=== PATIENT | female | born 1955 | race African-American/Black ===

== ENCOUNTER → 2016-08-15 | Outpatient (CLI) | payer OTHER ==
[2013-12-30 15:13] VITALS: BP 166/102
[~2016-08-15] MED LIST: CONTRAST GIVEN MC PRN; IOHEXOL 240 MG/ML 50ML VIAL. PO ONE; IOHEXOL 300 MG/ML 75 ML VIAL IV ONE; diovan; lotrel; metformin; tenex
[2016-08-15 07:26] LABS: CREATININE 0.9 mg/dL (0.6-1.0); GFR 76.8
--- NOTE | 2016-08-15 10:34 | RAD ---
EXAM: CT abdomen/pelvis with contrast. HISTORY: Left lower quadrant pain. TECHNIQUE: Computed tomography of the abdomen and pelvis was performed after the intravenous administration of 75 mL Omnipaque 300. COMPARISON: None. FINDINGS: Lung windows through the visualized portions of the bases reveal mild atelectasis. Bone windows reveal no suspicious lesions. Subcentimeter hypoattenuating foci in the liver most likely represent cysts. A phrygian cap is noted at the gallbladder. The common duct measures 11 mm. There is no distal obstructing lesion. The pancreas and pancreatic duct are unremarkable. The left adrenal gland is thickened without a discrete mass. The spleen is unremarkable. A calculus in the left renal collecting system measures 11 x 6 mm. There is a tiny calculus at the right renal lower pole. No ureteral calculi are seen. A cyst laterally in the left kidney measures 4.2 cm. There is moderate diffuse colonic diverticulosis. 2 diverticula along the ascending colon appear mildly inflamed. There is no drainable collection. Mild hyperemia about the left colon may reflect prior diverticulitis. Multiple calcifications in the uterus are consistent with degenerated fibroids. An uncalcified fibroid on the left measures 3.9 cm. A small bowel hernia contains only fat. There are no pathologically enlarged lymph nodes. There is no obstruction. IMPRESSION: 1. Diffuse moderate to severe colonic diverticulosis. 2 diverticula along the ascending colon appear mildly inflamed currently, consistent with mild acute diverticulitis. Correlate with symptoms. There is no drainable collection. Sequela of prior diverticulitis are suspected along the sigmoid colon. 2. Mild extrahepatic biliary dilatation without a clear distal obstructing lesion. Correlate for cholestasis to assess significance. MRCP/ERCP could further evaluate if there is persistent concern. 3. A left renal collecting system calculus measures 11 mm. There is a tiny right lower pole renal calculus. *One or more of the following individualized dose reduction techniques were utilized for this examination: 1. Automated exposure control. 2. Adjustment of the mA and/or kV according to patient size. 3. Use of iterative reconstruction technique.
== END | disposition home or self-care (01) ==
LOC: CT 06:54
PROVIDERS: ATTEND Family Medicine
DX: R10.32 Left lower quadrant pain (principal); K57.30 Diverticulosis of large intestine without perforation or abscess without bleeding; N20.0 Calculus of kidney
CPT/HCPCS: 36415; 74177; 82565; Q9966; Q9967

== ENCOUNTER → 2016-09-08 | Day surgery (SDC) | payer OTHER ==
[~2016-09-08] MED LIST changes: +AMLO10TA4 PO; +CIPR500T94 PO; -CONTRAST GIVEN MC PRN; +HYDR50TA6 PO; -IOHEXOL 240 MG/ML 50ML VIAL. PO ONE; -IOHEXOL 300 MG/ML 75 ML VIAL IV ONE; +IV RINGERS,LACTATED 1000ML 1,000 ML IV SCH; +LIDOCAINE 2% PF Vial for OR 5 ML VIAL. ONE; +METF750T2 PO; +METR500T4 PO; +OLME40TA PO; +PROPOFOL 40 ML IV ONE
[2016-09-08 13:20] VITALS: BP 123/76
--- NOTE | 2016-09-09 11:34 | PATHOLOGY ---
PATHOLOGY REPORT * * * * * * * * FINAL DIAGNOSIS: Colon, sigmoid, biopsy: - Adenomatous polyp. (MICHIM:; d/t: 09/09/16) REPORT ELECTRONICALLY SIGNED BY: Vj Valdez M.D. DATE/TIME: 09/09/2016 11:32 * * * * * * * * GROSS PATHOLOGY: Received in formalin labeled "Esperanza Osuna and polyp sigmoid colon," is a 0.9 x 0.6 x 0.4 cm polypoid piece of red-farr soft tissue. The margin is inked and the tissue is sectioned perpendicular to the margin and submitted in its entirety in cassette A1. (TTL; 09/08/2016) INITIAL CPT CODE(S): A; 99252 Professional services performed by [facility] [address] Technical services performed by [facility] at [address] [place] [address]. SPECIMEN(S) RECEIVED: A.Polyp sigmoid colon CLINICAL HISTORY: Screening, abdominal pain PATIENT: ESPERANZA OSUNA /AGE: 6 1955 (Age: 60) PATIENT #: [id number] ALT CASE #: SPECIMEN COLLECTION DATE: 09/08/2016 SPECIMEN RECEIVED DATE: 09/08/2016 [facility] - [address] [place] [address] - PHONE: [phone] * * * END OF REPORT * * *
== END | disposition home or self-care (01) ==
LOC: ENDOS 11:29
PROVIDERS: ATTEND Internal Medicine Gastroenterology
DX: K64.1 Second degree hemorrhoids (principal); D12.5 Benign neoplasm of sigmoid colon; K57.30 Diverticulosis of large intestine without perforation or abscess without bleeding; I10 Essential (primary) hypertension; Z87.442 Personal history of urinary calculi
CPT/HCPCS: 45385; 82947; J2704

== ENCOUNTER → 2016-12-21 | Outpatient (CLI) | payer OTHER ==
[2016-09-08 13:20] VITALS: BP 123/76
[~2016-12-21] MED LIST changes: -IV RINGERS,LACTATED 1000ML 1,000 ML IV SCH; -LIDOCAINE 2% PF Vial for OR 5 ML VIAL. ONE; -METR500T4 PO; +METR500T8 PO; -OLME40TA PO; +OLME40TA12 PO; -PROPOFOL 40 ML IV ONE
--- NOTE | 2016-12-21 11:30 | RAD ---
CT abdomen/pelvis without contrast 12/21/2016 at 0904 hours Indication: Calculus of kidney, left flank pain Comparison: CT abdomen/pelvis 08/15/2016 Technique: Multiple axial CT images of the abdomen and pelvis were performed without intravenous contrast. Coronal and sagittal reformats are provided. Findings: Lung bases are clear. Heart size is within normal limits. Simple appearing 6 mm cyst identified in the inferior right hepatic lobe. The spleen is normal. Bilateral adrenal glands are normal. The gallbladder is present without adjacent inflammatory changes. Pancreas is normal in appearance. No intrahepatic or extrahepatic biliary ductal dilatation. The abdominal aorta is normal in course and caliber. There are no enlarged lymph nodes in the abdomen or pelvis. There is no free intraperitoneal air. No free fluid within the abdomen or pelvis. There is a 10 mm nonobstructing calculus in the left renal pelvis, unchanged since 08/15/2016. Two 3-4 mm calculi are identified in the interpolar region of the right kidney. There is no hydronephrosis. Stable simple appearing left renal cysts. No contour deforming renal mass. Small and large bowel are normal in caliber. A normal appendix is visualized. Colonic diverticulosis. No pericolonic inflammatory changes are present. The urinary bladder is normal in appearance. Calcite uterine fibroids are noted. No adnexal masses are identified. No suspicious osseous lesions are identified. Impression: 1. Stable 10 mm nonobstructing calculus in the left renal pelvis, unchanged since 08/15/2016. No hydronephrosis. 2. Two nonobstructing renal calculi are identified in the interpolar region of the right kidney measuring 3-4 mm. No hydronephrosis. 3. Colonic diverticulosis without CT evidence for acute diverticulitis. 4. Uterine leiomyoma are present. No adnexal masses. PQRS Compliance Statement: One or more of the following individualized dose reduction techniques were utilized for this examination: 1. Automated exposure control 2. Adjustment of the mA and/or kV according to patient size 3. Use of iterative reconstruction technique
== END | disposition home or self-care (01) ==
LOC: CT 08:59
PROVIDERS: ATTEND Urology
DX: N20.0 Calculus of kidney (principal); K57.30 Diverticulosis of large intestine without perforation or abscess without bleeding; D25.9 Leiomyoma of uterus, unspecified
CPT/HCPCS: 74176

== ENCOUNTER → 2017-05-15 | Outpatient (CLI) | payer OTHER ==
[2016-09-08 13:20] VITALS: BP 123/76
--- NOTE | 2017-05-15 10:20 | CARD ---
APPROVED REPORT EXAM: Two-dimensional and M-mode echocardiogram with Doppler and color Doppler. Other Information Quality : Good INDICATION Abnormal ECG Hypertension/HCVD 2D DIMENSIONS RVDd3.0 (2.9-3.5cm)Left Atrium(2D)3.3 (1.6-4.0cm) IVSd1.4 (0.7-1.1cm)Aortic Root(2D)2.6 (2.0-3.7cm) LVDd4.6 (3.9-5.9cm)LVOT Diameter1.9 (1.8-2.4cm) PWd1.0 (0.7-1.1cm)IVSs1.3 (0.8-1.2cm) LVDs3.2 (2.5-4.0cm)FS (%) 30.5 % PWs1.2 (0.8-1.2cm)SV56.6 ml LVEF(%)58.0 (>50%) Aortic Valve AoV Peak Bunny.154.0cm/sAoV VTI33.9cm AO Peak GR.9.5mmHgLVOT Peak Bunny.121.2cm/s AO Mean GR.5mmHgAVA (VMAX)1.70cm2 Mitral Valve MV E Zqubtxcn60.8cm/sMV E Peak Gr.28mmHg MV DECEL [id number] A Fxigddcy20.9cm/s MV WUO28noF/A Ratio0.8 MVA (PHT)2.25cm2 TDI E/Lateral E'8.7E/Medial E'9.2 Pulmonary Valve PV Peak Podllqcy712.2cm/sPV Peak Grad.5mmHg Tricuspid Valve TR P. Dvgkmtdc900za/sRAP MXVUPYFE2hiXw TR Peak Gr.30idGoAXGV84hkAi LEFT VENTRICLE The left ventricle is normal size. Sigmoid septum. There is mild septal hypertrophy. The left ventric ular systolic function is normal. The ejection fraction is estimated at 55-60%. There is normal LV se gmental wall motion. Transmitral Doppler flow pattern is Grade I-abnormal relaxation pattern. RIGHT VENTRICLE The right ventricle is normal size. The right ventricular systolic function is normal. ATRIA The left atrium size is normal. The right atrium size is normal. The interatrial septum is intact wit h no evidence for an atrial septal defect or patent foramen ovale as noted on 2-D or Doppler imaging. AORTIC VALVE The aortic valve is normal in structure and function. Doppler and Color Flow revealed no significant aortic regurgitation. There is no significant aortic valvular stenosis. MITRAL VALVE The mitral valve is thickened but opens well. There is no evidence of mitral valve prolapse. There is no mitral valve stenosis. Doppler and Color-flow revealed trace mitral regurgitation. TRICUSPID VALVE The tricuspid valve leaflets are thickened , but open well. Doppler and Color Flow revealed mild to m oderate tricuspid regurgitation. There is no tricuspid valve stenosis. PULMONIC VALVE Doppler and Color Flow revealed mild pulmonic valvular regurgitation. GREAT VESSELS The aortic root is normal in size. The ascending aorta is normal in size. The IVC is normal in size a nd collapses >50% with inspiration. PERICARDIAL EFFUSION There is no pleural effusion. There is no evidence of significant pericardial effusion. Critical Notification Critical Value: No <Conclusion> The left ventricular systolic function is normal. The ejection fraction is estimated at 55-60%. There is normal LV segmental wall motion. Transmitral Doppler flow pattern is Grade I-abnormal relaxation pattern. Trace mitral regurgitation. Mild to moderate tricuspid regurgitation. There is no evidence of significant pericardial effusion.
== END | disposition home or self-care (01) ==
LOC: ECHO 07:46
PROVIDERS: ATTEND Internal Medicine Cardiovascular Disease
DX: I11.9 Hypertensive heart disease without heart failure (principal); R94.31 Abnormal electrocardiogram [ECG] [EKG]
CPT/HCPCS: 93306

== ENCOUNTER → 2017-06-19 | Outpatient (CLI) | payer OTHER ==
[2017-06-19] MEDS: REGADENOSON 0.4 MG/5 ML DISP.SYRIN. IV (10:22)
== END | disposition home or self-care (01) ==
LOC: NM 08:33
DX: R07.9 Chest pain, unspecified (principal); R20.0 Anesthesia of skin; M79.602 Pain in left arm; R51 Headache; I10 Essential (primary) hypertension
CPT/HCPCS: 78452; 93017; 96374; 96375; 96376; A9500; J2785

== ENCOUNTER 2017-10-30 13:04 | Emergency (ER) | payer OTHER | END 2017-10-30 14:13 | disposition home or self-care (01) | LOC: ER 13:04 | DX: S80.821A Blister (nonthermal), right lower leg, initial encounter (principal); L08.9 Local infection of the skin and subcutaneous tissue, unspecified; E11.9 Type 2 diabetes mellitus without complications; I10 Essential (primary) hypertension; Z87.442 Personal history of urinary calculi; W57.XXXA Bitten or stung by nonvenomous insect and other nonvenomous arthropods, initial encounter; Y92.89 Other specified places as the place of occurrence of the external cause; Y93.89 Activity, other specified; Y99.8 Other external cause status | CPT/HCPCS: 99283 ==

== ENCOUNTER → 2018-05-17 | Outpatient (CLI) | payer OTHER ==
[2017-10-30 13:31] VITALS: BP 168/84
[~2018-05-17] MED LIST changes: +CEPH-264 PO; +CONTRAST GIVEN. MC PRN; +IOHEXOL 240 MG/ML 50ML VIAL. IV ONE; +METR-84 PO; -METR500T8 PO
[2018-05-17] MEDS: IOHEXOL 300 MG/ML 100ML VIAL. IV ONE (09:38)
--- NOTE | 2018-05-17 16:25 | RAD ---
CT Abdomen and Pelvis with contrast 05/17/2018 Clinical Indication: Left lower quadrant abdominal pain Comparison: CT abdomen and pelvis 12/21/2016 Technique: Multiple CT images of the abdomen and pelvis were obtained with contrast following intravenous administration of 75 mL Isovue 370 *One or more of the following individualized dose reduction techniques were utilized for this examination: 1. Automated exposure control. 2. Adjustment of the mA and/or kV according to patient size. 3. Use of iterative reconstruction technique. Findings: Heart size is normal. Lung bases are clear. Multiple right breast calcifications. Liver is normal in size and morphology. Stable hepatic subcentimeter hypodensities hepatic segment 4A series 2/image 17, segment 5 image 24 and segment 6 image 27. Gallbladder unremarkable. No biliary ductal dilatation. Spleen and right adrenal gland unremarkable. There is stable low-attenuation nodularity of the left adrenal gland, likely adrenal hyperplasia or benign adenomatous change. Right kidney unremarkable. Stable left renal simple cysts. Decrease in nonobstructive calculus in the left renal pelvis measuring 0.4 cm. Development of nonobstructive calculus in the inferior pole left kidney measuring 0.4 cm. Mild pancreatic atrophy. No main branch pancreatic ductal dilatation. Small and large bowel loops are normal in caliber without obstruction. Pancolonic diverticulosis, greatest remarkable degree, at the sigmoid colon without acute diverticulitis. The appendix is normal in appearance. No abdominal free fluid. No pneumoperitoneum. No retroperitoneal or mesenteric lymphadenopathy. Heterogeneous, nodular enlargement of the uterus fundus, some of the nodules have internal calcification most consistent with fibroids. Minimally distended and unopacified urinary bladder unremarkable. No iliac or inguinal lymphadenopathy. There are no destructive osseous lesions. IMPRESSION: 1. Right breast calcifications, indeterminate. Correlation with mammography is recommended. 2. No CT evidence of acute abdominal or pelvic process. 3. Pancolonic diverticulosis without diverticulitis. 4. Nonobstructive left nephrolithiasis. 5. Fibroid uterus. Electronically signed by: Madan Gannon MD (05/17/2018 4:21 PM) [id number]
== END | disposition home or self-care (01) ==
LOC: CT 08:06
PROVIDERS: ATTEND Family Medicine
DX: K57.30 Diverticulosis of large intestine without perforation or abscess without bleeding (principal); K86.89 Other specified diseases of pancreas; N20.0 Calculus of kidney; D25.9 Leiomyoma of uterus, unspecified; N85.2 Hypertrophy of uterus; N28.1 Cyst of kidney, acquired
CPT/HCPCS: 74177; Q9967

== ENCOUNTER → 2018-10-25 | Outpatient (CLI) | payer OTHER ==
[2017-10-30 13:31] VITALS: BP 168/84
[~2018-10-25] MED LIST changes: -CONTRAST GIVEN. MC PRN; -IOHEXOL 240 MG/ML 50ML VIAL. IV ONE; +METR-34 PO; -METR-84 PO
--- NOTE | 2018-10-25 16:48 | KCIC ---
Pelvic ultrasound to include transabdominal and transvaginal imaging 10/25/2018 CLINICAL HISTORY: Left-sided pelvic pain. History of uterine fibroids. TECHNIQUE: Using the distended urinary bladder as a sonographic window, a real-time ultrasound examination of the pelvis was performed. Additionally in an attempt to better evaluate the uterus and adnexa, a transvaginal ultrasound study was performed. Multiple images were obtained. Comparison is made to the patient's CT scan of the abdomen and pelvis dated 08/15/2016. The uterus is mildly enlarged. It measures 11.8 x 7.9 x 5.6 cm in longitudinal, transverse, and AP dimensions. The endometrial echo complex measures 1.1 mm in thickness which is within normal limits. Multiple hypoechoic partially calcified masses are seen scattered throughout the uterus consistent with fibroids. These measure 1 cm to 4 cm in size. The largest fibroid is located within the left posterior aspect of the lower uterine segment. Both ovaries are within normal limits in size and echogenicity. The right ovary measures 2.8 x 2.3 x 1.7 cm in size. The left ovary measures 2.9 x 2.1 x 1.6 cm in size. No adnexal mass is seen. No free fluid is noted. IMPRESSION: Enlarged fibroid uterus. Otherwise negative study. Electronically signed by: Rob Tadeo MD (10/25/2018 4:45 PM) [facility]
== END | disposition home or self-care (01) ==
LOC: KCIC US 15:26
PROVIDERS: ATTEND Obstetrics & Gynecology
DX: N85.2 Hypertrophy of uterus (principal); N85.9 Noninflammatory disorder of uterus, unspecified
CPT/HCPCS: 76830; 76856

== ENCOUNTER 2019-07-31 05:09 | Emergency (ER) | payer OTHER, MEDICARE ==
[~2019-07-31] VITALS: Ht 167.6 cm; Wt 97.7 kg
[~2019-07-31 05:09] MED LIST changes: -METF750T2 PO; +METF750T39 PO
[2019-07-31 05:54] LABS: BILIRUBIN,URINE NEGATIVE (NEG); CLARITY,URINE CLEAR; COLOR,URINE YELLOW; NITRITE,URINE NEGATIVE (NEG); PH,URINE 7.5; PROTEIN,URINE NEGATIVE (NEG-TRACE); UROBILINOGEN,URINE 0.2 mg/dL (0.2 mg/dL)
--- NOTE | 2019-07-31 06:00 | PHYS DOC ---
Past Medical History Past Medical History: Diabetes-Type II, Hypertension, Kidney Stone, Other Additional Past Medical Histor: BENIGN TUMORS IN UTERUS (LORENZO FARAH DO) Past Surgical History: Other Additional Past Surgical Histo: BIOPSIES BREAST,LITHOTRIPSY (LORENZO FARAH DO) Smoking Status: Never Smoker Alcohol Use: None Drug Use: None (LORENZO FARAH DO) Adult General Chief Complaint Chief Complaint: ABDOMINAL PAIN HPI HPI Patient is a 63 year old -[place] female with history of kidney stones, hypertension, uterine fibroids who presents with acute onset left flank pain starting 2 hours prior to ED arrival radiating to left pelvis. Pain is described as sharp and burning component and is constant. Pain is not worse with position change, palpation or ambulation. Reports nausea and sweats. No fevers or chills. No CVA tenderness, urinary frequency urgency dysuria or hematuria. No prior abdominal surgeries. No other acute symptoms or complaints[] (LORENZO FARAH DO) Review of Systems Review of Systems Review symptoms as per history of present illness. All other review symptoms are negative. All other systems were reviewed and found to be within normal limits, except as documented in this note. (LORENZO FARAH DO) Current Medications Current Medications Current Medications Medications (Trade) Dose Ordered Sig/Taisha Start Time Stop Time Status Last Admin Dose Admin Info (CONTRAST GIVEN -- Rx MONITORING) 1 each PRN DAILY PRN 07/31/19 07:30 08/02/19 07:29 Iohexol (Omnipaque 300 Mg/ml) 75 ml 1X ONCE 07/31/19 07:30 07/31/19 07:31 DC 07/31/19 07:33 75 ML (CHAVEZ WEIR MD) Allergies Allergies Allergies Coded Allergies Type Severity Reaction Last Updated Verified No Known Drug Allergies 09/08/16 No (CHAVEZ WEIR MD) Physical Exam Physical Exam Constitutional: Discomfort secondary pain, well nourished, no acute distress, no n-toxic appearance. [] HENT: Normocephalic, atraumatic, bilateral external ears normal, oropharynx moist, nose normal. [] Eyes: PERRLA, EOMI, conjunctiva normal, no discharge. [] Neck: Normal range of motion, no tenderness, supple, no stridor. [] Cardiovascular:Heart rate regular rhythm, no murmur [] Lungs & Thorax: Bilateral breath sounds clear to auscultation [] Abdomen: Bowel sounds normal, soft, nondistended, no tenderness[] Skin: Warm, dry [] Back: No tenderness, no CVA tenderness. [] Extremities: No tenderness,no edema. [] Neurologic: Alert and oriented X 3, normal motor function, normal sensory function, no focal deficits noted. [] Psychologic: Affect normal, judgement normal, mood normal. [] (LORENZO FARAH DO) Current Patient Data Vital Signs Vital Signs Date Time Temp Pulse Resp B/P (MAP) Pulse Ox O2 Delivery O2 Flow Rate FiO2 07/31/19 06:21 76 197/94 (128) 98 Room Air 07/31/19 05:20 97.6 20 97.6 (CHAVEZ WEIR MD) Lab Values Laboratory Tests Test 07/31/19 05:23 07/31/19 06:43 Urine Collection Type Unknown Urine Color Yellow Urine Clarity Clear Urine pH 7.5 Urine Specific [place] 1.010 Urine Protein Negative mg/dL (NEG-TRACE) Urine Glucose (UA) Negative mg/dL (NEG) Urine Ketones (Stick) Negative mg/dL (NEG) Urine Blood Moderate (NEG) Urine Nitrite Negative (NEG) Urine Bilirubin Negative (NEG) Urine Urobilinogen Dipstick 0.2 mg/dL (0.2 mg/dL) Urine Leukocyte Esterase Moderate (NEG) Urine RBC 3-5 /HPF (0-2) Urine WBC 11-20 /HPF (0-4) Urine Squamous Epithelial Cells Few /LPF Urine Bacteria Moderate /HPF (0-FEW) White Blood Count 11.5 x10^3/uL (4.0-11.0) H Red Blood Count 4.67 x10^6/uL (3.50-5.40) Hemoglobin 13.6 g/dL (12.0-15.5) Hematocrit 41.3 % (36.0-47.0) Mean Corpuscular Volume 89 fL (79-100) Mean Corpuscular Hemoglobin 29 pg (25-35) Mean Corpuscular Hemoglobin Concent 33 g/dL (31-37) Red Cell Distribution Width 15.6 % (11.5-14.5) H Platelet Count 241 x10^3/uL (140-400) Neutrophils (%) (Auto) 92 % (31-73) H Lymphocytes (%) (Auto) 4 % (24-48) L Monocytes (%) (Auto) 4 % (0-9) Eosinophils (%) (Auto) 1 % (0-3) Basophils (%) (Auto) 0 % (0-3) Neutrophils # (Auto) 10.5 x10^3/uL (1.8-7.7) H Lymphocytes # (Auto) 0.4 x10^3/uL (1.0-4.8) L Monocytes # (Auto) 0.4 x10^3/uL (0.0-1.1) Eosinophils # (Auto) 0.1 x10^3/uL (0.0-0.7) Basophils # (Auto) 0.0 x10^3/uL (0.0-0.2) Platelet Estimate Pending Sodium Level 140 mmol/L (136-145) Potassium Level 3.7 mmol/L (3.5-5.1) Chloride Level 105 mmol/L (98-107) Carbon Dioxide Level 25 mmol/L (21-32) Anion Gap 10 (6-14) Blood Urea Nitrogen 16 mg/dL (7-20) Creatinine 0.9 mg/dL (0.6-1.0) Estimated GFR (Cockcroft-Gault) 76.0 BUN/Creatinine Ratio 18 (6-20) Glucose Level 131 mg/dL (70-99) H Lactic Acid Level 1.5 mmol/L (0.4-2.0) Calcium Level 9.3 mg/dL (8.5-10.1) Total Bilirubin 0.9 mg/dL (0.2-1.0) Aspartate Amino Transferase (AST) 20 U/L (15-37) Alanine Aminotransferase (ALT) 13 U/L (14-59) L Alkaline Phosphatase 68 U/L (46-116) Troponin I Quantitative < 0.017 ng/mL (0.000-0.055) Total Protein 8.2 g/dL (6.4-8.2) Albumin 3.6 g/dL (3.4-5.0) Albumin/Globulin Ratio 0.8 (1.0-1.7) L Lipase 102 U/L (73-393) Laboratory Tests 07/31/19 06:43 Laboratory Tests 07/31/19 06:43 (CHAVEZ WEIR MD) EKG EKG [EKG: Pending] (LORENZO FARAH DO) EKG EKG obtained and reviewed by myself shows sinus rhythm. The EKG is interpreting it as an irregular rhythm. I can see P waves before every QRS. Otherwise ST segments are congruent. Not suggestive of ACS. Reg rate. (CHAVEZ WEIR MD) Radiology/Procedures Radiology/Procedures [] (LORENZO FARAH DO) Course & Med Decision Making Course & Med Decision Making Pertinent Labs and Imaging studies reviewed. (See chart for details) [Work up in progress. Care will be transitioned to Dr. Weir at 06:00 at shift change. (LORENZO FARAH DO) Course & Med Decision Making 63-year-old female presenting the emergency department today with some left- sided flank pain that radiated into the lower left abdomen this morning around 2:00. It was a sharp shooting pain which is now almost completely resolved. She has not had any vomiting or fevers. She does have a history of kidney stones but has not noticed any blood in her urine. Patient was signed out to me at 6 AM at shift change. CBC shows white blood cell count of 11.5. Nonspecific mild elevation. Chemistry panel is unremarkable. Lactic acid within normal limits. Urinalysis shows moderate blood with moderate leuk esterase and moderate bacteria burden with a few squamous cells. CT shows diverticulosis without any acute inflammation. There is more renal calculi burden on the left. Is possible that her symptoms are kidney stone related. Given her leuk esterase being posit romario we'll give her oral Bactrim and some oral pain medications to follow-up with her doctor tomorrow for reexamination. On reexamination her vitals continued to be reassuring and her pain is resolved.The patient has been examined and was not found to have an emergency medical condition. The patient was then discharged home in stable condition to follow up with their primary care physician over the next 1-2 days. They were to return if their symptoms worsened or if they were concerned for any reason. They were also instructed to return to the emergency department if they were unable to get the recommended and appropriate follow-up. [id number] discharge instructions and return precautions were given. Patient's questions were answered to their satisfaction. Patient is comfortable with plan. I went to write for Bactrim and the patient's metformin and arb have interactions so we will switch to cipro. (CHAVEZ WEIR MD) Dragon Disclaimer Dragon Disclaimer This electronic medical record was generated, in whole or in part, using a voice recognition dictation system. (LORENZO FARAH DO) Departure Departure Impression: Primary Impression: Left flank pain Disposition: 01 HOME, SELF-CARE Condition: STABLE Referrals: JACKSON CHAVEZ MD (PCP) Patient Instructions: Kidney Stones Additional Instructions: Thank you for allowing us to participate in your care today. Return to the emergency department you have any new or worsening symptoms, or if you are concerned for any reason. Return to emergency department if you have any new or concerning symptoms including but not limited to fever, chills, nausea, vomiting, intractable pain, any new rashes, chest pain, shortness of air, uncontrolled bleeding, difficulty breathing, and/or vision loss. Follow up with your primary care physician within 1 day. Call your Primary Doctor tomorrow and inform them of your visit today. If you do not have a primary care provider we are happy to provide you with a list of our primary care providers contact information. This condition should be evaluated by your primary care physician and any recommended consulting services for continued management within 2 days after discharge. If at any time, you are having difficulty getting into your primary care doctor or a specialist, return to the emergency department. Scripts Ciprofloxacin Hcl (CIPRO) 500 Mg Tablet 1 TAB PO BID for 7 Days, #14 TAB 0 Refills Prov: CHAVEZ WEIR MD 07/31/19 LORENZO FARAH DO Jul 31, 2019 06:00 CHAVEZ WEIR MD Jul 31, 2019 06:59
[2019-07-31 06:04] LABS: BACTERIA,URINE MODERATE /HPF (0-FEW); SQUAMOUS EPITHELIAL CELL,UR FEW /LPF
--- NOTE | 2019-07-31 06:41 | EKG ---
[facility] [address] [place] [address] Test Date: 2019-07-31 Test Time: 06:08:04 Pat Name: ESPERANZA HINSON Department: Room: Gender: F Whey Department Operator: : 1955 Requested By: LORENZO FARAH Order Number: [id number] Reading MD: Measurements Intervals [place] Rate: 76 P: AK: QRS: -38 QRSD: 100 T: 84 QT: 332 QTc: 373 Interpretive Statements IRREGULAR RHYTHM, NO P-WAVE FOUND ABNORMAL LEFT AXIS DEVIATION LEFT ANTERIOR FASCICULAR BLOCK T ABNORMALITY IN HIGH LATERAL LEADS ABNORMAL ECG RI6.01 No previous ECG available for comparison
[2019-07-31 07:00] LABS: BASO % 0 % (0-3); EOS # 0.1 x10^3/uL (0.0-0.7); EOS % 1 % (0-3); HEMATOCRIT 41.3 % (36.0-47.0); HEMOGLOBIN 13.6 g/dL (12.0-15.5); LYMPH # 0.4 x10^3/uL (1.0-4.8); LYMPH % 4 % (24-48); MEAN CORPUSCULAR HEMOGLOBIN 29 pg (25-35); MEAN CORPUSCULAR HGB CONC 33 g/dL (31-37); MEAN CORPUSCULAR VOLUME 89 fL (79-100); MONO # 0.4 x10^3/uL (0.0-1.1); MONO % 4 % (0-9); NEUT # 10.5 x10^3/uL (1.8-7.7); NEUT % 92 % (31-73); PLATELET COUNT 241 x10^3/uL (140-400); RED BLOOD COUNT 4.67 x10^6/uL (3.50-5.40); RED CELL DISTRIBUTION WIDTH 15.6 % (11.5-14.5); WHITE BLOOD COUNT 11.5 x10^3/uL (4.0-11.0)
[2019-07-31 07:08] LABS: CALCIUM 9.3 mg/dL (8.5-10.1); CREATININE 0.9 mg/dL (0.6-1.0); POTASSIUM 3.7 mmol/L (3.5-5.1)
[2019-07-31 07:14] LABS: ALBUMIN 3.6 g/dL (3.4-5.0); ALBUMIN/GLOBULIN RATIO 0.8 (1.0-1.7); TOTAL BILIRUBIN 0.9 mg/dL (0.2-1.0); TOTAL PROTEIN 8.2 g/dL (6.4-8.2)
[2019-07-31] MEDS ORDERED: IOHEXOL 300 MG/ML 100ML VIAL. IV ONE (07:30)
[2019-07-31] MEDS ORDERED: CONTRAST GIVEN. MC PRN (07:30)
--- NOTE | 2019-07-31 08:01 | RAD ---
Examination: CT ABD PELV W/ IV CONTRST ONLY History: Left flank and abdominal pain Comparison/Correlation: 12/21/2016 CT abdomen and pelvis without contrast 05/17/2018 CT abdomen and pelvis with contrast Findings: Axial images of the abdomen and pelvis were obtained following IV contrast. Sagittal and coronal reformatted images were provided. Images lung bases are clear. Low-attenuation lesions involving the liver are present similar to the previous exam likely representing benign cysts or biliary hamartomas and no further follow-up required. Spleen, pancreas, and right adrenal gland are normal. Fullness of the left jugular line is noted with low attenuation which may represent hyperplasia or benign adenoma. Morphology is unchanged compared to prior exams. At least 2 punctate right renal inferior pole calyceal calculi are present. Left renal lower pole calculus measuring 0.8 cm diameter is present. Smaller additional calculi also are present. These are similar on correlation with 05/17/2018. Increased calculus burden is noted since 12/21/2016. Benign-appearing renal cysts are present and there is no need for further follow-up. No hydronephrosis or hydroureter. The bladder is unremarkable. Gallbladder fossa is unremarkable. Diverticulosis is present. No bowel obstruction. The appendix is normal. Small umbilical hernia containing omental fat. No enlarged abdominal or pelvic lymph nodes. Fibroid uterus is present. No ascites or pelvic free fluid. Impression: Diverticulosis. No acute inflammation. Bilateral nonobstructive renal calculi. Increased left renal calculus burden since 12/21/2016. PQRS Compliance Statement: One or more of the following individualized dose reduction techniques were utilized for this examination: 1. Automated exposure control 2. Adjustment of the mA and/or kV according to patient size 3. Use of iterative reconstruction technique Electronically signed by: Thierry Davis MD (07/31/2019 7:58 AM) [facility]
[2019-07-31] MEDS ORDERED: CIPR500T94 PO (08:16)
[2019-07-31 08:20] LABS: % BANDS 8 % (0-9); % BASOS 1 % (0-3); % EOS 1 % (0-5); % LYMPHS 4 % (24-48); % MONOS 2 % (0-10); % SEGS 84 % (35-66)
[2019-07-31] MEDS ORDERED: HYDR-2761 PO (08:20)
[2019-07-31 08:21] VITALS: BP 168/78
[2019-07-31 08:21] LABS: PLT ESTIMATE ADEQUATE (ADEQUATE)
== END 2019-07-31 08:45 | disposition home or self-care (01) ==
LOC: ER 05:09
DX: R10.32 Left lower quadrant pain (principal); R11.0 Nausea; R61 Generalized hyperhidrosis; I10 Essential (primary) hypertension; E11.9 Type 2 diabetes mellitus without complications; Z87.442 Personal history of urinary calculi
CPT/HCPCS: 36415; 74177; 80053; 81001; 83605; 83690; 84484; 85007; 85025; 87086; 93005; 99285; Q9967

== ENCOUNTER 2020-03-17 19:34 | Inpatient (IN) | payer MEDICARE, OTHER ==
[~2020-03-17] VITALS: Ht 167.6 cm; Wt 100.0 kg
[~2020-03-17 19:34] MED LIST changes: +HYDR-2761 PO
--- NOTE | 2020-03-17 21:55 | RAD ---
3 views the right ankle dated 03/17/2020. No comparison available. Clinical data indication: Pain after injury. FINDINGS: 3 views the right ankle show an oblique comminuted fractures of the distal one third fibular shaft, mildly displaced. There is also mildly displaced fracture of the medial malleolus, extending transverse at the malleoli are base. A nondisplaced fracture through the posterior malleolus seen on the lateral view. Diffuse soft tissue swelling. Small plantar spur. There is an ankle joint effusion. IMPRESSION: Trimalleolar fracture as described above. Electronically signed by: Enrique Aguirre MD (03/17/2020 9:52 PM) [facility]
[2020-03-17] MEDS ORDERED: MORPHINE SULFATE 10 MG/ML VIAL. IV ONE (22:15)
--- NOTE | 2020-03-17 22:48 | PHYS DOC ---
Past Medical History Past Medical History: Diabetes-Type II, Hypertension, Kidney Stone, Other Additional Past Medical Histor: BENIGN TUMORS IN UTERUS Past Surgical History: Other Additional Past Surgical Histo: BIOPSIES BREAST,LITHOTRIPSY Smoking Status: Never Smoker Alcohol Use: None Drug Use: None General Adult EDM: Chief Complaint: ANKLE PROBLEM HPI: HPI: Patient is a 64-year-old female who presents to the emergency room complaining of severe right ankle pain. Patient fell twisting her ankle sideways. She states it was a mechanical fall. She denies any syncope. She denies any other injuries. She still has movement in her toes. She has a sensation in her toes. Review of Systems: Review of Systems: General: Denies fever, chills, sweats, fatigue Eyes: Denies drainage, blurred vision, eye redness HENT: Denies rhinorrhea, sore throat, earache Respiratory: Denies cough, shortness of breath, wheezing Cardiac: Denies edema, palpitations, chest pain GI: Denies abdominal pain, Nausea, vomiting MSK: Denies back pain, neck pain Skin: Denies rash, jaundice Neuro: Denies headache, dizziness Psychiatric: Denies SI/HI Heart Score: Risk Factors: Risk Factors: DM, Current or recent (<one month) smoker, HTN, HLP, family history of CAD, obesity. Risk Scores: Score 0 - 3: 2.5% MACE over next 6 weeks - Discharge Home Score 4 - 6: 20.3% MACE over next 6 weeks - Admit for Clinical Observation Score 7 - 10: 72.7% MACE over next 6 weeks - Early Invasive Strategies Current Medications: Current Medications Medications (Trade) Dose Ordered Sig/[facility] Start Time Stop Time Status Last Admin Dose Admin Morphine Sulfate (Morphine Sulfate) 5 mg 1X ONCE 03/17/20 22:15 03/17/20 22:16 DC Allergies: Allergies: Allergies Coded Allergies Type Severity Reaction Last Updated Verified No Known Drug Allergies 09/08/16 No Physical Exam: PE: General: Awake, alert, NAD. Well Nourished, well hydrated. Cooperative HEENT: Atraumatic, EOMI, PERRL, airway patent, moist oral mucosa Neck: Supple, trachea midline Respiratory: CTA bilaterally, normal effort, no wheezing/crackles CV: RRR, no murmur, cap refill <2 GI: Soft, nondistended, nontender, no masses MSK: Right ankle: Significant swelling in ankle and foot, 2+ DP pulse, intact sensation, normal distal capillary refill Skin: Warm, dry, abrasion to medial right ankle Neuro: A&O x3, speech NL, sensory and motor grossly intact, no focal deficits Psych: Normal affect, normal mood, not suicidal or homicidal Current Patient Data: Vital Signs: Vital Signs Date Time Temp Pulse Resp B/P (MAP) Pulse Ox O2 Delivery O2 Flow Rate FiO2 03/17/20 21:00 98.2 77 16 183/101 (128) 100 Room Air 98.2 EKG: EKG: [] Radiology/Procedures: Radiology/Procedures: [] Course & Med Decision Making: Course & Med Decision Making Pertinent Labs and Imaging studies reviewed. (See chart for details) Patient is 64-year-old female presents to the emergency room complaining of ankle pain. Patient has obvious deformity. X-ray shows trimalar fracture. I have discussed the case with Dr. Roberson the on-call orthopedic surgeon who rec ommends admission. He will evaluate her in the morning. Work up was reviewed and was remarkable for trimalar fracture. At this time, patient would benefit from further work up and management. Patient is not stable for discharge at this time. Results, vitals, interventions, and plan was discussed with the patient. Patient was given opportunity to ask any questions and are in agreement with plan for admission. Patient was discussed with admitting physician and bridge admission orders were placed. Further care will be managed by inpatient team. Temi Disclaimer: Temi Disclaimer: This electronic medical record was generated, in whole or in part, using a voice recognition dictation system. Departure Departure Impression: Primary Impression: Trimalleolar fracture of ankle, closed Disposition: ADMITTED INPATIENT Condition: STABLE Referrals: JACKSON CHAVEZ MD (PCP) ELISABET IVAN MD Mar 17, 2020 22:48
[2020-03-17 23:11] LABS: BASO # 0.1 x10^3/uL (0.0-0.2); BASO % 1 % (0-3); EOS # 0.1 x10^3/uL (0.0-0.7); EOS % 1 % (0-3); HEMATOCRIT 40.6 % (36.0-47.0); HEMOGLOBIN 13.5 g/dL (12.0-15.5); LYMPH # 1.9 x10^3/uL (1.0-4.8); LYMPH % 19 % (24-48); MEAN CORPUSCULAR HEMOGLOBIN 29 pg (25-35); MEAN CORPUSCULAR HGB CONC 33 g/dL (31-37); MEAN CORPUSCULAR VOLUME 88 fL (79-100); MONO # 0.6 x10^3/uL (0.0-1.1); MONO % 6 % (0-9); NEUT % 72 % (31-73); PLATELET COUNT 289 x10^3/uL (140-400); RED BLOOD COUNT 4.63 x10^6/uL (3.50-5.40); RED CELL DISTRIBUTION WIDTH 15.4 % (11.5-14.5); WHITE BLOOD COUNT 9.7 x10^3/uL (4.0-11.0)
[2020-03-17 23:21] LABS: CALCIUM 9.1 mg/dL (8.5-10.1); CREATININE 0.8 mg/dL (0.6-1.0); GFR 86.8
[2020-03-18] MEDS ORDERED: HYDROmorphone 2 MG/ML VIAL IVP PRN (00:45)
[2020-03-18] MEDS: IV NORMAL SALINE 1000ML BAG 1,000 ML IV SCH ×4 (01:28→19:19)
[2020-03-18] MEDS: HYDROmorphone 2 MG/ML VIAL IVP PRN ×2 (01:29→23:04)
[2020-03-18 02:00] VITALS: BP 144/84
[2020-03-18] MEDS ORDERED: AMLO-187 PO (03:48)
[2020-03-18] MEDS ORDERED: HYDR25TA10 PO (03:48)
[2020-03-18] MEDS ORDERED: SITA100T PO (03:48)
[2020-03-18] MEDS ORDERED: LOSA100T14 PO (03:48)
[2020-03-18] MEDS: fentaNYL PF VIAL 100 MCG/2 ML VIAL IVP PRN ×5 (04:29→21:30)
--- NOTE | 2020-03-18 06:21 | EKG ---
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
[2020-03-18 07:00] VITALS: BP 160/97
--- NOTE | 2020-03-18 09:37 | PDOC1 ---
History and Physical Date of Admission Date of Admission DATE: 03/18/20 TIME: 09:34 Identification/Chief Complaint Chief Complaint SEEN IN er after fall, twisting of right ankle 64-year-old female , complaining of severe right ankle pain. Patient fell twisting her ankle sideways. xray c/w trimalleolar fracture, FELL AT THE WHYTE DENIES CHEST PAIN Was wearing tennis shoes, slipped Past Medical History Past Medical History Past Medical History Past Medical History: Diabetes-Type II, Hypertension, Kidney Stone, Other Additional Past Medical Histor: BENIGN TUMORS IN UTERUS Past Surgical History: Other Additional Past Surgical Histo: BIOPSIES BREAST,LITHOTRIPSY Smoking Status: Never Smoker Alcohol Use: None Drug Use: None FHX OBESITY, HTN Cardiovascular: HTN Heme/Onc: No pertinent hx Family History Family History: Hypertension Social History Smoke: No ALCOHOL: none Drugs: None Current Problem List Problem List Problems Medical Problems: (1) Trimalleolar fracture of ankle, closed Status: Acute Current Medications Current Medications Current Medications Morphine Sulfate (Morphine Sulfate) 5 mg 1X ONCE IV Last administered on 03/17/20at 22:58; Start 03/17/20 at 22:15; Stop 03/17/20 at 22:16; Status DC Hydromorphone HCl (Dilaudid) 1 mg PRN Q4HRS PRN IVP SEVERE PAIN 7-10; Start 03/18/20 at 00:45; Stop 03/18/20 at 00:42; Status DC Hydromorphone HCl (Dilaudid) 1 mg PRN Q6HRS PRN IVP SEVERE PAIN 7-10 Last administered on 03/18/20at 01:29; Start 03/18/20 at 00:45 Sodium Chloride 1,000 ml @ 100 mls/hr Q10H IV Last administered on 03/18/20at 09:04; Start 03/18/20 at 01:00 Fentanyl Citrate (Fentanyl 2ml Vial) 50 mcg PRN Q3HRS PRN IVP PAIN Last administered on 03/18/20at 09:05; Start 03/18/20 at 04:15 Active Scripts Active Hydrocodone-Apap 5-325 (Hydrocodone Bit/Acetaminophen) 1 Tab Tablet 1 Tab PO PRN Q8HRS PRN Reported Hydrochlorothiazide 25 Mg Tablet 1 Tab PO DAILY Januvia (Sitagliptin Phosphate) 100 Mg Tablet 1 Tab PO DAILY Losartan Potassium 100 Mg Tablet 1 Tab PO DAILY Amlodipine Besylate 10 Mg Tablet 1 Tab PO DAILY Metformin Hcl Er (Metformin Hcl) 750 Mg Tab.er.24h 750 Mg PO DAILYWBKFT Benicar (Olmesartan Medoxomil) 40 Mg Tablet 40 Mg PO DAILY Hydrochlorothiazide Tablet (Hydrochlorothiazide) 50 Mg Tablet 25 Mg PO DAILY Norvasc (Amlodipine Besylate) 10 Mg Tablet 10 Mg PO DAILY Allergies Allergies: Coded Allergies: No Known Drug Allergies (Unverified , 09/08/16) ROS Review of System Review of Systems: Review of Systems: General: Denies fever, chills, sweats, fatigue Eyes: Denies drainage, blurred vision, eye redness HENT: Denies rhinorrhea, sore throat, earache Respiratory: Denies cough, shortness of breath, wheezing Cardiac: Denies edema, palpitations, chest pain GI: Denies abdominal pain, Nausea, vomiting MSK: Denies back pain, neck pain c/o r ankle pain Skin: Denies rash, jaundice Neuro: Denies headache, dizziness 14 pt ros otherwise neg General: No: Chills, Night Sweats, Fatigue, Malaise, Appetite, Other Musculoskeletal: Yes Gait Disturbance, Yes Joint Pain Neurological: Yes Gait Disturbance Physical Exam Physical Exam General: Awake, alert, NAD. Well Nourished, well hydrated. Cooperative HEENT: Atraumatic, EOMI, PERRL, airway patent, moist oral mucosa Neck: Supple, trachea midline Respiratory: CTA bilaterally, normal effort, no wheezing/crackles CV: RRR, no murmur, cap refill <2 GI: Soft, nondistended, nontender, no masses MSK: Right ankle: Significant swelling in ankle and foot, 2+ DP pulse, intact sensation, normal distal capillary refill Skin: Warm, dry, abrasion to medial right ankle Neuro: A&O x3, speech NL, sensory and motor grossly intact, no focal deficits Psych: Normal affect, normal mood, General: Alert, Oriented X3, Cooperative HEENT: Atraumatic, PERRLA, EOMI, Mucous membr. moist/pink Lungs: Clear to auscultation, Normal air movement Heart: S1S2, RRR, no thrills, no gallops Breasts: Not examined Abdomen: Normal bowel sounds, Soft Rectal Exam: not examined Extremities: No cyanosis Neuro: Normal speech, Cranial nerves 3-12 NL Psych/Mental Status: Mental status NL, Mood NL Vitals Vitals Vital Signs Date Time Temp Pulse Resp B/P (MAP) Pulse Ox O2 Delivery O2 Flow Rate FiO2 03/18/20 09:05 17 Room Air 03/18/20 07:00 98.6 95 160/97 (118) 98 98.6 Labs Labs Laboratory Tests Test 03/17/20 22:45 03/18/20 01:30 White Blood Count 9.7 x10^3/uL (4.0-11.0) Red Blood Count 4.63 x10^6/uL (3.50-5.40) Hemoglobin 13.5 g/dL (12.0-15.5) Hematocrit 40.6 % (36.0-47.0) Mean Corpuscular Volume 88 fL (79-100) Mean Corpuscular Hemoglobin 29 pg (25-35) Mean Corpuscular Hemoglobin Concent 33 g/dL (31-37) Red Cell Distribution Width 15.4 % (11.5-14.5) Platelet Count 289 x10^3/uL (140-400) Neutrophils (%) (Auto) 72 % (31-73) Lymphocytes (%) (Auto) 19 % (24-48) Monocytes (%) (Auto) 6 % (0-9) Eosinophils (%) (Auto) 1 % (0-3) Basophils (%) (Auto) 1 % (0-3) Neutrophils # (Auto) 7.0 x10^3/uL (1.8-7.7) Lymphocytes # (Auto) 1.9 x10^3/uL (1.0-4.8) Monocytes # (Auto) 0.6 x10^3/uL (0.0-1.1) Eosinophils # (Auto) 0.1 x10^3/uL (0.0-0.7) Basophils # (Auto) 0.1 x10^3/uL (0.0-0.2) Sodium Level 140 mmol/L (136-145) Potassium Level 3.0 mmol/L (3.5-5.1) Chloride Level 104 mmol/L (98-107) Carbon Dioxide Level 25 mmol/L (21-32) Anion Gap 11 (6-14) Blood Urea Nitrogen 10 mg/dL (7-20) Creatinine 0.8 mg/dL (0.6-1.0) Estimated GFR (Cockcroft-Gault) 86.8 Glucose Level 117 mg/dL (70-99) Calcium Level 9.1 mg/dL (8.5-10.1) SARS-CoV-2 Antigen (Rapid) Negative (NEGATIVE) Laboratory Tests Test 03/17/20 22:45 03/18/20 01:30 White Blood Count 9.7 x10^3/uL (4.0-11.0) Red Blood Count 4.63 x10^6/uL (3.50-5.40) Hemoglobin 13.5 g/dL (12.0-15.5) Hematocrit 40.6 % (36.0-47.0) Mean Corpuscular Volume 88 fL (79-100) Mean Corpuscular Hemoglobin 29 pg (25-35) Mean Corpuscular Hemoglobin Concent 33 g/dL (31-37) Red Cell Distribution Width 15.4 % (11.5-14.5) Platelet Count 289 x10^3/uL (140-400) Neutrophils (%) (Auto) 72 % (31-73) Lymphocytes (%) (Auto) 19 % (24-48) Monocytes (%) (Auto) 6 % (0-9) Eosinophils (%) (Auto) 1 % (0-3) Basophils (%) (Auto) 1 % (0-3) Neutrophils # (Auto) 7.0 x10^3/uL (1.8-7.7) Lymphocytes # (Auto) 1.9 x10^3/uL (1.0-4.8) Monocytes # (Auto) 0.6 x10^3/uL (0.0-1.1) Eosinophils # (Auto) 0.1 x10^3/uL (0.0-0.7) Basophils # (Auto) 0.1 x10^3/uL (0.0-0.2) Sodium Level 140 mmol/L (136-145) Potassium Level 3.0 mmol/L (3.5-5.1) Chloride Level 104 mmol/L (98-107) Carbon Dioxide Level 25 mmol/L (21-32) Anion Gap 11 (6-14) Blood Urea Nitrogen 10 mg/dL (7-20) Creatinine 0.8 mg/dL (0.6-1.0) Estimated GFR (Cockcroft-Gault) 86.8 Glucose Level 117 mg/dL (70-99) Calcium Level 9.1 mg/dL (8.5-10.1) SARS-CoV-2 Antigen (Rapid) Negative (NEGATIVE) Images Images Tricuspid Valve TR P. Velocity 265cm/s RAP ESTIMATE 3mmHg TR Peak Gr. 28mmHg RVSP 31mmHg LEFT VENTRICLE The left ventricle is normal size. Sigmoid septum. There is mild septal hypertrophy. The left ventricular systolic function is normal. The ejection fraction is estimated at 55-60%. There is normal LV segmental wall motion. Transmitral Doppler flow pattern is Grade I-abnormal relaxation pattern. RIGHT VENTRICLE The right ventricle is normal size. The right ventricular systolic function is normal. ATRIA The left atrium size is normal. The right atrium size is normal. The interatrial septum is intact with no evidence for an atrial septal defect or patent foramen ovale as noted on 2-D or Doppler imaging. AORTIC VALVE The aortic valve is normal in structure and function. Doppler and Color Flow revealed no significant aortic regurgitation. There is no significant aortic valvular stenosis. MITRAL VALVE The mitral valve is thickened but opens well. There is no evidence of mitral valve prolapse. There is no mitral valve stenosis. Doppler and Color-flow revealed trace mitral regurgitation. TRICUSPID VALVE The tricuspid valve leaflets are thickened , but open well. Doppler and Color Flow revealed mild to moderate tricuspid regurgitation. There is no tricuspid valve stenosis. PULMONIC VALVE Doppler and Color Flow revealed mild pulmonic valvular regurgitation. GREAT VESSELS The aortic root is normal in size. The ascending aorta is normal in size. The IVC is normal in size and collapses >50% with inspiration. PERICARDIAL EFFUSION There is no pleural effusion. There is no evidence of significant pericardial effusion. Critical Notification Critical Value: No <Conclusion> The left ventricular systolic function is normal. The ejection fraction is estimated at 55-60%. There is normal LV segmental wall motion. Transmitral Doppler flow pattern is Grade I-abnormal relaxation pattern. Trace mitral regurgitation. Mild to moderate tricuspid regurgitation. There is no evidence of significant pericardial effusion. 3 views the right ankle dated 03/17/2020. No comparison available. Clinical data indication: Pain after injury. FINDINGS: 3 views the right ankle show an oblique comminuted fractures of the distal one third fibular shaft, mildly displaced. There is also mildly displaced fracture of the medial malleolus, extending transverse at the malleoli are base. A nondisplaced fracture through the posterior malleolus seen on the lateral view. Diffuse soft tissue swelling. Small plantar spur. There is an ankle joint effusion. IMPRESSION: Trimalleolar fracture as described above. Electronically signed by: Starla Aguirre MD (03/17/2020 9:52 PM) [facility] DICTATED and SIGNED BY: STARLA AGUIRRE MD DATE: 03/17/202151 VTE Prophylaxis Ordered VTE Prophylaxis Devices: No VTE Pharmacological Prophylaxi: Yes Assessment/Plan Assessment/Plan IMPRESSION: Trimalleolar fracture OF right ankle, ACUTE MECHANICAL FALL MORBID OBESITY Mild to moderate tricuspid regurgitation. hypertension Diabetes hypokalemia, on replacement plan ADMIT ORTHO CONSULT IV PAIN CONTROL NPO COVID SCREEN home meds accuchecks replace k D/W RN Justifications for Admission Other Justification KIRK GAMBINO MD Mar 18, 2020 09:37
[2020-03-18] MEDS ORDERED: LORazepam 0.5 MG TABLET PO PRN (10:00)
[2020-03-18] MEDS: hydroCHLOROthiazide 25 MG TABLET PO SCH (10:00)
[2020-03-18] MEDS ORDERED: SODIUM PHOSPHATES 19/7GM 133 ML ENEMA. PR PRN (10:00)
[2020-03-18] MEDS ORDERED: HYDROmorphone 2 MG/ML VIAL IV PRN (10:00)
[2020-03-18] MEDS: ENOXAPARIN 40 MG/0.4 ML SYRINGE. SQ SCH (10:00)
[2020-03-18] MEDS ORDERED: ACETAMINOPHEN 325 MG TABLET. PO PRN (10:00)
[2020-03-18] MEDS ORDERED: POTASSIUM CHLORIDE 20 MEQ TABLET.ER. PO ONE (10:00)
[2020-03-18] MEDS: LINAGLIPTIN 5 MG TABLET PO SCH (10:00)
[2020-03-18] MEDS ORDERED: ALBUTEROL SULFATE 2.5 MG/3 ML NEBU. NEB PRN (10:00)
[2020-03-18] MEDS ORDERED: guaiFENesin ORAL 200 MG/10 ML LIQUID. PO PRN (10:00)
[2020-03-18] MEDS ORDERED: 0.9 % SODIUM CHLORIDE 10 ML DISP.SYRIN. IV PRN (10:00)
[2020-03-18] MEDS ORDERED: MAG HYDROX/ALUMINUM HYD/SIMETH 30 ML ORAL.SUSP PO PRN (10:00)
[2020-03-18] MEDS ORDERED: DEXTROSE 50% 25 GM / 50ML DISP.SYRIN. IV PRN (10:00)
[2020-03-18] MEDS: LOSARTAN POTASSIUM 50 MG TABLET. PO SCH (10:00)
[2020-03-18] MEDS ORDERED: ONDANSETRON PF 4 MG/2 ML VIAL. IV PRN (10:00)
[2020-03-18] MEDS ORDERED: DOCUSATE SODIUM 100 MG CAPSULE. PO PRN (10:00)
[2020-03-18] MEDS: amLODIPine BESYLATE 10 MG TABLET PO SCH (10:00)
[2020-03-18 11:00] VITALS: BP 174/79
[2020-03-18 11:14] LABS: PROTHROMBIN TIME PATIENT 12.6 SEC (11.7-14.0)
[2020-03-18] MEDS: INSULIN LISPRO 300 UNITS/3 ML VIAL. SQ SCH ×2 (12:00→17:00)
--- NOTE | 2020-03-18 12:18 | NUR ---
SS following for discharge planning. SS reviewed pt chart and discussed with pt RN. Pt is from home with spouse and is currently on room air. Pt has ankle fracture. Ortho consulted. SS will continue to follow for discharge planning.
--- NOTE | 2020-03-18 14:00 | RAD ---
EXAM: CHEST AP ONLY 03/18/2020 9:52 AM CLINICAL INDICATION: Preop COMPARISON: None TECHNIQUE: AP upright view of the chest FINDINGS: The heart and mediastinum are normal. Lungs are well-expanded and clear. No consolidation, pleural effusion, or pneumothorax. Pulmonary vascularity is normal. The thoracic skeleton is intact. IMPRESSION: Normal chest radiograph. Electronically signed by: Shanti Valdez MD (03/18/2020 1:57 PM) [id number]
[2020-03-18 15:00] VITALS: BP 171/105
[2020-03-18] MEDS: METOPROLOL TARTRATE 5 MG/5 ML VIAL. IVP PRN (16:53)
[2020-03-18 19:15] VITALS: BP 159/76
[2020-03-18 22:49] VITALS: BP 177/88
[2020-03-19] MEDS: fentaNYL PF VIAL 100 MCG/2 ML VIAL IVP PRN ×2 (01:21→05:58)
[2020-03-19] MEDS: METOPROLOL TARTRATE 5 MG/5 ML VIAL. IVP PRN (01:21)
[2020-03-19 03:15] VITALS: BP 148/80
[2020-03-19 05:55] LABS: BASO % 1 % (0-3); EOS # 0.1 x10^3/uL (0.0-0.7); EOS % 2 % (0-3); HEMATOCRIT 40.6 % (36.0-47.0); HEMOGLOBIN 13.4 g/dL (12.0-15.5); LYMPH # 2.1 x10^3/uL (1.0-4.8); LYMPH % 33 % (24-48); MEAN CORPUSCULAR HEMOGLOBIN 29 pg (25-35); MEAN CORPUSCULAR HGB CONC 33 g/dL (31-37); MEAN CORPUSCULAR VOLUME 89 fL (79-100); MONO # 0.6 x10^3/uL (0.0-1.1); MONO % 9 % (0-9); NEUT # 3.6 x10^3/uL (1.8-7.7); NEUT % 56 % (31-73); PLATELET COUNT 269 x10^3/uL (140-400); RED BLOOD COUNT 4.58 x10^6/uL (3.50-5.40); RED CELL DISTRIBUTION WIDTH 15.3 % (11.5-14.5); WHITE BLOOD COUNT 6.5 x10^3/uL (4.0-11.0)
[2020-03-19] MEDS: IV NORMAL SALINE 1000ML BAG 1,000 ML IV SCH ×2 (05:57→15:17)
[2020-03-19 06:11] LABS: CALCIUM 8.7 mg/dL (8.5-10.1); CREATININE 0.7 mg/dL (0.6-1.0); GFR 101.3; POTASSIUM 3.3 mmol/L (3.5-5.1)
[2020-03-19 07:00] VITALS: BP 172/94
[2020-03-19] MEDS: INSULIN LISPRO 300 UNITS/3 ML VIAL. SQ SCH ×3 (08:00→17:00)
[2020-03-19] MEDS ORDERED: BUPIVACAINE-EPI 0.25%-1:200000 MPF 30 ML VIAL. INJ ONE (08:00)
[2020-03-19] MEDS: POTASSIUM CHLORIDE 20 MEQ TABLET.ER. PO SCH (08:23)
[2020-03-19] MEDS: LOSARTAN POTASSIUM 50 MG TABLET. PO SCH (08:24)
[2020-03-19] MEDS: amLODIPine BESYLATE 10 MG TABLET PO SCH (08:24)
[2020-03-19] MEDS: HYDROmorphone 2 MG/ML VIAL IVP PRN (08:26)
--- NOTE | 2020-03-19 08:58 | PDOC2 ---
CONSULT Date of Consult Date of Consult DATE: 03/19/20 TIME: 08:47 Consult was entered into computer at 1337 on 03/18/20. I made rounds earlier in the day on 03/18/20 and this patient was not listed on my rounds sheet. I was notified yesterday about 3:00 p.m. that the patient was waiting to have surgery. Reason for Consult Reason for Consult: ankle fracture Referring Physician Referring Physician: Armando Culp Identification/Chief Complaint Chief Complaint Right ankle fracture Source Source: Chart review, Patient History of Present Illness Reason for Visit: This 64-year-old woman was fishing on Monday night at [facility] in [facility], when she slipped on the [place] bank and twisted her ankle. She was admitted through the emergency room. She says there was an abrasion but otherwise this was a closed injury. She has been in a splint. Prior to the injury she walks without a cane or a walker. 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 She lives at home with her and son and occasionally other family. Her son has diabetes and vision difficulties and she is helping to care for her son who had a detached retina and is now having vision difficulties in the other eye related to the diabetes. Past Medical History Past Medical History She has had type 2 diabetes for about 20 years but takes good care of herself. She is on metformin and Januvia. She said her last hemoglobin A1c was in the 6 range. Cardiovascular: HTN Heme/Onc: No pertinent hx Endocrine: Diabetes Family History Family History: Hypertension Social History No ALCOHOL: none Drugs: None Lives: with Family Current Problem List Problem List Problems Medical Problems: (1) Trimalleolar fracture of ankle, closed Status: Acute Current Medications Current Medications Current Medications Morphine Sulfate (Morphine Sulfate) 5 mg 1X ONCE IV Last administered on 03/17/20at 22:58; Start 03/17/20 at 22:15; Stop 03/17/20 at 22:16; Status DC Hydromorphone HCl (Dilaudid) 1 mg PRN Q4HRS PRN IVP SEVERE PAIN 7-10; Start 03/18/20 at 00:45; Stop 03/18/20 at 00:42; Status DC Hydromorphone HCl (Dilaudid) 1 mg PRN Q6HRS PRN IVP SEVERE PAIN 7-10 Last administered on 03/19/20at 08:26; Start 03/18/20 at 00:45 Sodium Chloride 1,000 ml @ 100 mls/hr Q10H IV Last administered on 03/18/20at 09:04; Start 03/18/20 at 01:00; Stop 03/18/20 at 09:56; Status DC Fentanyl Citrate (Fentanyl 2ml Vial) 50 mcg PRN Q3HRS PRN IVP PAIN Last administered on 03/19/20at 05:58; Start 03/18/20 at 04:15 Amlodipine Besylate (Norvasc) 10 mg DAILY PO Last administered on 03/19/20at 08:24; Start 03/18/20 at 10:00 Amlodipine Besylate (Norvasc) 10 mg DAILY PO ; Start 03/19/20 at 09:00; Status UNV Hydrochlorothiazide (Hydrodiuril) 25 mg DAILY PO ; Start 03/18/20 at 10:00 Non-Formulary Medication (Hydrochlorothiazide (Hydrochlorothiazide Tablet)) 25 mg DAILY PO ; Start 03/19/20 at 09:00; Status UNV Losartan Potassium (Cozaar) 100 mg DAILY PO Last administered on 03/19/20at 08:24; Start 03/18/20 at 10:00 Non-Formulary Medication (Olmesartan Medoxomil (Benicar)) 40 mg DAILY PO ; Start 03/19/20 at 09:00; Status UNV Linagliptin (Tradjenta) 5 mg DAILY PO ; Start 03/18/20 at 10:00 Potassium Chloride (Klor-Con) 40 meq 1X ONCE PO Last administered on 03/18/20at 14:01; Start 03/18/20 at 10:00; Stop 03/18/20 at 10:01; Status DC Potassium Chloride (Klor-Con) 20 meq DAILYWBKFT PO Last administered on 03/19/20at 08:23; Start 03/19/20 at 08:00 Sodium Chloride (Normal Saline Flush) 3 ml QSHIFT PRN IV AFTER MEDS AND BLOOD DRAWS; Start 03/18/20 at 10:00 Sodium Chloride 1,000 ml @ 100 mls/hr Q10H IV Last administered on 03/19/20at 05:57; Start 03/18/20 at 09:47 Ondansetron HCl (Zofran) 4 mg PRN Q4HRS PRN IV NAUSEA/VOMITING; Start 03/18/20 at 10:00 Acetaminophen (Tylenol) 650 mg PRN Q4HRS PRN PO TEMP OVER 100.4F; Start 03/18/20 at 10:00 Al Hydroxide/Mg Hydroxide (Mylanta Plus Xs) 30 ml PRN DAILY PRN PO HEARTBURN / GAS; Start 03/18/20 at 10:00 Sodium Monofluorophosphate (Fleet Adult) 133 ml PRN DAILY PRN ND CONSTIPATION; Start 03/18/20 at 10:00 Docusate Sodium (Colace) 100 mg PRN BID PRN PO HARD STOOLS; Start 03/18/20 at 10:00 Albuterol Sulfate (Ventolin Neb Soln) 2.5 mg PRN Q4HRS PRN NEB SHORTNESS OF BREATH; Start 03/18/20 at 10:00 Guaifenesin (Robitussin) 200 mg PRN Q4HRS PRN PO COUGH; Start 03/18/20 at 10:00 Lorazepam (Ativan) 0.5 mg PRN Q4HRS PRN PO ANXIETY / AGITATION; Start 03/18/20 at 10:00 Hydromorphone HCl (Dilaudid) 0.6 mg PRN Q2HRS PRN IV PAIN MODERATE; Start 03/18/20 at 10:00 Enoxaparin Sodium (Lovenox 40mg Syringe) 40 mg Q24H SQ ; Start 03/18/20 at 10:00 Insulin Human Lispro (HumaLOG) 0-5 UNITS TIDWMEALS SQ ; Start 03/18/20 at 12:00 Dextrose (Dextrose 50%-Water Syringe) 12.5 gm PRN Q15MIN PRN IV SEE COMMENTS; Start 03/18/20 at 10:00 Metoprolol Tartrate (Lopressor Vial) 5 mg PRN Q6HRS PRN IVP ELEVATED BP, SEE COMMENTS Last administered on 03/19/20at 01:21; Start 03/18/20 at 10:00 Bupivacaine HCl/ Epinephrine Bitart (Sensorcaine-Epi 0.25%-1:[id number] Mpf) 30 ml 1X ONCE INJ ; Start 03/19/20 at 08:00; Stop 03/19/20 at 08:01; Status DC Active Scripts Active Hydrocodone-Apap 5-325 (Hydrocodone Bit/Acetaminophen) 1 Tab Tablet 1 Tab PO PRN Q8HRS PRN Reported Hydrochlorothiazide 25 Mg Tablet 1 Tab PO DAILY Januvia (Sitagliptin Phosphate) 100 Mg Tablet 1 Tab PO DAILY Losartan Potassium 100 Mg Tablet 1 Tab PO DAILY Amlodipine Besylate 10 Mg Tablet 1 Tab PO DAILY Metformin Hcl Er (Metformin Hcl) 750 Mg Tab.er.24h 750 Mg PO DAILYWBKFT Benicar (Olmesartan Medoxomil) 40 Mg Tablet 40 Mg PO DAILY Hydrochlorothiazide Tablet (Hydrochlorothiazide) 50 Mg Tablet 25 Mg PO DAILY Norvasc (Amlodipine Besylate) 10 Mg Tablet 10 Mg PO DAILY Allergies Allergies: Coded Allergies: No Known Drug Allergies (Unverified , 09/08/16) ROS Review of System We discussed diabetic neuropathy findings in detail. She has occasional tingling or numbness but no persistent symptoms and she does not believe there is any significant neuropathy sensation loss. General: Denies fever, chills, sweats, fatigue Eyes: Denies drainage, blurred vision, eye redness HENT: Denies rhinorrhea, sore throat, earache Respiratory: Denies cough, shortness of breath, wheezing Cardiac: Denies edema, palpitations, chest pain GI: Denies abdominal pain, Nausea, vomiting MSK: Denies back pain, neck pain Skin: Denies rash, jaundice Neuro: Denies headache, dizziness Psychiatric: Denies SI/HI Physical Exam General: Alert, Cooperative HEENT: Atraumatic Lungs: Normal air movement Heart: Regular rate Abdomen: Soft Extremities: Other (Patient is unable to weight bear on the right ankle. The overall alignment is swollen and slightly grossly enlarged at the joint with a splint intact. There is focal tenderness of the distal fibula at the fracture site. There is tenderness at the medial malleolus and at the syndesmosis ligaments. Motor strength is decreased mobility due to pain with no focal neurologic deficit. She has the ability to dorsiflex and plantarflex the big toe and lesser toes, and intact sensation and capillary refill. I do not detect any diabetic neuropathy with light touch sensation examination of both feet.) Neuro: Normal speech, Normal tone, Sensation intact MUSCULOSKELETAL: Abnormal exam of right (ankle as above) Vitals VITALS Vital Signs Date Time Temp Pulse Resp B/P (MAP) Pulse Ox O2 Delivery O2 Flow Rate FiO2 03/19/20 08:26 18 Room Air 03/19/20 08:24 89 172/94 03/19/20 07:00 98.3 100 98.3 Labs Labs Laboratory Tests Test 03/17/20 22:45 03/18/20 01:30 03/18/20 10:50 03/18/20 11:50 White Blood Count 9.7 x10^3/uL (4.0-11.0) Red Blood Count 4.63 x10^6/uL (3.50-5.40) Hemoglobin 13.5 g/dL (12.0-15.5) Hematocrit 40.6 % (36.0-47.0) Mean Corpuscular Volume 88 fL (79-100) Mean Corpuscular Hemoglobin 29 pg (25-35) Mean Corpuscular Hemoglobin Concent 33 g/dL (31-37) Red Cell Distribution Width 15.4 % (11.5-14.5) Platelet Count 289 x10^3/uL (140-400) Neutrophils (%) (Auto) 72 % (31-73) Lymphocytes (%) (Auto) 19 % (24-48) Monocytes (%) (Auto) 6 % (0-9) Eosinophils (%) (Auto) 1 % (0-3) Basophils (%) (Auto) 1 % (0-3) Neutrophils # (Auto) 7.0 x10^3/uL (1.8-7.7) Lymphocytes # (Auto) 1.9 x10^3/uL (1.0-4.8) Monocytes # (Auto) 0.6 x10^3/uL (0.0-1.1) Eosinophils # (Auto) 0.1 x10^3/uL (0.0-0.7) Basophils # (Auto) 0.1 x10^3/uL (0.0-0.2) Sodium Level 140 mmol/L (136-145) Potassium Level 3.0 mmol/L (3.5-5.1) Chloride Level 104 mmol/L (98-107) Carbon Dioxide Level 25 mmol/L (21-32) Anion Gap 11 (6-14) Blood Urea Nitrogen 10 mg/dL (7-20) Creatinine 0.8 mg/dL (0.6-1.0) Estimated GFR (Cockcroft-Gault) 86.8 Glucose Level 117 mg/dL (70-99) Calcium Level 9.1 mg/dL (8.5-10.1) SARS-CoV-2 Antigen (Rapid) Negative (NEGATIVE) Prothrombin Time 12.6 SEC (11.7-14.0) Prothromb Time International Ratio 1.0 (0.8-1.1) Glucose (Fingerstick) 102 mg/dL (70-99) Test 03/18/20 17:07 03/19/20 04:40 03/19/20 07:49 Glucose (Fingerstick) 92 mg/dL (70-99) 105 mg/dL (70-99) White Blood Count 6.5 x10^3/uL (4.0-11.0) Red Blood Count 4.58 x10^6/uL (3.50-5.40) Hemoglobin 13.4 g/dL (12.0-15.5) Hematocrit 40.6 % (36.0-47.0) Mean Corpuscular Volume 89 fL (79-100) Mean Corpuscular Hemoglobin 29 pg (25-35) Mean Corpuscular Hemoglobin Concent 33 g/dL (31-37) Red Cell Distribution Width 15.3 % (11.5-14.5) Platelet Count 269 x10^3/uL (140-400) Neutrophils (%) (Auto) 56 % (31-73) Lymphocytes (%) (Auto) 33 % (24-48) Monocytes (%) (Auto) 9 % (0-9) Eosinophils (%) (Auto) 2 % (0-3) Basophils (%) (Auto) 1 % (0-3) Neutrophils # (Auto) 3.6 x10^3/uL (1.8-7.7) Lymphocytes # (Auto) 2.1 x10^3/uL (1.0-4.8) Monocytes # (Auto) 0.6 x10^3/uL (0.0-1.1) Eosinophils # (Auto) 0.1 x10^3/uL (0.0-0.7) Basophils # (Auto) 0.0 x10^3/uL (0.0-0.2) Sodium Level 138 mmol/L (136-145) Potassium Level 3.3 mmol/L (3.5-5.1) Chloride Level 105 mmol/L (98-107) Carbon Dioxide Level 25 mmol/L (21-32) Anion Gap 8 (6-14) Blood Urea Nitrogen 9 mg/dL (7-20) Creatinine 0.7 mg/dL (0.6-1.0) Estimated GFR (Cockcroft-Gault) 101.3 Glucose Level 104 mg/dL (70-99) Calcium Level 8.7 mg/dL (8.5-10.1) Laboratory Tests Test 03/18/20 10:50 03/18/20 11:50 03/18/20 17:07 03/19/20 04:40 Prothrombin Time 12.6 SEC (11.7-14.0) Prothromb Time International Ratio 1.0 (0.8-1.1) Glucose (Fingerstick) 102 mg/dL (70-99) 92 mg/dL (70-99) White Blood Count 6.5 x10^3/uL (4.0-11.0) Red Blood Count 4.58 x10^6/uL (3.50-5.40) Hemoglobin 13.4 g/dL (12.0-15.5) Hematocrit 40.6 % (36.0-47.0) Mean Corpuscular Volume 89 fL (79-100) Mean Corpuscular Hemoglobin 29 pg (25-35) Mean Corpuscular Hemoglobin Concent 33 g/dL (31-37) Red Cell Distribution Width 15.3 % (11.5-14.5) Platelet Count 269 x10^3/uL (140-400) Neutrophils (%) (Auto) 56 % (31-73) Lymphocytes (%) (Auto) 33 % (24-48) Monocytes (%) (Auto) 9 % (0-9) Eosinophils (%) (Auto) 2 % (0-3) Basophils (%) (Auto) 1 % (0-3) Neutrophils # (Auto) 3.6 x10^3/uL (1.8-7.7) Lymphocytes # (Auto) 2.1 x10^3/uL (1.0-4.8) Monocytes # (Auto) 0.6 x10^3/uL (0.0-1.1) Eosinophils # (Auto) 0.1 x10^3/uL (0.0-0.7) Basophils # (Auto) 0.0 x10^3/uL (0.0-0.2) Sodium Level 138 mmol/L (136-145) Potassium Level 3.3 mmol/L (3.5-5.1) Chloride Level 105 mmol/L (98-107) Carbon Dioxide Level 25 mmol/L (21-32) Anion Gap 8 (6-14) Blood Urea Nitrogen 9 mg/dL (7-20) Creatinine 0.7 mg/dL (0.6-1.0) Estimated GFR (Cockcroft-Gault) 101.3 Glucose Level 104 mg/dL (70-99) Calcium Level 8.7 mg/dL (8.5-10.1) Test 03/19/20 07:49 Glucose (Fingerstick) 105 mg/dL (70-99) Images Images [facility] [address] [place], [place] [id number] IMAGING REPORT Signed PATIENT: ESPERANZA HINSON ACCOUNT: [id number] : 1955 LOCATION: ER AGE: 64 SEX: F EXAM STATUS: REG ER ORD. PHYSICIAN: ELISABET IVAN MD REASON: FALL WITH ANKLE PAIN PROCEDURE: ANKLE RIGHT 3V 3 views the right ankle dated 03/17/2020. No comparison available. Clinical data indication: Pain after injury. FINDINGS: 3 views the right ankle show an oblique comminuted fractures of the distal one third fibular shaft, mildly displaced. There is also mildly displaced fracture of the medial malleolus, extending transverse at the malleoli are base. A nondisplaced fracture through the posterior malleolus seen on the lateral view. Diffuse soft tissue swelling. Small plantar spur. There is an ankle joint effusion. IMPRESSION: Trimalleolar fracture as described above. Electronically signed by: Enrique Aguirre MD (03/17/2020 9:52 PM) [facility] [place] and SIGNED BY: ENRIQUE AGUIRRE MD DATE: 03/17/20 183 Assessment/Plan Assessment/Plan Plan for surgery today 03/19/2020 I discussed the trimalleolar ankle fracture injury with her, and there is possibly a syndesmosis injury. I discussed internal fixation of the medial lateral malleolus, possible syndesmosis fixation, and doubtful posterior malleolus fixation. We discussed the risks benefits and alternatives of ankle fracture surgery. We discussed the potential risks of infection, neurovascular injury, bleeding, scarring, blood clots, hardware failure, need for hardware removal, malunion or nonunion, or other potential surgical or anesthetic complications. We discussed that if syndesmosis screws are placed today will require removal in about 3 months. The other hardware could be left for a year and decision made at a later date whether that should be removed or not. All of her questions about surgery were answered and she desires to proceed. JAMMIE OH MD Mar 19, 2020 08:58
[2020-03-19] MEDS ORDERED: NON FORMULARY ITEM (Hydrochlorothiazide (Hydrochlorothiazide Tablet) 25 MG) PO SCH (09:00)
[2020-03-19] MEDS ORDERED: amLODIPine BESYLATE 10 MG TABLET PO SCH (09:00)
[2020-03-19] MEDS ORDERED: OLMESARTAN MEDOXOMIL 40 MG PO SCH (09:00)
--- NOTE | 2020-03-19 09:39 | PDOC ---
PROGRESS NOTES Date of Service: DATE: 03/19/20 TIME: 09:38 Chief Complaint Chief Complaint VTE Prophylaxis Ordered VTE Prophylaxis Devices: No VTE Pharmacological Prophylaxi: Yes Assessment/Plan Assessment/Plan IMPRESSION: Trimalleolar fracture OF right ankle, ACUTE MECHANICAL FALL MORBID OBESITY Mild to moderate tricuspid regurgitation. hypertension Diabetes hypokalemia, on replacement plan ADMIT ORTHO CONSULT IV PAIN CONTROL NPO COVID SCREEN home meds accuchecks replace k D/W RN History of Present Illness History of Present Illness Identification/Chief Complaint Chief Complaint SEEN IN er after fall, twisting of right ankle 64-year-old female , complaining of severe right ankle pain. Patient fell twisting her ankle sideways. xray c/w trimalleolar fracture, FELL AT THE WHYTE DENIES CHEST PAIN Was wearing tennis shoes, slipped Past Medical History Past Medical History Past Medical History Past Medical History: Diabetes-Type II, Hypertension, Kidney Stone, Other Additional Past Medical Histor: BENIGN TUMORS IN UTERUS Past Surgical History: Other Additional Past Surgical Histo: BIOPSIES BREAST,LITHOTRIPSY Smoking Status: Never Smoker Alcohol Use: None Drug Use: None FHX OBESITY, HTN Cardiovascular: HTN Heme/Onc: No pertinent hx Family History Family History: Hypertension Social History Smoke: No ALCOHOL: none Drugs: None Current Problem List Problem List Problems Medical Problems: (1) Trimalleolar fracture of ankle, closed Status: Acute Vitals Vitals Vital Signs Date Time Temp Pulse Resp B/P (MAP) Pulse Ox O2 Delivery O2 Flow Rate FiO2 03/19/20 08:26 18 Room Air 03/19/20 08:24 89 172/94 03/19/20 07:00 98.3 100 98.3 Physical Exam General: Alert, Oriented X3, Cooperative, mild distress Heart: Regular rate Lungs: Clear Abdomen: Normal bowel sounds, Soft Extremities: No cyanosis Labs LABS Laboratory Tests Test 03/18/20 10:50 03/18/20 11:50 03/18/20 17:07 03/19/20 04:40 Prothrombin Time 12.6 SEC (11.7-14.0) Prothromb Time International Ratio 1.0 (0.8-1.1) Glucose (Fingerstick) 102 mg/dL (70-99) 92 mg/dL (70-99) White Blood Count 6.5 x10^3/uL (4.0-11.0) Red Blood Count 4.58 x10^6/uL (3.50-5.40) Hemoglobin 13.4 g/dL (12.0-15.5) Hematocrit 40.6 % (36.0-47.0) Mean Corpuscular Volume 89 fL (79-100) Mean Corpuscular Hemoglobin 29 pg (25-35) Mean Corpuscular Hemoglobin Concent 33 g/dL (31-37) Red Cell Distribution Width 15.3 % (11.5-14.5) Platelet Count 269 x10^3/uL (140-400) Neutrophils (%) (Auto) 56 % (31-73) Lymphocytes (%) (Auto) 33 % (24-48) Monocytes (%) (Auto) 9 % (0-9) Eosinophils (%) (Auto) 2 % (0-3) Basophils (%) (Auto) 1 % (0-3) Neutrophils # (Auto) 3.6 x10^3/uL (1.8-7.7) Lymphocytes # (Auto) 2.1 x10^3/uL (1.0-4.8) Monocytes # (Auto) 0.6 x10^3/uL (0.0-1.1) Eosinophils # (Auto) 0.1 x10^3/uL (0.0-0.7) Basophils # (Auto) 0.0 x10^3/uL (0.0-0.2) Sodium Level 138 mmol/L (136-145) Potassium Level 3.3 mmol/L (3.5-5.1) Chloride Level 105 mmol/L (98-107) Carbon Dioxide Level 25 mmol/L (21-32) Anion Gap 8 (6-14) Blood Urea Nitrogen 9 mg/dL (7-20) Creatinine 0.7 mg/dL (0.6-1.0) Estimated GFR (Cockcroft-Gault) 101.3 Glucose Level 104 mg/dL (70-99) Calcium Level 8.7 mg/dL (8.5-10.1) Test 03/19/20 07:49 Glucose (Fingerstick) 105 mg/dL (70-99) Assessment and Plan Assessmemt and Plan Problems Medical Problems: (1) Trimalleolar fracture of ankle, closed Status: Acute Comment Review of Relevant I have reviewed the following items oracio (where applicable) has been applied. Labs Laboratory Tests Test 03/17/20 22:45 03/18/20 01:30 03/18/20 10:50 03/18/20 11:50 White Blood Count 9.7 x10^3/uL (4.0-11.0) Red Blood Count 4.63 x10^6/uL (3.50-5.40) Hemoglobin 13.5 g/dL (12.0-15.5) Hematocrit 40.6 % (36.0-47.0) Mean Corpuscular Volume 88 fL (79-100) Mean Corpuscular Hemoglobin 29 pg (25-35) Mean Corpuscular Hemoglobin Concent 33 g/dL (31-37) Red Cell Distribution Width 15.4 % (11.5-14.5) Platelet Count 289 x10^3/uL (140-400) Neutrophils (%) (Auto) 72 % (31-73) Lymphocytes (%) (Auto) 19 % (24-48) Monocytes (%) (Auto) 6 % (0-9) Eosinophils (%) (Auto) 1 % (0-3) Basophils (%) (Auto) 1 % (0-3) Neutrophils # (Auto) 7.0 x10^3/uL (1.8-7.7) Lymphocytes # (Auto) 1.9 x10^3/uL (1.0-4.8) Monocytes # (Auto) 0.6 x10^3/uL (0.0-1.1) Eosinophils # (Auto) 0.1 x10^3/uL (0.0-0.7) Basophils # (Auto) 0.1 x10^3/uL (0.0-0.2) Sodium Level 140 mmol/L (136-145) Potassium Level 3.0 mmol/L (3.5-5.1) Chloride Level 104 mmol/L (98-107) Carbon Dioxide Level 25 mmol/L (21-32) Anion Gap 11 (6-14) Blood Urea Nitrogen 10 mg/dL (7-20) Creatinine 0.8 mg/dL (0.6-1.0) Estimated GFR (Cockcroft-Gault) 86.8 Glucose Level 117 mg/dL (70-99) Calcium Level 9.1 mg/dL (8.5-10.1) SARS-CoV-2 Antigen (Rapid) Negative (NEGATIVE) Prothrombin Time 12.6 SEC (11.7-14.0) Prothromb Time International Ratio 1.0 (0.8-1.1) Glucose (Fingerstick) 102 mg/dL (70-99) Test 03/18/20 17:07 03/19/20 04:40 03/19/20 07:49 Glucose (Fingerstick) 92 mg/dL (70-99) 105 mg/dL (70-99) White Blood Count 6.5 x10^3/uL (4.0-11.0) Red Blood Count 4.58 x10^6/uL (3.50-5.40) Hemoglobin 13.4 g/dL (12.0-15.5) Hematocrit 40.6 % (36.0-47.0) Mean Corpuscular Volume 89 fL (79-100) Mean Corpuscular Hemoglobin 29 pg (25-35) Mean Corpuscular Hemoglobin Concent 33 g/dL (31-37) Red Cell Distribution Width 15.3 % (11.5-14.5) Platelet Count 269 x10^3/uL (140-400) Neutrophils (%) (Auto) 56 % (31-73) Lymphocytes (%) (Auto) 33 % (24-48) Monocytes (%) (Auto) 9 % (0-9) Eosinophils (%) (Auto) 2 % (0-3) Basophils (%) (Auto) 1 % (0-3) Neutrophils # (Auto) 3.6 x10^3/uL (1.8-7.7) Lymphocytes # (Auto) 2.1 x10^3/uL (1.0-4.8) Monocytes # (Auto) 0.6 x10^3/uL (0.0-1.1) Eosinophils # (Auto) 0.1 x10^3/uL (0.0-0.7) Basophils # (Auto) 0.0 x10^3/uL (0.0-0.2) Sodium Level 138 mmol/L (136-145) Potassium Level 3.3 mmol/L (3.5-5.1) Chloride Level 105 mmol/L (98-107) Carbon Dioxide Level 25 mmol/L (21-32) Anion Gap 8 (6-14) Blood Urea Nitrogen 9 mg/dL (7-20) Creatinine 0.7 mg/dL (0.6-1.0) Estimated GFR (Cockcroft-Gault) 101.3 Glucose Level 104 mg/dL (70-99) Calcium Level 8.7 mg/dL (8.5-10.1) Laboratory Tests Test 03/18/20 10:50 03/18/20 11:50 03/18/20 17:07 03/19/20 04:40 Prothrombin Time 12.6 SEC (11.7-14.0) Prothromb Time International Ratio 1.0 (0.8-1.1) Glucose (Fingerstick) 102 mg/dL (70-99) 92 mg/dL (70-99) White Blood Count 6.5 x10^3/uL (4.0-11.0) Red Blood Count 4.58 x10^6/uL (3.50-5.40) Hemoglobin 13.4 g/dL (12.0-15.5) Hematocrit 40.6 % (36.0-47.0) Mean Corpuscular Volume 89 fL (79-100) Mean Corpuscular Hemoglobin 29 pg (25-35) Mean Corpuscular Hemoglobin Concent 33 g/dL (31-37) Red Cell Distribution Width 15.3 % (11.5-14.5) Platelet Count 269 x10^3/uL (140-400) Neutrophils (%) (Auto) 56 % (31-73) Lymphocytes (%) (Auto) 33 % (24-48) Monocytes (%) (Auto) 9 % (0-9) Eosinophils (%) (Auto) 2 % (0-3) Basophils (%) (Auto) 1 % (0-3) Neutrophils # (Auto) 3.6 x10^3/uL (1.8-7.7) Lymphocytes # (Auto) 2.1 x10^3/uL (1.0-4.8) Monocytes # (Auto) 0.6 x10^3/uL (0.0-1.1) Eosinophils # (Auto) 0.1 x10^3/uL (0.0-0.7) Basophils # (Auto) 0.0 x10^3/uL (0.0-0.2) Sodium Level 138 mmol/L (136-145) Potassium Level 3.3 mmol/L (3.5-5.1) Chloride Level 105 mmol/L (98-107) Carbon Dioxide Level 25 mmol/L (21-32) Anion Gap 8 (6-14) Blood Urea Nitrogen 9 mg/dL (7-20) Creatinine 0.7 mg/dL (0.6-1.0) Estimated GFR (Cockcroft-Gault) 101.3 Glucose Level 104 mg/dL (70-99) Calcium Level 8.7 mg/dL (8.5-10.1) Test 03/19/20 07:49 Glucose (Fingerstick) 105 mg/dL (70-99) Medications Current Medications Morphine Sulfate (Morphine Sulfate) 5 mg 1X ONCE IV Last administered on 03/17/20at 22:58; Start 03/17/20 at 22:15; Stop 03/17/20 at 22:16; Status DC Hydromorphone HCl (Dilaudid) 1 mg PRN Q4HRS PRN IVP SEVERE PAIN 7-10; Start 03/18/20 at 00:45; Stop 03/18/20 at 00:42; Status DC Hydromorphone HCl (Dilaudid) 1 mg PRN Q6HRS PRN IVP SEVERE PAIN 7-10 Last administered on 03/19/20at 08:26; Start 03/18/20 at 00:45; Stop 03/19/20 at 09:12; Status DC Sodium Chloride 1,000 ml @ 100 mls/hr Q10H IV Last administered on 03/18/20at 09:04; Start 03/18/20 at 01:00; Stop 03/18/20 at 09:56; Status DC Fentanyl Citrate (Fentanyl 2ml Vial) 50 mcg PRN Q3HRS PRN IVP SEVERE PAIN, 1ST CHOICE Last administered on 03/19/20at 05:58; Start 03/18/20 at 04:15 Amlodipine Besylate (Norvasc) 10 mg DAILY PO Last administered on 03/19/20at 08:24; Start 03/18/20 at 10:00 Amlodipine Besylate (Norvasc) 10 mg DAILY PO ; Start 03/19/20 at 09:00; Status UNV Hydrochlorothiazide (Hydrodiuril) 25 mg DAILY PO ; Start 03/18/20 at 10:00 Non-Formulary Medication (Hydrochlorothiazide (Hydrochlorothiazide Tablet)) 25 mg DAILY PO ; Start 03/19/20 at 09:00; Status UNV Losartan Potassium (Cozaar) 100 mg DAILY PO Last administered on 03/19/20at 0 8:24; Start 03/18/20 at 10:00 Non-Formulary Medication (Olmesartan Medoxomil (Benicar)) 40 mg DAILY PO ; Start 03/19/20 at 09:00; Status UNV Linagliptin (Tradjenta) 5 mg DAILY PO ; Start 03/18/20 at 10:00 Potassium Chloride (Klor-Con) 40 meq 1X ONCE PO Last administered on 03/18/20at 14:01; Start 03/18/20 at 10:00; Stop 03/18/20 at 10:01; Status DC Potassium Chloride (Klor-Con) 20 meq DAILYWBKFT PO Last administered on 03/19/20at 08:23; Start 03/19/20 at 08:00 Sodium Chloride (Normal Saline Flush) 3 ml QSHIFT PRN IV AFTER MEDS AND BLOOD DRAWS; Start 03/18/20 at 10:00 Sodium Chloride 1,000 ml @ 100 mls/hr Q10H IV Last administered on 03/19/20at 05:57; Start 03/18/20 at 09:47 Ondansetron HCl (Zofran) 4 mg PRN Q4HRS PRN IV NAUSEA/VOMITING; Start 03/18/20 at 10:00 Acetaminophen (Tylenol) 650 mg PRN Q4HRS PRN PO TEMP OVER 100.4F; Start 03/18/20 at 10:00 Al Hydroxide/Mg Hydroxide (Mylanta Plus Xs) 30 ml PRN DAILY PRN PO HEARTBURN / GAS; Start 03/18/20 at 10:00 Sodium Monofluorophosphate (Fleet Adult) 133 ml PRN DAILY PRN VT CONSTIPATION; Start 03/18/20 at 10:00 Docusate Sodium (Colace) 100 mg PRN BID PRN PO HARD STOOLS; Start 03/18/20 at 10:00 Albuterol Sulfate (Ventolin Neb Soln) 2.5 mg PRN Q4HRS PRN NEB SHORTNESS OF BREATH; Start 03/18/20 at 10:00 Guaifenesin (Robitussin) 200 mg PRN Q4HRS PRN PO COUGH; Start 03/18/20 at 10:00 Lorazepam (Ativan) 0.5 mg PRN Q4HRS PRN PO ANXIETY / AGITATION; Start 03/18/20 at 10:00 Hydromorphone HCl (Dilaudid) 0.6 mg PRN Q2HRS PRN IV PAIN MODERATE; Start 03/18/20 at 10:00 Enoxaparin Sodium (Lovenox 40mg Syringe) 40 mg Q24H SQ ; Start 03/18/20 at 10:00 Insulin Human Lispro (HumaLOG) 0-5 UNITS TIDWMEALS SQ ; Start 03/18/20 at 12:00 Dextrose (Dextrose 50%-Water Syringe) 12.5 gm PRN Q15MIN PRN IV SEE COMMENTS; Start 03/18/20 at 10:00 Metoprolol Tartrate (Lopressor Vial) 5 mg PRN Q6HRS PRN IVP ELEVATED BP, SEE COMMENTS Last administered on 03/19/20at 01:21; Start 03/18/20 at 10:00 Bupivacaine HCl/ Epinephrine Bitart (Sensorcaine-Epi 0.25%-1:770296 Mpf) 30 ml 1X ONCE INJ ; Start 03/19/20 at 08:00; Stop 03/19/20 at 08:01; Status DC Cefazolin Sodium/ Dextrose 50 ml @ 100 mls/hr 1X PREOP PRN IV SEE COMMENTS; Start 03/19/20 at 12:00 Active Scripts Active Hydrocodone-Apap 5-325 (Hydrocodone Bit/Acetaminophen) 1 Tab Tablet 1 Tab PO PRN Q8HRS PRN Reported Hydrochlorothiazide 25 Mg Tablet 1 Tab PO DAILY Januvia (Sitagliptin Phosphate) 100 Mg Tablet 1 Tab PO DAILY Losartan Potassium 100 Mg Tablet 1 Tab PO DAILY Amlodipine Besylate 10 Mg Tablet 1 Tab PO DAILY Metformin Hcl Er (Metformin Hcl) 750 Mg Tab.er.24h 750 Mg PO DAILYWBKFT Benicar (Olmesartan Medoxomil) 40 Mg Tablet 40 Mg PO DAILY Hydrochlorothiazide Tablet (Hydrochlorothiazide) 50 Mg Tablet 25 Mg PO DAILY Norvasc (Amlodipine Besylate) 10 Mg Tablet 10 Mg PO DAILY Vitals/I & O Vital Sign - Last 24 Hours 03/18/20 03/18/20 03/18/20 03/18/20 11:00 14:02 14:32 15:00 Temp 97.6 98.3 97.6 98.3 Pulse 85 85 Resp 20 16 16 20 B/P (MAP) 174/79 (110) 171/105 (127) Pulse Ox 97 97 O2 Delivery Room Air Room Air Room Air Room Air 03/18/20 03/18/20 03/18/20 03/18/20 16:53 18:01 18:31 19:15 Temp 99.4 99.4 Pulse 83 80 Resp 16 16 20 B/P (MAP) 176/91 159/76 (103) Pulse Ox 98 O2 Delivery Room Air Room Air Room Air 03/18/20 03/18/20 03/18/20 03/18/20 20:00 21:30 22:49 23:04 Temp 99.3 99.3 Pulse 86 Resp 22 B/P (MAP) 177/88 (117) Pulse Ox 98 O2 Delivery Room Air Room Air Room Air Room Air 03/19/20 03/19/20 03/19/20 03/19/20 01:21 01:21 01:51 03:15 Temp 98.7 98.7 Pulse 91 79 Resp 20 B/P (MAP) 177/88 148/80 (102) Pulse Ox 98 97 O2 Delivery Room Air Room Air Room Air 03/19/20 03/19/20 03/19/20 03/19/20 05:58 06:28 07:00 08:24 Temp 98.3 98.3 Pulse 77 89 Resp 21 B/P (MAP) 172/94 (120) 172/94 Pulse Ox 100 O2 Delivery Room Air Room Air Room Air 03/19/20 03/19/20 08:24 08:26 Pulse 89 Resp 18 B/P (MAP) 172/94 O2 Delivery Room Air Intake and Output 03/18/20 03/18/20 03/19/20 15:00 23:00 07:00 Intake Total 0 ml 400 ml 0 ml Output Total 1100 ml Balance 0 ml 400 ml -1100 ml Justicifation of Admission Dx: Justifications for Admission: Justification of Admission Dx: Yes Sepsis: Altered Mental Status KIRK GAMBINO MD Mar 19, 2020 09:39
[2020-03-19] MEDS ORDERED: METOPROLOL TARTRATE 5 MG/5 ML VIAL. IVP PRN (09:45)
[2020-03-19] MEDS ORDERED: POTASSIUM CHLORIDE 20 MEQ TABLET.ER. PO ONE (10:30)
--- NOTE | 2020-03-19 11:02 | NUR ---
SS following up with discharge planning. SS reviewed pt chart and discussed with pt RN. Pt is currently on room air. COVID19 negative. Pt having right ankle surgery today. SS will continue to follow for discharge planning.
[2020-03-19] MEDS ORDERED: IV RINGERS,LACTATED 1000ML 1,000 ML IV SCH (11:16)
[2020-03-19] MEDS ORDERED: fentaNYL PF VIAL 100 MCG/2 ML VIAL IV PRN ×2 (11:30)
[2020-03-19] MEDS ORDERED: HYDROmorphone 2 MG/ML VIAL IV PRN (11:30)
[2020-03-19] MEDS ORDERED: PROCHLORPERAZINE 10 MG/2 ML VIAL. IV PRN (11:30)
[2020-03-19] MEDS ORDERED: INSULIN LISPRO 100 UNIT/ML 3ML VIAL for OP,RR ONLY. SQ PRN (11:30)
[2020-03-19] MEDS ORDERED: ONDANSETRON PF 4 MG/2 ML VIAL. ONE (12:09)
[2020-03-19] MEDS ORDERED: PROPOFOL 10 MG/ML (20ML) VIAL. IV ONE (12:20)
[2020-03-19] MEDS ORDERED: LIDOCAINE 2% PF 5 ML VIAL. ONE (12:20)
[2020-03-19] MEDS ORDERED: SEVOFLURANE 16 TO 30 MINUTES. IH ONE (12:20)
--- NOTE | 2020-03-19 12:26 | PDOC4 ---
Operative Note Operative Note Date of Procedure: March 19, 2020 Pre-Op Diagnosis: Displaced trimalleolar fracture of right lower leg, initial encounter for closed fracture S82.851A Post-Op Diagnosis: * Displaced trimalleolar fracture of right lower leg, initial encounter for closed fracture S82.851A * Blister (nonthermal), right lower leg, initial encounter S80.821A Procedure: surgery cancelled after anesthesia but prior to incision Anesthesia Type: General Surgeon: Jammie Roberson MD Machine Marker: LUIS Wyatt INDICATIONS FOR PROCEDURE: The patient is a 64-year-old with a displaced unstable right ankle trimalleolar fracture. The patient and I discussed the risks and benefits of operative treatment. Surgical fixation likely will give a better long-term outcome. We talked about the risks of the operative fixation such as the risks of bleeding, infection, blood clots, need for hardware removal, stiffness or other potential surgical or anesthetic complications. All of her questions about surgery were answered and she desired to proceed. Written consent was obtained. PROCEDURE IN DETAIL: The patient was identified in the preoperative holding area. The correct right lower extremity was marked by me. The patient was taken to the operating room, where a general anesthetic was used. A timeout procedure was performed. The splint which had been applied in the emergency room was removed. Massive fracture blisters were noted, medially, laterally, and anteriorly. There is also an abrasion or other darkened skin area anteriorly, on the anterolateral aspect of the joint. I measured the blisters, all of which are serous filled, none of the three largest blisters are hemorrhagic. The medial nonthermal blister is 12 cm x 5 cm. The anterior blister over the anterolateral joint is 5 cm x 4 cm. The lateral blister over the entire posterior lateral fibular area is 9 cm x 5 cm. The smaller area on the anteromedial ankle joint which is a blackened color and perhaps is a ruptured hemorrhagic blister is 3 cm x 1.5 cm. Surgery would be too high risk under this condition; the blisters are very high risk to develop infection if surgery is performed now. It is probably best surgery did not occur yesterday because in that case the blisters might have developed postoperatively and would have markedly increased the risk of infec tion. Surgery is best delayed until blisters have resolved and new skin is forming. Xeroform was placed over all of the areas of blister formation. A well-padded splint was reapplied. The patient was allowed to awake and taken to the recovery room in stable condition. The patient will require a staged surgery, once the skin and soft tissues have recovered and epithelium is beginning to regrow at the areas of blister formation. Surgery probably will occur in the next 2 to 3 weeks if the skin allows surgery to be performed with acceptable risks at that time. JAMMIE ROBERSON MD Mar 19, 2020 12:26
[2020-03-19] MEDS ORDERED: oxyCODONE/APAP 5/325 1 TAB TABLET PO PRN (12:45)
[2020-03-19] MEDS: MORPHINE SULFATE 2 MG/ML VIAL. IV PRN ×2 (12:46→13:03)
[2020-03-19] MEDS: KETOROLAC 30 MG/ML VIAL. IVP SCH ×2 (14:00→18:26)
[2020-03-19] MEDS: LINAGLIPTIN 5 MG TABLET PO SCH (14:00)
[2020-03-19] MEDS: ENOXAPARIN 40 MG/0.4 ML SYRINGE. SQ SCH (14:01)
[2020-03-19] MEDS: hydroCHLOROthiazide 25 MG TABLET PO SCH (14:01)
[2020-03-19 15:00] VITALS: BP 166/78
[2020-03-19] MEDS ORDERED: ceFAZolin 2GM PREMIX 2 GM/50 ML BAG IV ONE (15:00)
[2020-03-19 19:00] VITALS: BP 140/68
[2020-03-19 22:57] VITALS: BP 116/90
[2020-03-20] MEDS: KETOROLAC 30 MG/ML VIAL. IVP SCH ×2 (00:12→05:41)
[2020-03-20] MEDS: IV NORMAL SALINE 1000ML BAG 1,000 ML IV SCH ×2 (00:16→11:47)
[2020-03-20 02:49] VITALS: BP 149/61
[2020-03-20 05:24] LABS: BASO % 1 % (0-3); EOS # 0.2 x10^3/uL (0.0-0.7); EOS % 3 % (0-3); HEMATOCRIT 37.5 % (36.0-47.0); HEMOGLOBIN 12.3 g/dL (12.0-15.5); LYMPH # 2.1 x10^3/uL (1.0-4.8); LYMPH % 31 % (24-48); MEAN CORPUSCULAR HEMOGLOBIN 29 pg (25-35); MEAN CORPUSCULAR HGB CONC 33 g/dL (31-37); MEAN CORPUSCULAR VOLUME 89 fL (79-100); MONO # 0.6 x10^3/uL (0.0-1.1); MONO % 9 % (0-9); NEUT # 3.9 x10^3/uL (1.8-7.7); NEUT % 57 % (31-73); PLATELET COUNT 246 x10^3/uL (140-400); RED BLOOD COUNT 4.21 x10^6/uL (3.50-5.40); RED CELL DISTRIBUTION WIDTH 15.4 % (11.5-14.5); WHITE BLOOD COUNT 6.9 x10^3/uL (4.0-11.0)
[2020-03-20 06:09] LABS: CALCIUM 8.5 mg/dL (8.5-10.1); GFR 67.1; POTASSIUM 3.4 mmol/L (3.5-5.1)
[2020-03-20 07:00] VITALS: BP 141/67
[2020-03-20] MEDS: INSULIN LISPRO 300 UNITS/3 ML VIAL. SQ SCH ×3 (08:00→17:00)
[2020-03-20] MEDS: hydroCHLOROthiazide 25 MG TABLET PO SCH (08:46)
[2020-03-20] MEDS: ENOXAPARIN 40 MG/0.4 ML SYRINGE. SQ SCH (08:46)
[2020-03-20] MEDS: LINAGLIPTIN 5 MG TABLET PO SCH (08:47)
[2020-03-20] MEDS: amLODIPine BESYLATE 10 MG TABLET PO SCH (08:47)
[2020-03-20] MEDS: POTASSIUM CHLORIDE 20 MEQ TABLET.ER. PO SCH (08:48)
[2020-03-20] MEDS: LOSARTAN POTASSIUM 50 MG TABLET. PO SCH (08:53)
--- NOTE | 2020-03-20 09:23 | PDOC ---
PROGRESS NOTES Date of Service: DATE: 03/20/20 TIME: 09:23 Chief Complaint Chief Complaint VTE Prophylaxis Ordered VTE Prophylaxis Devices: No VTE Pharmacological Prophylaxi: Yes Assessment/Plan Assessment/Plan IMPRESSION: Trimalleolar fracture OF right ankle, ACUTE MECHANICAL FALL MORBID OBESITY Mild to moderate tricuspid regurgitation. hypertension Diabetes hypokalemia, on replacement FRACTURE BLISTERS medial blister is 12 cm x 5 cm. The anterior blister over the anterolateral joint is 5 cm x 4 cm. lateral posterior lateral fibular area is 9 cm x 5 cm. anteromedial ankle joint which is a blackened color and perhaps is a ruptured hemorrhagic blister is 3 cm x 1.5 cm. plan ADMIT ORTHO CONSULT IV PAIN CONTROL NPO COVID SCREEN home meds accuchecks replace k D/W RN 03-20 MAY NEED SNF, consult wound care nurse 37 min pt exam, chart review, > 50% of time spent with exam, chart review, pt care coordination History of Present Illness History of Present Illness Identification/Chief Complaint Chief Complaint SEEN IN er after fall, twisting of right ankle 64-year-old female , complaining of severe right ankle pain. Patient fell twisting her ankle sideways. xray c/w trimalleolar fracture, FELL AT THE WHYTE DENIES CHEST PAIN Was wearing tennis shoes, slipped Past Medical History Past Medical History Past Medical History Past Medical History: Diabetes-Type II, Hypertension, Kidney Stone, Other Additional Past Medical Histor: BENIGN TUMORS IN UTERUS Past Surgical History: Other Additional Past Surgical Histo: BIOPSIES BREAST,LITHOTRIPSY Smoking Status: Never Smoker Alcohol Use: None Drug Use: None FHX OBESITY, HTN Cardiovascular: HTN Heme/Onc: No pertinent hx Family History Family History: Hypertension Social History Smoke: No ALCOHOL: none Drugs: None Current Problem List Problem List Problems Medical Problems: (1) Trimalleolar fracture of ankle, closed Status: Acute Vitals Vitals Vital Signs Date Time Temp Pulse Resp B/P (MAP) Pulse Ox O2 Delivery O2 Flow Rate FiO2 03/20/20 08:53 84 141/67 03/20/20 02:49 98.5 18 97 Room Air 98.5 03/19/20 19:50 10.0 Physical Exam Physical Exam Physical Exam Physical Exam General: Awake, alert, NAD. Well Nourished, well hydrated. Cooperative HEENT: Atraumatic, EOMI, PERRL, airway patent, moist oral mucosa Neck: Supple, trachea midline Respiratory: CTA bilaterally, normal effort, no wheezing/crackles CV: RRR, no murmur, cap refill <2 GI: Soft, nondistended, nontender, no masses MSK: Right ankle: Significant swelling in ankle and foot, 2+ DP pulse, intact sensation, normal distal capillary refill, SEVERAL BLISTERS Skin: Warm, dry, abrasion to medial right ankle Neuro: A&O x3, speech NL, sensory and motor grossly intact, no focal deficits Psych: Normal affect, normal mood, General: Alert, Oriented X3, Cooperative HEENT: Atraumatic, PERRLA, EOMI, Mucous membr. moist/pink Lungs: Clear to auscultation, Normal air movement Heart: S1S2, RRR, no thrills, no gallops Breasts: Not examined Abdomen: Normal bowel sounds, Soft Rectal Exam: not examined Extremities: No cyanosis Neuro: Normal speech, Cranial nerves 3-12 NL Psych/Mental Status: Mental status NL, Mood NL General: Alert, Oriented X3, Cooperative, No acute distress Heart: Regular rate Lungs: Clear Abdomen: Soft Extremities: No clubbing, No cyanosis, Other (Patient is unable to weight bear on the right ankle. The overall alignment is swollen and slightly grossly enlarged at the joint with a splint intact. There is focal tenderness of the distal fibula at the fracture site. There is tenderness at the medial malleolus and at the syndesmosis ligaments. Motor strength is decreased mobility due to pain with no focal neurologic deficit. She has the ability to dorsiflex and plantarflex the big toe and lesser toes, and intact sensation and capillary refill. I do not detect any diabetic neuropathy with light touch sensation examination of both feet.) Labs LABS 3 views the right ankle dated 03/17/2020. No comparison available. Clinical data indication: Pain after injury. FINDINGS: 3 views the right ankle show an oblique comminuted fractures of the distal one third fibular shaft, mildly displaced. There is also mildly displaced fracture of the medial malleolus, extending transverse at the malleoli are base. A nondisplaced fracture through the posterior malleolus seen on the lateral view. Diffuse soft tissue swelling. Small plantar spur. There is an ankle joint effusion. IMPRESSION: Trimalleolar fracture as described above. Electronically signed by: Enrique Ortez MD (03/17/2020 9:52 PM) [facility] DICTATED and SIGNED BY: ENRIQUE ORTEZ MD Operative Note Operative Note Date of Procedure: March 19, 2020 Pre-Op Diagnosis: Displaced trimalleolar fracture of right lower leg, initial encounter for closed fracture S82.851A Post-Op Diagnosis: * Displaced trimalleolar fracture of right lower leg, initial encounter for closed fracture S82.851A * Blister (nonthermal), right lower leg, initial encounter S80.821A Procedure: surgery cancelled after anesthesia but prior to incision Anesthesia Type: General Surgeon: Jammie Roberson MD Seam Presser: LUIS Wyatt INDICATIONS FOR PROCEDURE: The patient is a 64-year-old with a displaced unstable right ankle trimalleolar fracture. The patient and I discussed the risks and benefits of operative treatment. Surgical fixation likely will give a better long-term outcome. We talked about the risks of the operative fixation such as the risks of bleeding, infection, blood clots, need for hardware removal, stiffness or other potential surgical or anesthetic complications. All of her questions about surgery were answered and she desired to proceed. Written consent was obtained. PROCEDURE IN DETAIL: The patient was identified in the preoperative holding area. The correct right lower extremity was marked by me. The patient was taken to the operating room, where a general anesthetic was used. A timeout procedure was performed. The splint which had been applied in the emergency room was removed. Massive fracture blisters were noted, medially, laterally, and anteriorly. There is also an abrasion or other darkened skin area anteriorly, on the anterolateral aspect of the joint. I measured the blisters, all of which are serous filled, none of the three largest blisters are hemorrhagic. The medial nonthermal blister is 12 cm x 5 cm. The anterior blister over the anterolateral joint is 5 cm x 4 cm. The lateral blister over the entire posterior lateral fibular area is 9 cm x 5 cm. The smaller area on the anteromedial ankle joint which is a blackened color and perhaps is a ruptured hemorrhagic blister is 3 cm x 1.5 cm. Surgery would be too high risk under this condition; the blisters are very high risk to develop infection if surgery is performed now. It is probably best surgery did not occur yesterday because in that case the blisters might have developed postoperatively and would have markedly increased the risk of infection. Surgery is best delayed until blisters have resolved and new skin is forming. Xeroform was placed over all of the areas of blister formation. A well-padded splint was reapplied. The patient was allowed to awake and taken to the recovery room in stable condition. The patient will require a staged surgery, once the skin and soft tissues have recovered and epithelium is beginning to regrow at the areas of blister formation. Surgery probably will occur in the next 2 to 3 weeks if the skin allows surgery to be performed with acceptable risks at that time. JAMMIE ROBERSON MD Laboratory Tests Test 03/19/20 11:35 03/19/20 17:09 03/19/20 21:09 03/20/20 04:30 Glucose (Fingerstick) 91 mg/dL (70-99) 85 mg/dL (70-99) 124 mg/dL (70-99) White Blood Count 6.9 x10^3/uL (4.0-11.0) Red Blood Count 4.21 x10^6/uL (3.50-5.40) Hemoglobin 12.3 g/dL (12.0-15.5) Hematocrit 37.5 % (36.0-47.0) Mean Corpuscular Volume 89 fL (79-100) Mean Corpuscular Hemoglobin 29 pg (25-35) Mean Corpuscular Hemoglobin Concent 33 g/dL (31-37) Red Cell Distribution Width 15.4 % (11.5-14.5) Platelet Count 246 x10^3/uL (140-400) Neutrophils (%) (Auto) 57 % (31-73) Lymphocytes (%) (Auto) 31 % (24-48) Monocytes (%) (Auto) 9 % (0-9) Eosinophils (%) (Auto) 3 % (0-3) Basophils (%) (Auto) 1 % (0-3) Neutrophils # (Auto) 3.9 x10^3/uL (1.8-7.7) Lymphocytes # (Auto) 2.1 x10^3/uL (1.0-4.8) Monocytes # (Auto) 0.6 x10^3/uL (0.0-1.1) Eosinophils # (Auto) 0.2 x10^3/uL (0.0-0.7) Basophils # (Auto) 0.0 x10^3/uL (0.0-0.2) Sodium Level 138 mmol/L (136-145) Potassium Level 3.4 mmol/L (3.5-5.1) Chloride Level 104 mmol/L (98-107) Carbon Dioxide Level 23 mmol/L (21-32) Anion Gap 11 (6-14) Blood Urea Nitrogen 14 mg/dL (7-20) Creatinine 1.0 mg/dL (0.6-1.0) Estimated GFR (Cockcroft-Gault) 67.1 Glucose Level 85 mg/dL (70-99) Calcium Level 8.5 mg/dL (8.5-10.1) Test 03/20/20 07:31 Glucose (Fingerstick) 91 mg/dL (70-99) Assessment and Plan Assessmemt and Plan Problems Medical Problems: (1) Blister (nonthermal), right lower leg, initial encounter Status: Acute (2) Displaced trimalleolar fracture of right lower leg, initial encounter for closed fracture Status: Acute (3) Trimalleolar fracture of ankle, closed Status: Acute Comment Review of Relevant I have reviewed the following items oracio (where applicable) has been applied. Labs Laboratory Tests Test 03/18/20 10:50 03/18/20 11:50 03/18/20 17:07 03/19/20 04:40 Prothrombin Time 12.6 SEC (11.7-14.0) Prothromb Time International Ratio 1.0 (0.8-1.1) Glucose (Fingerstick) 102 mg/dL (70-99) 92 mg/dL (70-99) White Blood Count 6.5 x10^3/uL (4.0-11.0) Red Blood Count 4.58 x10^6/uL (3.50-5.40) Hemoglobin 13.4 g/dL (12.0-15.5) Hematocrit 40.6 % (36.0-47.0) Mean Corpuscular Volume 89 fL (79-100) Mean Corpuscular Hemoglobin 29 pg (25-35) Mean Corpuscular Hemoglobin Concent 33 g/dL (31-37) Red Cell Distribution Width 15.3 % (11.5-14.5) Platelet Count 269 x10^3/uL (140-400) Neutrophils (%) (Auto) 56 % (31-73) Lymphocytes (%) (Auto) 33 % (24-48) Monocytes (%) (Auto) 9 % (0-9) Eosinophils (%) (Auto) 2 % (0-3) Basophils (%) (Auto) 1 % (0-3) Neutrophils # (Auto) 3.6 x10^3/uL (1.8-7.7) Lymphocytes # (Auto) 2.1 x10^3/uL (1.0-4.8) Monocytes # (Auto) 0.6 x10^3/uL (0.0-1.1) Eosinophils # (Auto) 0.1 x10^3/uL (0.0-0.7) Basophils # (Auto) 0.0 x10^3/uL (0.0-0.2) Sodium Level 138 mmol/L (136-145) Potassium Level 3.3 mmol/L (3.5-5.1) Chloride Level 105 mmol/L (98-107) Carbon Dioxide Level 25 mmol/L (21-32) Anion Gap 8 (6-14) Blood Urea Nitrogen 9 mg/dL (7-20) Creatinine 0.7 mg/dL (0.6-1.0) Estimated GFR (Cockcroft-Gault) 101.3 Glucose Level 104 mg/dL (70-99) Calcium Level 8.7 mg/dL (8.5-10.1) Test 03/19/20 07:49 03/19/20 11:35 03/19/20 17:09 03/19/20 21:09 Glucose (Fingerstick) 105 mg/dL (70-99) 91 mg/dL (70-99) 85 mg/dL (70-99) 124 mg/dL (70-99) Test 03/20/20 04:30 03/20/20 07:31 White Blood Count 6.9 x10^3/uL (4.0-11.0) Red Blood Count 4.21 x10^6/uL (3.50-5.40) Hemoglobin 12.3 g/dL (12.0-15.5) Hematocrit 37.5 % (36.0-47.0) Mean Corpuscular Volume 89 fL (79-100) Mean Corpuscular Hemoglobin 29 pg (25-35) Mean Corpuscular Hemoglobin Concent 33 g/dL (31-37) Red Cell Distribution Width 15.4 % (11.5-14.5) Platelet Count 246 x10^3/uL (140-400) Neutrophils (%) (Auto) 57 % (31-73) Lymphocytes (%) (Auto) 31 % (24-48) Monocytes (%) (Auto) 9 % (0-9) Eosinophils (%) (Auto) 3 % (0-3) Basophils (%) (Auto) 1 % (0-3) Neutrophils # (Auto) 3.9 x10^3/uL (1.8-7.7) Lymphocytes # (Auto) 2.1 x10^3/uL (1.0-4.8) Monocytes # (Auto) 0.6 x10^3/uL (0.0-1.1) Eosinophils # (Auto) 0.2 x10^3/uL (0.0-0.7) Basophils # (Auto) 0.0 x10^3/uL (0.0-0.2) Sodium Level 138 mmol/L (136-145) Potassium Level 3.4 mmol/L (3.5-5.1) Chloride Level 104 mmol/L (98-107) Carbon Dioxide Level 23 mmol/L (21-32) Anion Gap 11 (6-14) Blood Urea Nitrogen 14 mg/dL (7-20) Creatinine 1.0 mg/dL (0.6-1.0) Estimated GFR (Cockcroft-Gault) 67.1 Glucose Level 85 mg/dL (70-99) Calcium Level 8.5 mg/dL (8.5-10.1) Glucose (Fingerstick) 91 mg/dL (70-99) Laboratory Tests Test 03/19/20 11:35 03/19/20 17:09 03/19/20 21:09 03/20/20 04:30 Glucose (Fingerstick) 91 mg/dL (70-99) 85 mg/dL (70-99) 124 mg/dL (70-99) White Blood Count 6.9 x10^3/uL (4.0-11.0) Red Blood Count 4.21 x10^6/uL (3.50-5.40) Hemoglobin 12.3 g/dL (12.0-15.5) Hematocrit 37.5 % (36.0-47.0) Mean Corpuscular Volume 89 fL (79-100) Mean Corpuscular Hemoglobin 29 pg (25-35) Mean Corpuscular Hemoglobin Concent 33 g/dL (31-37) Red Cell Distribution Width 15.4 % (11.5-14.5) Platelet Count 246 x10^3/uL (140-400) Neutrophils (%) (Auto) 57 % (31-73) Lymphocytes (%) (Auto) 31 % (24-48) Monocytes (%) (Auto) 9 % (0-9) Eosinophils (%) (Auto) 3 % (0-3) Basophils (%) (Auto) 1 % (0-3) Neutrophils # (Auto) 3.9 x10^3/uL (1.8-7.7) Lymphocytes # (Auto) 2.1 x10^3/uL (1.0-4.8) Monocytes # (Auto) 0.6 x10^3/uL (0.0-1.1) Eosinophils # (Auto) 0.2 x10^3/uL (0.0-0.7) Basophils # (Auto) 0.0 x10^3/uL (0.0-0.2) Sodium Level 138 mmol/L (136-145) Potassium Level 3.4 mmol/L (3.5-5.1) Chloride Level 104 mmol/L (98-107) Carbon Dioxide Level 23 mmol/L (21-32) Anion Gap 11 (6-14) Blood Urea Nitrogen 14 mg/dL (7-20) Creatinine 1.0 mg/dL (0.6-1.0) Estimated GFR (Cockcroft-Gault) 67.1 Glucose Level 85 mg/dL (70-99) Calcium Level 8.5 mg/dL (8.5-10.1) Test 03/20/20 07:31 Glucose (Fingerstick) 91 mg/dL (70-99) Medications Current Medications Morphine Sulfate (Morphine Sulfate) 5 mg 1X ONCE IV Last administered on 03/17/20at 22:58; Start 03/17/20 at 22:15; Stop 03/17/20 at 22:16; Status DC Hydromorphone HCl (Dilaudid) 1 mg PRN Q4HRS PRN IVP SEVERE PAIN 7-10; Start 03/18/20 at 00:45; Stop 03/18/20 at 00:42; Status DC Hydromorphone HCl (Dilaudid) 1 mg PRN Q6HRS PRN IVP SEVERE PAIN 7-10 Last administered on 03/19/20at 08:26; Start 03/18/20 at 00:45; Stop 03/19/20 at 09:12; Status DC Sodium Chloride 1,000 ml @ 100 mls/hr Q10H IV Last administered on 03/18/20at 0 9:04; Start 03/18/20 at 01:00; Stop 03/18/20 at 09:56; Status DC Fentanyl Citrate (Fentanyl 2ml Vial) 50 mcg PRN Q3HRS PRN IVP SEVERE PAIN, 1ST CHOICE Last administered on 03/19/20at 05:58; Start 03/18/20 at 04:15 Amlodipine Besylate (Norvasc) 10 mg DAILY PO Last administered on 03/20/20at 08:47; Start 03/18/20 at 10:00 Amlodipine Besylate (Norvasc) 10 mg DAILY PO ; Start 03/19/20 at 09:00; Status UNV Hydrochlorothiazide (Hydrodiuril) 25 mg DAILY PO Last administered on 03/20/20at 08:46; Start 03/18/20 at 10:00 Non-Formulary Medication (Hydrochlorothiazide (Hydrochlorothiazide Tablet)) 25 mg DAILY PO ; Start 03/19/20 at 09:00; Status UNV Losartan Potassium (Cozaar) 100 mg DAILY PO Last administered on 03/20/20at 08:53; Start 03/18/20 at 10:00 Non-Formulary Medication (Olmesartan Medoxomil (Benicar)) 40 mg DAILY PO ; Start 03/19/20 at 09:00; Status UNV Linagliptin (Tradjenta) 5 mg DAILY PO Last administered on 03/20/20at 08:47; Start 03/18/20 at 10:00 Potassium Chloride (Klor-Con) 40 meq 1X ONCE PO Last administered on 03/18/20at 14:01; Start 03/18/20 at 10:00; Stop 03/18/20 at 10:01; Status DC Potassium Chloride (Klor-Con) 20 meq DAILYWBKFT PO Last administered on 03/20/20at 08:48; Start 03/19/20 at 08:00 Sodium Chloride (Normal Saline Flush) 3 ml QSHIFT PRN IV AFTER MEDS AND BLOOD DRAWS; Start 03/18/20 at 10:00 Sodium Chloride 1,000 ml @ 100 mls/hr Q10H IV Last administered on 03/20/20at 00:16; Start 03/18/20 at 09:47 Ondansetron HCl (Zofran) 4 mg PRN Q4HRS PRN IV NAUSEA/VOMITING; Start 03/18/20 at 10:00 Acetaminophen (Tylenol) 650 mg PRN Q4HRS PRN PO TEMP OVER 100.4F; Start 03/18/20 at 10:00 Al Hydroxide/Mg Hydroxide (Mylanta Plus Xs) 30 ml PRN DAILY PRN PO HEARTBURN / GAS; Start 03/18/20 at 10:00 Sodium Monofluorophosphate (Fleet Adult) 133 ml PRN DAILY PRN [place] CONSTIPATION; Start 03/18/20 at 10:00 Docusate Sodium (Colace) 100 mg PRN BID PRN PO HARD STOOLS; Start 03/18/20 at 10:00 Albuterol Sulfate (Ventolin Neb Soln) 2.5 mg PRN Q4HRS PRN NEB SHORTNESS OF BREATH; Start 03/18/20 at 10:00 Guaifenesin (Robitussin) 200 mg PRN Q4HRS PRN PO COUGH; Start 03/18/20 at 10:00 Lorazepam (Ativan) 0.5 mg PRN Q4HRS PRN PO ANXIETY / AGITATION; Start 03/18/20 at 10:00 Hydromorphone HCl (Dilaudid) 0.6 mg PRN Q2HRS PRN IV PAIN MODERATE; Start 03/18/20 at 10:00 Enoxaparin Sodium (Lovenox 40mg Syringe) 40 mg Q24H SQ Last administered on 03/20/20at 08:46; Start 03/18/20 at 10:00 Insulin Human Lispro (HumaLOG) 0-5 UNITS TIDWMEALS SQ ; Start 03/18/20 at 12:00 Dextrose (Dextrose 50%-Water Syringe) 12.5 gm PRN Q15MIN PRN IV SEE COMMENTS; Start 03/18/20 at 10:00 Metoprolol Tartrate (Lopressor Vial) 5 mg PRN Q6HRS PRN IVP ELEVATED BP, SEE COMMENTS Last administered on 03/19/20at 01:21; Start 03/18/20 at 10:00; Stop 03/19/20 at 09:43; Status DC Bupivacaine HCl/ Epinephrine Bitart (Sensorcaine-Epi 0.25%-1:[id number] Mpf) 30 ml 1X ONCE INJ ; Start 03/19/20 at 08:00; Stop 03/19/20 at 08:01; Status DC Cefazolin Sodium/ Dextrose 50 ml @ 100 mls/hr 1X PREOP PRN IV SEE COMMENTS; Start 03/19/20 at 12:00 Potassium Chloride (Klor-Con) 40 meq 1X ONCE PO Last administered on 03/19/20at 14:00; Start 03/19/20 at 10:30; Stop 03/19/20 at 10:31; Status DC Metoprolol Tartrate (Lopressor Vial) 10 mg PRN Q6HRS PRN IVP ELEVATED BP, SEE COMMENTS; Start 03/19/20 at 09:45 Fentanyl Citrate (Fentanyl 2ml Vial) 25 mcg PRN Q5MIN PRN IV MILD PAIN 1-3; Start 03/19/20 at 11:30; Stop 03/20/20 at 11:29 Fentanyl Citrate (Fentanyl 2ml Vial) 50 mcg PRN Q5MIN PRN IV MODERATE TO SEVERE PAIN; Start 03/19/20 at 11:30; Stop 03/20/20 at 11:29 Morphine Sulfate (Morphine Sulfate) 1 mg PRN Q10MIN PRN IV SEVERE PAIN 7-10 Last administered on 03/19/20at 13:03; Start 03/19/20 at 11:30; Stop 03/20/20 at 11:29 Ringer's Solution 1,000 ml @ 30 mls/hr Q24H IV ; Start 03/19/20 at 11:16; Stop 03/19/20 at 15:08; Status DC Hydromorphone HCl (Dilaudid) 0.5 mg PRN Q10MIN PRN IV SEV PAIN, Second choice; Start 03/19/20 at 11:30; Stop 03/20/20 at 11:29 Prochlorperazine Edisylate (Compazine) 5 mg PACU PRN PRN IV NAUSEA, MRX1; Start 03/19/20 at 11:30; Stop 03/20/20 at 11:29 Insulin Human Lispro (HumaLOG VIAL for OP,RR ONLY) 0-10 units PRN Q1HR PRN SQ PER PROTOCOL; Start 03/19/20 at 11:30; Stop 03/20/20 at 11:29 Ondansetron HCl (Zofran) 4 mg STK-MED ONCE .ROUTE ; Start 03/19/20 at 12:09; Stop 03/19/20 at 12:09; Status DC Lidocaine HCl (Lidocaine Pf 2% Vial) 5 ml STK-MED ONCE .ROUTE ; Start 03/19/20 at 12:20; Stop 03/19/20 at 12:21; Status DC Propofol (Diprivan) 200 mg STK-MED ONCE IV ; Start 03/19/20 at 12:20; Stop 03/19/20 at 12:21; Status DC Sevoflurane (Ultane) 15 ml STK-MED ONCE IH ; Start 03/19/20 at 12:20; Stop 03/19/20 at 12:21; Status DC Ketorolac Tromethamine (Toradol 30mg Vial) 15 mg Q6HRS IVP Last administered on 03/20/20at 05:41; Start 03/19/20 at 13:00; Stop 03/20/20 at 06:01; Status DC Oxycodone/ Acetaminophen (Percocet 5/325) 1 tab PRN Q4HRS PRN PO PAIN; Start 03/19/20 at 12:45 Oxycodone/ Acetaminophen (Percocet 5/325) 2 tab PRN Q4HRS PRN PO PAIN; Start 03/19/20 at 12:45 Active Scripts Active Hydrocodone-Apap 5-325 (Hydrocodone Bit/Acetaminophen) 1 Tab Tablet 1 Tab PO PRN Q8HRS PRN Reported Hydrochlorothiazide 25 Mg Tablet 1 Tab PO DAILY Januvia (Sitagliptin Phosphate) 100 Mg Tablet 1 Tab PO DAILY Losartan Potassium 100 Mg Tablet 1 Tab PO DAILY Amlodipine Besylate 10 Mg Tablet 1 Tab PO DAILY Metformin Hcl Er (Metformin Hcl) 750 Mg Tab.er.24h 750 Mg PO DAILYWBKFT Benicar (Olmesartan Medoxomil) 40 Mg Tablet 40 Mg PO DAILY Hydrochlorothiazide Tablet (Hydrochlorothiazide) 50 Mg Tablet 25 Mg PO DAILY Norvasc (Amlodipine Besylate) 10 Mg Tablet 10 Mg PO DAILY Vitals/I & O Vital Sign - Last 24 Hours 03/19/20 03/19/20 03/19/20 03/19/20 11:30 11:39 12:22 12:22 Temp 97.8 97.0 97.8 97.0 Pulse 84 84 84 Resp 20 B/P (MAP) 162/89 166/85 146/80 Pulse Ox 99 96 100 O2 Delivery Room Air Room Air Simple Mask Mask O2 Flow Rate 10 10 03/19/20 03/19/20 03/19/20 03/19/20 12:38 12:46 13:03 15:00 Temp 97.0 98.7 97.0 98.7 Pulse 79 89 Resp 05 24 22 21 B/P (MAP) 173/91 166/78 (107) Pulse Ox 99 97 99 97 O2 Delivery Room Air Room Air Room Air Room Air 03/19/20 03/19/20 03/19/20 03/20/20 19:00 19:50 22:57 02:49 Temp 98.6 98.8 98.5 98.6 98.8 98.5 Pulse 93 96 79 Resp 18 B/P (MAP) 140/68 (92) 116/90 (99) 149/61 (90) Pulse Ox 97 100 97 O2 Delivery Room Air Mask Room Air Room Air O2 Flow Rate 10.0 03/20/20 03/20/20 08:47 08:53 Pulse 84 84 B/P (MAP) 141/67 141/67 Intake and Output 03/19/20 03/19/20 03/20/20 15:00 23:00 07:00 Intake Total 500 ml 900 ml 900 ml Output Total 600 ml 600 ml Balance -100 ml 300 ml 900 ml Justicifation of Admission Dx: Justifications for Admission: Justification of Admission Dx: Yes Sepsis: Altered Mental Status KIRK GAMBINO MD Mar 20, 2020 09:23
[2020-03-20 11:00] VITALS: BP 154/82
--- NOTE | 2020-03-20 11:56 | NUR ---
SS following for discharge planning. SS reviewed pt chart and discussed with pt RN. Pt is currently on room air. COVID19 negative. Per RN, pt's surgery cancelled yesterday due to blisters on feet. Wound care consulted for blisters. Per RN, surgery will be rescheduled for 2-3 weeks. PT/OT recommended jail unit. SS met with pt and discussed jail unit and discharge planning. Pt declined jail unit due to concerns with COVID19. Pt requesting to return to home with family and requested to rent a knee scooter. SS contacted [facility], ; fax [phone], and inquired about knee scooter rental. Pt unsure about home healthcare at this time. SS will continue to follow for discharge planning.
[2020-03-20] MEDS ORDERED: POTASSIUM CHLORIDE 20 MEQ TABLET.ER. PO ONE (12:15)
[2020-03-20 15:00] VITALS: BP 142/72
--- NOTE | 2020-03-20 15:34 | NUR ---
SS following up with discharge planning. SS received notification that [employer] , has knee walkers for rent for $85/month. SS provided pt with contact information. SS will continue to follow for discharge planning.
--- NOTE | 2020-03-20 16:33 | NUR ---
Wound Care Wound Type/Assessment: Consult by Karol for treatment recommendations for fracture blisters to to R ankle. Pt was scheduled to have an internal fixation of multiple R ankle fractures, but was canceled due to blisters. Blisters pictured and measured. Intact at time of assessment. Susie BASHIR at bedside to deflate blisters, confirmed by Dr. Roberson. Large amount of yellow serosanguineous drainage from medial and lateral ankle blisters. Treatment Recommendations/Plan: Aquacel AG, ABD, kerlix change daily. Wear CAM boot at all times. Education provided: Discussed that CAM boot will be serving as a splint for her ankle, and removal of the hard plastic part is not recommended. Educated to turn periodically to prevent pressure sores to other areas of her body. Offloading surface/device: Pillows for comfort, able to self turn Recommended Referrals/Tests: Will reassess 03/23/2020 and report to Karol Discharge Recommendations for dressings: TBD
[2020-03-20] MEDS: oxyCODONE/APAP 5/325 1 TAB TABLET PO PRN (17:04)
--- NOTE | 2020-03-20 17:33 | PDOC2 ---
Chief Complaint: Chief Complaint: Left ankle fx with fx blisters present Vital Signs: Vital Signs: Vital Signs Date Time Temp Pulse Resp B/P (MAP) Pulse Ox O2 Delivery O2 Flow Rate FiO2 03/19/20 07:00 98.3 77 21 172/94 (120) 100 Room Air 98.3 03/19/20 12:22 10 Vital Signs Date Time Temp Pulse Resp B/P (MAP) Pulse Ox O2 Delivery O2 Flow Rate FiO2 03/20/20 17:04 18 Room Air 03/20/20 15:00 98.2 91 142/72 (95) 99 98.2 03/19/20 19:50 10.0 Allergies: Allergies: Allergies Coded Allergies Type Severity Reaction Last Updated Verified No Known Drug Allergies 09/08/16 No Medications: Home Meds Active Scripts Hydrocodone Bit/Acetaminophen (HYDROCODONE-APAP 5-325 ) 1 Tab Tablet, 1 TAB PO PRN Q8HRS PRN for sev, #8 TAB 0 Refills Prov:CHAVEZ THOMPSON MD 07/31/19 Reported Medications Hydrochlorothiazide (Hydrochlorothiazide) 25 Mg Tablet, 1 TAB PO DAILY for HTN 03/18/20 Sitagliptin Phosphate (JANUVIA) 100 Mg Tablet, 1 TAB PO DAILY for blood sugar 03/18/20 Losartan Potassium (LOSARTAN POTASSIUM) 100 Mg Tablet, 1 TAB PO DAILY for HTN 03/18/20 Amlodipine Besylate (AMLODIPINE BESYLATE) 10 Mg Tablet, 1 TAB PO DAILY for HTN 03/18/20 Metformin Hcl (METFORMIN HCL ER) 750 Mg Tab.er.24h, 750 MG PO DAILYWBKFT for ANTI-DIABETIC, TAB 0 Refills 09/08/16 Olmesartan Medoxomil (BENICAR) 40 Mg Tablet, 40 MG PO DAILY, TAB 09/08/16 Hydrochlorothiazide (HYDROCHLOROTHIAZIDE TABLET) 50 Mg Tablet, 25 MG PO DAILY for DIURETIC, TAB 0 Refills 09/08/16 Amlodipine Besylate (NORVASC) 10 Mg Tablet, 10 MG PO DAILY, TAB 09/08/16 PCP: PCP: Dr Quintana Pain: Pain Location: Ankle (Right ankle with movement and palpation) Scale (pain): 10 PMH Pt with right ankle fx following a fall at home. Pt taken to surgery this am and fracture blisters noted to medial and lateral aspects of ankle, surgery postponed. Patient denies history of difficulty with wound healing. Patient with underlying diabetes, most recent hemoglobin A 1C less than 7. Patient currently controlled with oral agents. [facility] Patient lives at home with her . Patient states prior to her injury she was ambulatory without assistance. Patient denies history of tobacco use, alcohol use or illicit drug use. Review of Systems: Patient states that she is feeling well outside of the pain in her right ankle. Patient states that she has a good appetite without nausea, vomiting or diarrhea. Patient denies cough or shortness of breath. Patient states that she has had normal output since admission. Patient states that she is sleeping okay. Patient denies mood changes. Physical Exam Patient awake and alert 64-year-old -[place] female in no apparent distress. Patient pleasant in conversation and is a good historian. Vital signs are stable and patient is afebrile. Respirations are even and unlabored. Patient is on room air not requiring supplemental oxygen at this time. Abdomen is soft, nondistended and nontender to palpation. Skin is warm dry and pink. The right ankle presents with large bullae to the medial and lateral malleolus region. There is no surrounding erythema or edema present at this time. A/P Right ankle fracture with associated fracture blisters - Due to size of bullae and associated pain, bullae incised at bedside. - Apply aquacell Ag, abd and kerlix qd or prn if dressing loose or saturated. - Due to size of dressing, dc current splint and start Cam Walker BECKA CORREIA APRN Mar 20, 2020 17:33
[2020-03-20 19:00] VITALS: BP 128/60
[2020-03-20 22:59] VITALS: BP 127/77
[2020-03-20 23:08] LABS: HEMOGLOBIN A1C 6.4 % (4.8-5.6)
[2020-03-21] MEDS: oxyCODONE/APAP 5/325 1 TAB TABLET PO PRN ×4 (01:36→21:01)
[2020-03-21 02:29] VITALS: BP 153/89
[2020-03-21 05:24] LABS: CALCIUM 8.7 mg/dL (8.5-10.1); GFR 67.1; POTASSIUM 3.7 mmol/L (3.5-5.1)
[2020-03-21 07:00] VITALS: BP 159/81
[2020-03-21] MEDS: INSULIN LISPRO 300 UNITS/3 ML VIAL. SQ SCH ×3 (08:00→16:31)
[2020-03-21] MEDS: hydroCHLOROthiazide 25 MG TABLET PO SCH (08:20)
[2020-03-21] MEDS: LINAGLIPTIN 5 MG TABLET PO SCH (08:20)
[2020-03-21] MEDS: LOSARTAN POTASSIUM 50 MG TABLET. PO SCH (08:21)
[2020-03-21] MEDS: amLODIPine BESYLATE 10 MG TABLET PO SCH (08:21)
[2020-03-21] MEDS: POTASSIUM CHLORIDE 20 MEQ TABLET.ER. PO SCH ×2 (08:22→10:52)
[2020-03-21] MEDS: ENOXAPARIN 40 MG/0.4 ML SYRINGE. SQ SCH (08:25)
--- NOTE | 2020-03-21 10:06 | PDOC ---
PROGRESS NOTES Date of Service: DATE: 03/21/20 TIME: 10:06 Chief Complaint Chief Complaint VTE Prophylaxis Ordered VTE Prophylaxis Devices: No VTE Pharmacological Prophylaxi: Yes Assessment/Plan Assessment/Plan IMPRESSION: Trimalleolar fracture OF right ankle, ACUTE MECHANICAL FALL MORBID OBESITY Mild to moderate tricuspid regurgitation. hypertension Diabetes hypokalemia, on replacement FRACTURE BLISTERS medial blister is 12 cm x 5 cm. The anterior blister over the anterolateral joint is 5 cm x 4 cm. lateral posterior lateral fibular area is 9 cm x 5 cm. anteromedial ankle joint which is a blackened color and perhaps is a ruptured hemorrhagic blister is 3 cm x 1.5 cm. plan ADMIT ORTHO CONSULT IV PAIN CONTROL NPO COVID SCREEN home meds accuchecks replace k Due to size of bullae and associated pain, bullae incised at bedside. BY WOUND CARE NURSES D/W RN 10-10 MAY NEED SNF, consult wound care nurse 27 min pt exam, chart review, > 50% of time spent with exam, chart review, pt ca re coordination History of Present Illness History of Present Illness Identification/Chief Complaint Chief Complaint SEEN IN er after fall, twisting of right ankle 64-year-old female , complaining of severe right ankle pain. Patient fell twisting her ankle sideways. xray c/w trimalleolar fracture, FELL AT THE [place] DENIES CHEST PAIN Was wearing tennis shoes, slipped Past Medical History Past Medical History Past Medical History Past Medical History: Diabetes-Type II, Hypertension, Kidney Stone, Other Additional Past Medical Histor: BENIGN TUMORS IN UTERUS Past Surgical History: Other Additional Past Surgical Histo: BIOPSIES BREAST,LITHOTRIPSY Smoking Status: Never Smoker Alcohol Use: None Drug Use: None FHX OBESITY, HTN Cardiovascular: HTN Heme/Onc: No pertinent hx Family History Family History: Hypertension Social History Smoke: No ALCOHOL: none Drugs: None Current Problem List Problem List Problems Medical Problems: (1) Trimalleolar fracture of ankle, closed Status: Acute Vitals Vitals Vital Signs Date Time Temp Pulse Resp B/P (MAP) Pulse Ox O2 Delivery O2 Flow Rate FiO2 03/21/20 08:22 97 Room Air 03/21/20 08:21 72 159/81 03/21/20 07:00 98.2 20 98.2 Physical Exam Physical Exam Physical Exam Physical Exam General: Awake, alert, NAD. Well Nourished, well hydrated. Cooperative HEENT: Atraumatic, EOMI, PERRL, airway patent, moist oral mucosa Neck: Supple, trachea midline Respiratory: CTA bilaterally, normal effort, no wheezing/crackles CV: RRR, no murmur, cap refill <2 GI: Soft, nondistended, nontender, no masses MSK: Right ankle: Significant swelling in ankle and foot, 2+ DP pulse, intact sensation, normal distal capillary refill, SEVERAL BLISTERS Skin: Warm, dry, abrasion to medial right ankle Neuro: A&O x3, speech NL, sensory and motor grossly intact, no focal deficits Psych: Normal affect, normal mood, General: Alert, Oriented X3, Cooperative HEENT: Atraumatic, PERRLA, EOMI, Mucous membr. moist/pink Lungs: Clear to auscultation, Normal air movement Heart: S1S2, RRR, no thrills, no gallops Breasts: Not examined Abdomen: Normal bowel sounds, Soft Rectal Exam: not examined Extremities: No cyanosis Neuro: Normal speech, Cranial nerves 3-12 NL Psych/Mental Status: Mental status NL, Mood NL General: Alert, Oriented X3, Cooperative, No acute distress Heart: Regular rate, Normal S1, Normal S2 Lungs: Clear Abdomen: Normal bowel sounds, Soft, No tenderness Extremities: No clubbing, No cyanosis, Other (Patient is unable to weight bear on the right ankle. The overall alignment is swollen and slightly grossly enlarged at the joint with a splint intact. There is focal tenderness of the distal fibula at the fracture site. There is tenderness at the medial malleolus and at the syndesmosis ligaments. Motor strength is decreased mobility due to pain with no focal neurologic deficit. She has the ability to dorsiflex and plantarflex the big toe and lesser toes, and intact sensation and capillary refill. I do not detect any diabetic neuropathy with light touch sensation examination of both feet.) Labs LABS Laboratory Tests Test 03/20/20 11:59 03/20/20 17:15 03/20/20 20:22 03/21/20 04:30 Glucose (Fingerstick) 116 mg/dL (70-99) 92 mg/dL (70-99) 175 mg/dL (70-99) Sodium Level 135 mmol/L (136-145) Potassium Level 3.7 mmol/L (3.5-5.1) Chloride Level 103 mmol/L (98-107) Carbon Dioxide Level 25 mmol/L (21-32) Anion Gap 7 (6-14) Blood Urea Nitrogen 18 mg/dL (7-20) Creatinine 1.0 mg/dL (0.6-1.0) Estimated GFR (Cockcroft-Gault) 67.1 Glucose Level 125 mg/dL (70-99) Calcium Level 8.7 mg/dL (8.5-10.1) Test 03/21/20 07:19 Glucose (Fingerstick) 97 mg/dL (70-99) Assessment and Plan Assessmemt and Plan Problems Medical Problems: (1) Blister (nonthermal), right lower leg, initial encounter Status: Acute (2) Displaced trimalleolar fracture of right lower leg, initial encounter for closed fracture Status: Acute (3) Trimalleolar fracture of ankle, closed Status: Acute Comment Review of Relevant I have reviewed the following items oracio (where applicable) has been applied. Labs Laboratory Tests Test 03/19/20 11:35 03/19/20 17:09 03/19/20 21:09 03/20/20 04:30 Glucose (Fingerstick) 91 mg/dL (70-99) 85 mg/dL (70-99) 124 mg/dL (70-99) White Blood Count 6.9 x10^3/uL (4.0-11.0) Red Blood Count 4.21 x10^6/uL (3.50-5.40) Hemoglobin 12.3 g/dL (12.0-15.5) Hematocrit 37.5 % (36.0-47.0) Mean Corpuscular Volume 89 fL (79-100) Mean Corpuscular Hemoglobin 29 pg (25-35) Mean Corpuscular Hemoglobin Concent 33 g/dL (31-37) Red Cell Distribution Width 15.4 % (11.5-14.5) Platelet Count 246 x10^3/uL (140-400) Neutrophils (%) (Auto) 57 % (31-73) Lymphocytes (%) (Auto) 31 % (24-48) Monocytes (%) (Auto) 9 % (0-9) Eosinophils (%) (Auto) 3 % (0-3) Basophils (%) (Auto) 1 % (0-3) Neutrophils # (Auto) 3.9 x10^3/uL (1.8-7.7) Lymphocytes # (Auto) 2.1 x10^3/uL (1.0-4.8) Monocytes # (Auto) 0.6 x10^3/uL (0.0-1.1) Eosinophils # (Auto) 0.2 x10^3/uL (0.0-0.7) Basophils # (Auto) 0.0 x10^3/uL (0.0-0.2) Sodium Level 138 mmol/L (136-145) Potassium Level 3.4 mmol/L (3.5-5.1) Chloride Level 104 mmol/L (98-107) Carbon Dioxide Level 23 mmol/L (21-32) Anion Gap 11 (6-14) Blood Urea Nitrogen 14 mg/dL (7-20) Creatinine 1.0 mg/dL (0.6-1.0) Estimated GFR (Cockcroft-Gault) 67.1 Glucose Level 85 mg/dL (70-99) Hemoglobin A1c 6.4 % (4.8-5.6) Calcium Level 8.5 mg/dL (8.5-10.1) 25-Hydroxy Vitamin D Total 8.9 ng/mL (30-100) Test 03/20/20 07:31 03/20/20 11:59 03/20/20 17:15 03/20/20 20:22 Glucose (Fingerstick) 91 mg/dL (70-99) 116 mg/dL (70-99) 92 mg/dL (70-99) 175 mg/dL (70-99) Test 03/21/20 04:30 03/21/20 07:19 Sodium Level 135 mmol/L (136-145) Potassium Level 3.7 mmol/L (3.5-5.1) Chloride Level 103 mmol/L (98-107) Carbon Dioxide Level 25 mmol/L (21-32) Anion Gap 7 (6-14) Blood Urea Nitrogen 18 mg/dL (7-20) Creatinine 1.0 mg/dL (0.6-1.0) Estimated GFR (Cockcroft-Gault) 67.1 Glucose Level 125 mg/dL (70-99) Calcium Level 8.7 mg/dL (8.5-10.1) Glucose (Fingerstick) 97 mg/dL (70-99) Laboratory Tests Test 03/20/20 11:59 03/20/20 17:15 03/20/20 20:22 03/21/20 04:30 Glucose (Fingerstick) 116 mg/dL (70-99) 92 mg/dL (70-99) 175 mg/dL (70-99) Sodium Level 135 mmol/L (136-145) Potassium Level 3.7 mmol/L (3.5-5.1) Chloride Level 103 mmol/L (98-107) Carbon Dioxide Level 25 mmol/L (21-32) Anion Gap 7 (6-14) Blood Urea Nitrogen 18 mg/dL (7-20) Creatinine 1.0 mg/dL (0.6-1.0) Estimated GFR (Cockcroft-Gault) 67.1 Glucose Level 125 mg/dL (70-99) Calcium Level 8.7 mg/dL (8.5-10.1) Test 03/21/20 07:19 Glucose (Fingerstick) 97 mg/dL (70-99) Medications Current Medications Morphine Sulfate (Morphine Sulfate) 5 mg 1X ONCE IV Last administered on 03/17/20at 22:58; Start 03/17/20 at 22:15; Stop 03/17/20 at 22:16; Status DC Hydromorphone HCl (Dilaudid) 1 mg PRN Q4HRS PRN IVP SEVERE PAIN 7-10; Start 03/18/20 at 00:45; Stop 03/18/20 at 00:42; Status DC Hydromorphone HCl (Dilaudid) 1 mg PRN Q6HRS PRN IVP SEVERE PAIN 7-10 Last administered on 03/19/20at 08:26; Start 03/18/20 at 00:45; Stop 03/19/20 at 09:12; Status DC Sodium Chloride 1,000 ml @ 100 mls/hr Q10H IV Last administered on 03/18/20at 09:04; Start 03/18/20 at 01:00; Stop 03/18/20 at 09:56; Status DC Fentanyl Citrate (Fentanyl 2ml Vial) 50 mcg PRN Q3HRS PRN IVP SEVERE PAIN, 1ST CHOICE Last administered on 03/19/20at 05:58; Start 03/18/20 at 04:15 Amlodipine Besylate (Norvasc) 10 mg DAILY PO Last administered on 03/21/20at 08:21; Start 03/18/20 at 10:00 Amlodipine Besylate (Norvasc) 10 mg DAILY PO ; Start 03/19/20 at 09:00; Status UNV Hydrochlorothiazide (Hydrodiuril) 25 mg DAILY PO Last administered on 03/21/20at 08:20; Start 03/18/20 at 10:00 Non-Formulary Medication (Hydrochlorothiazide (Hydrochlorothiazide Tablet)) 25 mg DAILY PO ; Start 03/19/20 at 09:00; Status UNV Losartan Potassium (Cozaar) 100 mg DAILY PO Last administered on 03/21/20at 08:21; Start 03/18/20 at 10:00 Non-Formulary Medication (Olmesartan Medoxomil (Benicar)) 40 mg DAILY PO ; Start 03/19/20 at 09:00; Status UNV Linagliptin (Tradjenta) 5 mg DAILY PO Last administered on 03/21/20at 08:20; Start 03/18/20 at 10:00 Potassium Chloride (Klor-Con) 40 meq 1X ONCE PO Last administered on 03/18/20at 14:01; Start 03/18/20 at 10:00; Stop 03/18/20 at 10:01; Status DC Potassium Chloride (Klor-Con) 20 meq DAILYWBKFT PO Last administered on 1 at 08:22; Start 03/19/20 at 08:00 Sodium Chloride (Normal Saline Flush) 3 ml QSHIFT PRN IV AFTER MEDS AND BLOOD DRAWS; Start 03/18/20 at 10:00 Sodium Chloride 1,000 ml @ 100 mls/hr Q10H IV Last administered on 03/20/20at 00:16; Start 03/18/20 at 09:47; Stop 03/20/20 at 18:09; Status DC Ondansetron HCl (Zofran) 4 mg PRN Q4HRS PRN IV NAUSEA/VOMITING; Start 03/18/20 at 10:00 Acetaminophen (Tylenol) 650 mg PRN Q4HRS PRN PO TEMP OVER 100.4F; Start 03/18/20 at 10:00 Al Hydroxide/Mg Hydroxide (Mylanta Plus Xs) 30 ml PRN DAILY PRN PO HEARTBURN / GAS; Start 03/18/20 at 10:00 Sodium Monofluorophosphate (Fleet Adult) 133 ml PRN DAILY PRN NV CONSTIPATION; Start 03/18/20 at 10:00 Docusate Sodium (Colace) 100 mg PRN BID PRN PO HARD STOOLS; Start 03/18/20 at 10:00 Albuterol Sulfate (Ventolin Neb Soln) 2.5 mg PRN Q4HRS PRN NEB SHORTNESS OF BREATH; Start 03/18/20 at 10:00 Guaifenesin (Robitussin) 200 mg PRN Q4HRS PRN PO COUGH; Start 03/18/20 at 10:00 Lorazepam (Ativan) 0.5 mg PRN Q4HRS PRN PO ANXIETY / AGITATION; Start 03/18/20 at 10:00 Hydromorphone HCl (Dilaudid) 0.6 mg PRN Q2HRS PRN IV PAIN MODERATE; Start 03/18/20 at 10:00 Enoxaparin Sodium (Lovenox 40mg Syringe) 40 mg Q24H SQ Last administered on 03/21/20at 08:25; Start 03/18/20 at 10:00 Insulin Human Lispro (HumaLOG) 0-5 UNITS TIDWMEALS SQ ; Start 03/18/20 at 12:00 Dextrose (Dextrose 50%-Water Syringe) 12.5 gm PRN Q15MIN PRN IV SEE COMMENTS; Start 03/18/20 at 10:00 Metoprolol Tartrate (Lopressor Vial) 5 mg PRN Q6HRS PRN IVP ELEVATED BP, SEE COMMENTS Last administered on 03/19/20at 01:21; Start 03/18/20 at 10:00; Stop 03/19/20 at 09:43; Status DC Bupivacaine HCl/ Epinephrine Bitart (Sensorcaine-Epi 0.25%-1:381959 Mpf) 30 ml 1X ONCE INJ ; Start 03/19/20 at 08:00; Stop 03/19/20 at 08:01; Status DC Cefazolin Sodium/ Dextrose 50 ml @ 100 mls/hr 1X PREOP PRN IV SEE COMMENTS; Start 03/19/20 at 12:00 Potassium Chloride (Klor-Con) 40 meq 1X ONCE PO Last administered on 03/19/20at 14:00; Start 03/19/20 at 10:30; Stop 03/19/20 at 10:31; Status DC Metoprolol Tartrate (Lopressor Vial) 10 mg PRN Q6HRS PRN IVP ELEVATED BP, SEE COMMENTS; Start 03/19/20 at 09:45 Fentanyl Citrate (Fentanyl 2ml Vial) 25 mcg PRN Q5MIN PRN IV MILD PAIN 1-3; Start 03/19/20 at 11:30; Stop 03/20/20 at 11:29; Status DC Fentanyl Citrate (Fentanyl 2ml Vial) 50 mcg PRN Q5MIN PRN IV MODERATE TO SEVERE PAIN; Start 03/19/20 at 11:30; Stop 03/20/20 at 11:29; Status DC Morphine Sulfate (Morphine Sulfate) 1 mg PRN Q10MIN PRN IV SEVERE PAIN 7-10 Last administered on 03/19/20at 13:03; Start 03/19/20 at 11:30; Stop 03/20/20 at 11:29; Status DC Ringer's Solution 1,000 ml @ 30 mls/hr Q24H IV ; Start 03/19/20 at 11:16; Stop 03/19/20 at 15:08; Status DC Hydromorphone HCl (Dilaudid) 0.5 mg PRN Q10MIN PRN IV SEV PAIN, Second choice; Start 03/19/20 at 11:30; Stop 03/20/20 at 11:29; Status DC Prochlorperazine Edisylate (Compazine) 5 mg PACU PRN PRN IV NAUSEA, MRX1; Start 03/19/20 at 11:30; Stop 03/20/20 at 11:29; Status DC Insulin Human Lispro (HumaLOG VIAL for OP,RR ONLY) 0-10 units PRN Q1HR PRN SQ PER PROTOCOL; Start 03/19/20 at 11:30; Stop 03/20/20 at 11:29; Status DC Ondansetron HCl (Zofran) 4 mg STK-MED ONCE .ROUTE ; Start 03/19/20 at 12:09; Stop 03/19/20 at 12:09; Status DC Lidocaine HCl (Lidocaine Pf 2% Vial) 5 ml STK-MED ONCE .ROUTE ; Start 03/19/20 at 12:20; Stop 03/19/20 at 12:21; Status DC Propofol (Diprivan) 200 mg STK-MED ONCE IV ; Start 03/19/20 at 12:20; Stop 03/19/20 at 12:21; Status DC Sevoflurane (Ultane) 15 ml STK-MED ONCE IH ; Start 03/19/20 at 12:20; Stop 03/19/20 at 12:21; Status DC Ketorolac Tromethamine (Toradol 30mg Vial) 15 mg Q6HRS IVP Last administered on 03/20/20at 05:41; Start 03/19/20 at 13:00; Stop 03/20/20 at 06:01; Status DC Oxycodone/ Acetaminophen (Percocet 5/325) 1 tab PRN Q4HRS PRN PO PAIN; Start 03/19/20 at 12:45 Oxycodone/ Acetaminophen (Percocet 5/325) 2 tab PRN Q4HRS PRN PO PAIN Last administered on 03/21/20at 08:22; Start 03/19/20 at 12:45 Potassium Chloride (Klor-Con) 40 meq 1X ONCE PO Last administered on 03/20/20at 12:55; Start 03/20/20 at 12:15; Stop 03/20/20 at 12:19; Status DC Potassium Chloride (Klor-Con) 20 meq DAILYWBKFT PO ; Start 03/21/20 at 08:00 Cefazolin Sodium/ Dextrose (Ancef 2gm Premix) 2 gm STK-MED ONCE IV ; Start 03/19/20 at 15:00; Stop 03/20/20 at 15:20; Status DC Active Scripts Active Hydrocodone-Apap 5-325 (Hydrocodone Bit/Acetaminophen) 1 Tab Tablet 1 Tab PO PRN Q8HRS PRN Reported Hydrochlorothiazide 25 Mg Tablet 1 Tab PO DAILY Januvia (Sitagliptin Phosphate) 100 Mg Tablet 1 Tab PO DAILY Losartan Potassium 100 Mg Tablet 1 Tab PO DAILY Amlodipine Besylate 10 Mg Tablet 1 Tab PO DAILY Metformin Hcl Er (Metformin Hcl) 750 Mg Tab.er.24h 750 Mg PO DAILYWBKFT Benicar (Olmesartan Medoxomil) 40 Mg Tablet 40 Mg PO DAILY Hydrochlorothiazide Tablet (Hydrochlorothiazide) 50 Mg Tablet 25 Mg PO DAILY Norvasc (Amlodipine Besylate) 10 Mg Tablet 10 Mg PO DAILY Vitals/I & O Vital Sign - Last 24 Hours 03/20/20 03/20/20 03/20/20 03/20/20 11:00 15:00 17:04 18:04 Temp 99.5 98.2 99.5 98.2 Pulse 95 91 Resp 19 20 18 18 B/P (MAP) 154/82 (106) 142/72 (95) Pulse Ox 98 99 O2 Delivery Room Air Room Air Room Air Room Air 03/20/20 03/20/20 03/20/20 03/21/20 19:00 20:00 22:59 02:29 Temp 98.8 98.2 98.0 98.8 98.2 98.0 Pulse 94 80 89 Resp 19 19 21 B/P (MAP) 128/60 (82) 127/77 (94) 153/89 (110) Pulse Ox 96 95 97 O2 Delivery Room Air Room Air Room Air Room Air 03/21/20 03/21/20 03/21/20 03/21/20 02:36 07:00 08:00 08:21 Temp 98.2 98.2 Pulse 72 72 Resp 20 B/P (MAP) 159/81 (107) 159/81 Pulse Ox 97 O2 Delivery Room Air Room Air Room Air 03/21/20 03/21/20 08:21 08:22 Pulse 72 B/P (MAP) 159/81 Pulse Ox 97 O2 Delivery Room Air Intake and Output 03/20/20 03/20/20 03/21/20 15:00 23:00 07:00 Intake Total 320 ml 300 ml 650 ml Output Total 250 ml 200 ml Balance 320 ml 50 ml 450 ml Justicifation of Admission Dx: Justifications for Admission: Justification of Admission Dx: Yes Sepsis: Altered Mental Status KIRK GAMBINO MD Mar 21, 2020 10:06
[2020-03-21 11:03] VITALS: BP 135/78
[2020-03-21] MEDS: ceFAZolin SODIUM IV Push 1 GM VIAL. IVP SCH ×2 (14:09→21:01)
[2020-03-21 15:00] VITALS: BP 150/72
--- NOTE | 2020-03-21 15:52 | RAD ---
ANKLE RIGHT 3V DATE: 03/21/2020 10:55 AM INDICATION: Reason: FRACTURE, BLISTERS 256 / Spl. Instructions: / History: COMPARISON: None. FINDINGS/ IMPRESSION: Unchanged alignment of acute mildly displaced comminuted distal fibular diaphysis fracture, posterior malleolus fracture, and acute displaced medial malleolus fracture. Electronically signed by: Issac Portillo MD (03/21/2020 3:49 PM) [id number]
--- NOTE | 2020-03-21 18:55 | CONS ---
DATE OF CONSULTATION: 03/21/2020 REFERRING PHYSICIAN: Dr. Quintana. REASON FOR CONSULTATION: Blisters at the fracture site, possible infection. HISTORY OF PRESENT ILLNESS: A 64-year-old female who presented to the ER with complaints of right ankle pain after sustaining a mechanical fall at the [place]. She fell twisting her ankle sideways. She denies any fevers, chills, nausea, vomiting, diarrhea, or abdominal pain. White count was normal. Hemoglobin was 13.5, platelets of 289, creatinine of 1.0. Procalcitonin of less than 0.10. She underwent ankle x-ray, which showed a trimalleolar fracture as described above. Chest x-ray was negative. She underwent COVID test which was negative. She was scheduled for surgery on 03/19/2020, which was canceled as the patient was found to have blisters at the surgical site. Blisters were popped on 03/20. Another blister was incised. We started the patient on Cam walker. They discontinued the current splint. The patient was started on cefazolin by Dr. Quintana today. ID consult has been requested for further evaluation and treatment. The patient states pain is better since she has come off the cast, which had been there since last Monday. Cam walker is helping. Denies any fevers, chills, headache, sore throat, difficulty swallowing, nausea, vomiting, diarrhea, abdominal pain, symptoms, rash, other joint pain, or sick contact. PAST MEDICAL HISTORY: Diabetes, hypertension, history of kidney stone, history of benign tumor in the uterus, breast biopsy, and lithotripsy. SOCIAL HISTORY: Denies smoking, ETOH, or illicit drug use. Lives with family. FAMILY HISTORY: As per HPI. SOCIAL HISTORY: No smoking, ETOH, or illicit drug use. ALLERGIES: No known drug allergies. CURRENT MEDICATIONS: Cefazolin. Other medications reviewed in medication list. REVIEW OF SYSTEMS: Negative except for above in HPI. PHYSICAL EXAMINATION: VITAL SIGNS: Temperature 98.4, pulse 78, respiratory rate 20, blood pressure 135/78, and oxygen saturation 99% on room air. GENERAL: Alert, oriented x 3, pleasant female, lying in bed comfortably, in no acute distress. HEENT: Normocephalic, atraumatic, anicteric. No thrush. NECK: Supple, no JVD. LUNGS: Clear bilaterally. No wheezing. HEART: S1, S2. No gallops or murmurs. ABDOMEN: Soft, obese. Bowel sounds present, nontender, nondistended. EXTREMITIES: Right lower extremity swollen, mainly around the ankle with purplish bruising, likely from underlying hematoma and blisters around the ankle, which have been incised medially, anteriorly and lateral posterior with no fluctuance, blackened skin, likely from previous blister. No underlying fluctuance, no warmth. Mild tenderness, which is from the ankle fracture. NEUROLOGIC: Alert and oriented x 3, grossly nonfocal. PSYCHIATRIC: Cooperative, appropriate mood and affect. DERMATOLOGIC: No generalized rash except for above. LABORATORY DATA: WBC 6.9, hemoglobin 12.3, hematocrit 37.5, and platelets 246. Sodium 135, potassium 3.7, chloride 103, bicarbonate 25, BUN 18, creatinine 1.0, and glucose 125. Procalcitonin less than 0.10. INR 1.0. SARS COVID negative. MICRO: None. IMPRESSION: 1. Fracture blisters around right ankle fracture.Appears to be mechanical in nature from cast, No evidence of secondary bacterial infection at this point 2. History of mechanical fall. 3. Diabetes mellitus. 4. Hypertension. RECOMMENDATIONS: Continue cefazolin for now. Local wound care as directed. Activity in cam walker usage instructions per Ortho. Follow-up labs and cultures. Continue supportive care.. Patient is awaiting surgery by orthopedics in the near future. Pain control per primary.. Thank you for allowing me to participate in this patient's care. If you have any questions do not hesitate to contact me. Discussed with nursing staff at bedside. BECKY
[2020-03-21 19:16] VITALS: BP 140/85
[2020-03-21] MEDS: LACTOBACILLUS RHAMNOSUS GG 1 CAPSULE. PO SCH (21:01)
[2020-03-21 22:22] VITALS: BP_SYST 147
[2020-03-22] MEDS: oxyCODONE/APAP 5/325 1 TAB TABLET PO PRN ×5 (02:03→19:35)
[2020-03-22 02:52] VITALS: BP 143/66
[2020-03-22] MEDS: ceFAZolin SODIUM IV Push 1 GM VIAL. IVP SCH ×3 (05:30→21:02)
[2020-03-22 06:47] VITALS: BP 154/87
[2020-03-22] MEDS: INSULIN LISPRO 300 UNITS/3 ML VIAL. SQ SCH ×3 (08:00→17:00)
[2020-03-22] MEDS: LINAGLIPTIN 5 MG TABLET PO SCH (08:28)
[2020-03-22] MEDS: LACTOBACILLUS RHAMNOSUS GG 1 CAPSULE. PO SCH ×2 (08:28→21:01)
[2020-03-22] MEDS: amLODIPine BESYLATE 10 MG TABLET PO SCH (08:29)
[2020-03-22] MEDS: hydroCHLOROthiazide 25 MG TABLET PO SCH (08:29)
[2020-03-22] MEDS: POTASSIUM CHLORIDE 20 MEQ TABLET.ER. PO SCH ×2 (08:29)
[2020-03-22] MEDS: ENOXAPARIN 40 MG/0.4 ML SYRINGE. SQ SCH (08:29)
[2020-03-22] MEDS: LOSARTAN POTASSIUM 50 MG TABLET. PO SCH (08:30)
--- NOTE | 2020-03-22 10:15 | PDOC ---
Infectious Disease Note Vital Signs: Vital Signs Vital Signs Date Time Temp Pulse Resp B/P (MAP) Pulse Ox O2 Delivery O2 Flow Rate FiO2 03/22/20 10:08 16 97 Room Air 03/22/20 08:30 74 154/87 03/22/20 06:47 98.1 98.1 Physical Exam: PHYSICAL EXAM GENERAL: Alert, oriented x 3, pleasant female, lying in bed comfortably, in no acute distress. HEENT: Normocephalic, atraumatic, anicteric. No thrush. NECK: Supple, no JVD. LUNGS: Clear bilaterally. No wheezing. HEART: S1, S2. No gallops or murmurs. ABDOMEN: Soft, obese. Bowel sounds present, nontender, nondistended. EXTREMITIES: Right lower extremity swollen, mainly around the ankle with purplish bruising, likely from underlying hematoma and blisters around the ankle, which have been incised medially, anteriorly and lateral posterior with no fluctuance, blackened skin, likely from previous blister. No underlying fluctuance, no warmth. Mild tenderness, which is from the ankle fracture. NEUROLOGIC: Alert and oriented x 3, grossly nonfocal. PSYCHIATRIC: Cooperative, appropriate mood and affect. DERMATOLOGIC: No generalized rash except for above. Medications: Inpatient Meds: Current Medications Medications (Trade) Dose Ordered Sig/Taisha Start Time Stop Time Status Last Admin Dose Admin Acetaminophen (Tylenol) 650 mg PRN Q4HRS PRN 03/18/20 10:00 Al Hydroxide/Mg Hydroxide (Mylanta Plus Xs) 30 ml PRN DAILY PRN 03/18/20 10:00 Albuterol Sulfate (Ventolin Neb Soln) 2.5 mg PRN Q4HRS PRN 03/18/20 10:00 Amlodipine Besylate (Norvasc) 10 mg DAILY 03/19/20 09:00 UNV Bupivacaine HCl/ Epinephrine Bitart (Sensorcaine-Epi 0.25%-1:271834 Mpf) 30 ml 1X ONCE 03/19/20 08:00 03/19/20 08:01 DC Cefazolin Sodium (Ancef) 1 gm Q8HRS 03/21/20 14:00 03/22/20 05:30 1 GM Cefazolin Sodium/ Dextrose (Ancef 2gm Premix) 2 gm STK-MED ONCE 03/19/20 15:00 03/20/20 15:20 DC Dextrose (Dextrose 50%-Water Syringe) 12.5 gm PRN Q15MIN PRN 03/18/20 10:00 Docusate Sodium (Colace) 100 mg PRN BID PRN 03/18/20 10:00 Enoxaparin Sodium (Lovenox 40mg Syringe) 40 mg Q24H 03/18/20 10:00 03/22/20 08:29 40 MG Fentanyl Citrate (Fentanyl 2ml Vial) 50 mcg PRN Q5MIN PRN 03/19/20 11:30 03/20/20 11:29 DC Guaifenesin (Robitussin) 200 mg PRN Q4HRS PRN 03/18/20 10:00 Hydrochlorothiazide (Hydrodiuril) 25 mg DAILY 03/18/20 10:00 03/22/20 08:29 25 MG Hydromorphone HCl (Dilaudid) 0.5 mg PRN Q10MIN PRN 03/19/20 11:30 03/20/20 11:29 DC Insulin Human Lispro (HumaLOG VIAL for OP,RR ONLY) 0-10 units PRN Q1HR PRN 03/19/20 11:30 03/20/20 11:29 DC Insulin Human Lispro (HumaLOG) 0-5 UNITS TIDWMEALS 03/18/20 12:00 Ketorolac Tromethamine (Toradol 30mg Vial) 15 mg Q6HRS 03/19/20 13:00 03/20/20 06:01 DC 03/20/20 05:41 15 MG Lactobacillus Rhamnosus (Culturelle) 1 cap BID 03/21/20 21:00 03/22/20 08:28 1 CAP Lidocaine HCl (Lidocaine Pf 2% Vial) 5 ml STK-MED ONCE 03/19/20 12:20 03/19/20 12:21 DC Linagliptin (Tradjenta) 5 mg DAILY 03/18/20 10:00 03/22/20 08:28 5 MG Lorazepam (Ativan) 0.5 mg PRN Q4HRS PRN 03/18/20 10:00 Losartan Potassium (Cozaar) 100 mg DAILY 03/18/20 10:00 03/22/20 08:30 100 MG Metoprolol Tartrate (Lopressor Vial) 10 mg PRN Q6HRS PRN 03/19/20 09:45 Morphine Sulfate (Morphine Sulfate) 1 mg PRN Q10MIN PRN 03/19/20 11:30 03/20/20 11:29 DC 03/19/20 13:03 1 MG Non-Formulary Medication (Hydrochlorothiazide (Hydrochlorothiazide Tablet)) 25 mg DAILY 03/19/20 09:00 UNV Non-Formulary Medication (Olmesartan Medoxomil (Benicar)) 40 mg DAILY 03/19/20 09:00 UNV Ondansetron HCl (Zofran) 4 mg STK-MED ONCE 03/19/20 12:09 03/19/20 12:09 DC Oxycodone/ Acetaminophen (Percocet 5/325) 2 tab PRN Q4HRS PRN 03/19/20 12:45 03/22/20 10:08 2 TAB Potassium Chloride (Klor-Con) 20 meq DAILYWBKFT 03/21/20 08:00 03/22/20 08:29 20 MEQ Prochlorperazine Edisylate (Compazine) 5 mg PACU PRN PRN 03/19/20 11:30 03/20/20 11:29 DC Propofol (Diprivan) 200 mg STK-MED ONCE 03/19/20 12:20 03/19/20 12:21 DC Ringer's Solution 1,000 ml @ 30 mls/hr Q24H 03/19/20 11:16 03/19/20 15:08 DC Sevoflurane (Ultane) 15 ml STK-MED ONCE 03/19/20 12:20 03/19/20 12:21 DC Sodium Monofluorophosphate (Fleet Adult) 133 ml PRN DAILY PRN 03/18/20 10:00 Sodium Chloride 1,000 ml @ 100 mls/hr Q10H 03/18/20 09:47 03/20/20 18:09 DC 03/20/20 00:16 100 MLS/HR Sodium Chloride (Normal Saline Flush) 3 ml QSHIFT PRN 03/18/20 10:00 Labs: Lab Laboratory Tests Test 03/21/20 11:26 03/21/20 16:26 03/21/20 21:15 03/22/20 08:04 Glucose (Fingerstick) 143 mg/dL (70-99) 103 mg/dL (70-99) 120 mg/dL (70-99) 88 mg/dL (70-99) Objective: Assessment: 1. Fracture blisters around right ankle fracture.Appears to be mechanical in nature from cast, No evidence of secondary bacterial infection at this time 2. History of mechanical fall. 3. Diabetes mellitus. 4. Hypertension. Plan: Plan of Care Continue cefazolin for now. Local wound care as directed. Activity in cam walker usage instructions per Ortho. Follow-up labs and cultures. Continue supportive care.. Patient is awaiting surgery by orthopedics in the near future. Pain control per primary.. Discussed with at bedside ZHANNA TONY MD Mar 22, 2020 10:15
--- NOTE | 2020-03-22 10:18 | PDOC ---
PROGRESS NOTES Date of Service: DATE: 03/22/20 TIME: 10:18 Chief Complaint Chief Complaint VTE Prophylaxis Ordered VTE Prophylaxis Devices: No VTE Pharmacological Prophylaxi: Yes Assessment/Plan Assessment/Plan IMPRESSION: Trimalleolar fracture OF right ankle, ACUTE MECHANICAL FALL MORBID OBESITY Mild to moderate tricuspid regurgitation. hypertension Diabetes hypokalemia, on replacement FRACTURE BLISTERS medial blister is 12 cm x 5 cm. The anterior blister over the anterolateral joint is 5 cm x 4 cm. lateral posterior lateral fibular area is 9 cm x 5 cm. anteromedial ankle joint which is a blackened color and perhaps is a ruptured hemorrhagic blister is 3 cm x 1.5 cm. plan ADMIT ORTHO CONSULT IV PAIN CONTROL NPO COVID SCREEN home meds accuchecks replace k Due to size of bullae and associated pain, bullae incised at bedside. BY WOUND CARE NURSES CONT IV ANCEF Q 8 HRS D/W RN 10-10 MAY NEED SNF, consult wound care nurse 27 min pt exam, chart review, > 50% of time spent with exam, chart review, pt care coordination History of Present Illness History of Present Illness Identification/Chief Complaint Chief Complaint SEEN IN er after fall, twisting of right ankle 64-year-old female , complaining of severe right ankle pain. Patient fell twisting her ankle sideways. xray c/w trimalleolar fracture, FELL AT THE WHYTE DENIES CHEST PAIN Was wearing tennis shoes, slipped Past Medical History Past Medical History Past Medical History Past Medical History: Diabetes-Type II, Hypertension, Kidney Stone, Other Additional Past Medical Histor: BENIGN TUMORS IN UTERUS Past Surgical History: Other Additional Past Surgical Histo: BIOPSIES BREAST,LITHOTRIPSY Smoking Status: Never Smoker Alcohol Use: None Drug Use: None FHX OBESITY, HTN Cardiovascular: HTN Heme/Onc: No pertinent hx Family History Family History: Hypertension Social History Smoke: No ALCOHOL: none Drugs: None Current Problem List Problem List Problems Medical Problems: (1) Trimalleolar fracture of ankle, closed Status: Acute Vitals Vitals Vital Signs Date Time Temp Pulse Resp B/P (MAP) Pulse Ox O2 Delivery O2 Flow Rate FiO2 03/22/20 10:08 16 97 Room Air 03/22/20 08:30 74 154/87 03/22/20 06:47 98.1 98.1 Physical Exam Physical Exam GENERAL: Alert, oriented x 3, pleasant female, lying in bed comfortably, in no acute distress. HEENT: Normocephalic, atraumatic, anicteric. No thrush. NECK: Supple, no JVD. LUNGS: Clear bilaterally. No wheezing. HEART: S1, S2. No gallops or murmurs. ABDOMEN: Soft, obese. Bowel sounds present, nontender, nondistended. EXTREMITIES: Right lower extremity swollen, mainly around the ankle with purplish bruising, likely from underlying hematoma and blisters around the ankle, which have been incised medially, anteriorly and lateral posterior with no fluctuance, blackened skin, likely from previous blister. No underlying fluctuance, no warmth. Mild tenderness, which is from the ankle fracture. NEUROLOGIC: Alert and oriented x 3, grossly nonfocal. PSYCHIATRIC: Cooperative, appropriate mood and affect. DERMATOLOGIC: No generalized rash except for above. General: Alert, Oriented X3, Cooperative, No acute distress Heart: Regular rate, Normal S1, Normal S2 Lungs: Clear Abdomen: Normal bowel sounds, Soft, No tenderness Extremities: No clubbing, No cyanosis, Other (Patient is unable to weight bear on the right ankle. The overall alignment is swollen and slightly grossly enlarged at the joint with a splint intact. There is focal tenderness of the distal fibula at the fracture site. There is tenderness at the medial malleolus and at the syndesmosis ligaments. Motor strength is decreased mobility due to pain with no focal neurologic deficit. She has the ability to dorsiflex and plantarflex the big toe and lesser toes, and intact sensation and capillary refill. I do not detect any diabetic neuropathy with light touch sensation examination of both feet.) Labs LABS Laboratory Tests Test 03/21/20 11:26 03/21/20 16:26 03/21/20 21:15 03/22/20 08:04 Glucose (Fingerstick) 143 mg/dL (70-99) 103 mg/dL (70-99) 120 mg/dL (70-99) 88 mg/dL (70-99) Assessment and Plan Assessmemt and Plan Problems Medical Problems: (1) Blister (nonthermal), right lower leg, initial encounter Status: Acute (2) Displaced trimalleolar fracture of right lower leg, initial encounter for closed fracture Status: Acute (3) Trimalleolar fracture of ankle, closed Status: Acute Comment Review of Relevant I have reviewed the following items oracio (where applicable) has been applied. Labs Laboratory Tests Test 03/20/20 11:59 03/20/20 17:15 03/20/20 20:22 03/21/20 04:30 Glucose (Fingerstick) 116 mg/dL (70-99) 92 mg/dL (70-99) 175 mg/dL (70-99) Sodium Level 135 mmol/L (136-145) Potassium Level 3.7 mmol/L (3.5-5.1) Chloride Level 103 mmol/L (98-107) Carbon Dioxide Level 25 mmol/L (21-32) Anion Gap 7 (6-14) Blood Urea Nitrogen 18 mg/dL (7-20) Creatinine 1.0 mg/dL (0.6-1.0) Estimated GFR (Cockcroft-Gault) 67.1 Glucose Level 125 mg/dL (70-99) Calcium Level 8.7 mg/dL (8.5-10.1) Procalcitonin < 0.10 ng/mL (0.00-0.10) Test 03/21/20 07:19 03/21/20 11:26 03/21/20 16:26 03/21/20 21:15 Glucose (Fingerstick) 97 mg/dL (70-99) 143 mg/dL (70-99) 103 mg/dL (70-99) 120 mg/dL (70-99) Test 03/22/20 08:04 Glucose (Fingerstick) 88 mg/dL (70-99) Laboratory Tests Test 03/21/20 11:26 03/21/20 16:26 03/21/20 21:15 03/22/20 08:04 Glucose (Fingerstick) 143 mg/dL (70-99) 103 mg/dL (70-99) 120 mg/dL (70-99) 88 mg/dL (70-99) Medications Current Medications Morphine Sulfate (Morphine Sulfate) 5 mg 1X ONCE IV Last administered on 03/17/20at 22:58; Start 03/17/20 at 22:15; Stop 03/17/20 at 22:16; Status DC Hydromorphone HCl (Dilaudid) 1 mg PRN Q4HRS PRN IVP SEVERE PAIN 7-10; Start 03/18/20 at 00:45; Stop 03/18/20 at 00:42; Status DC Hydromorphone HCl (Dilaudid) 1 mg PRN Q6HRS PRN IVP SEVERE PAIN 7-10 Last administered on 03/19/20 08:26; Start 03/18/20 at 00:45; Stop 03/19/20 at 09:12; Status DC Sodium Chloride 1,000 ml @ 100 mls/hr Q10H IV Last administered on 03/18/20at 09:04; Start 03/18/20 at 01:00; Stop 03/18/20 at 09:56; Status DC Fentanyl Citrate (Fentanyl 2ml Vial) 50 mcg PRN Q3HRS PRN IVP SEVERE PAIN, 1ST CHOICE Last administered on 03/19/20at 05:58; Start 03/18/20 at 04:15 Amlodipine Besylate (Norvasc) 10 mg DAILY PO Last administered on 03/22/20 08:29; Start 03/18/20 at 10:00 Amlodipine Besylate (Norvasc) 10 mg DAILY PO ; Start 03/19/20 at 09:00; Status UNV Hydrochlorothiazide (Hydrodiuril) 25 mg DAILY PO Last administered on 03/22/20 08:29; Start 03/18/20 at 10:00 Non-Formulary Medication (Hydrochlorothiazide (Hydrochlorothiazide Tablet)) 25 mg DAILY PO ; Start 03/19/20 at 09:00; Status UNV Losartan Potassium (Cozaar) 100 mg DAILY PO Last administered on 03/22/20 08:30; Start 03/18/20 at 10:00 Non-Formulary Medication (Olmesartan Medoxomil (Benicar)) 40 mg DAILY PO ; Start 03/19/20 at 09:00; Status UNV Linagliptin (Tradjenta) 5 mg DAILY PO Last administered on 03/22/20 08:28; Start 03/18/20 at 10:00 Potassium Chloride (Klor-Con) 40 meq 1X ONCE PO Last administered on 03/18/20at 14:01; Start 03/18/20 at 10:00; Stop 03/18/20 at 10:01; Status DC Potassium Chloride (Klor-Con) 20 meq DAILYWBKFT PO Last administered on 10/11/20at 08:29; Start 03/19/20 at 08:00 Sodium Chloride (Normal Saline Flush) 3 ml QSHIFT PRN IV AFTER MEDS AND BLOOD DRAWS; Start 03/18/20 at 10:00 Sodium Chloride 1,000 ml @ 100 mls/hr Q10H IV Last administered on 03/20/20at 00:16; Start 03/18/20 at 09:47; Stop 03/20/20 at 18:09; Status DC Ondansetron HCl (Zofran) 4 mg PRN Q4HRS PRN IV NAUSEA/VOMITING; Start 03/18/20 at 10:00 Acetaminophen (Tylenol) 650 mg PRN Q4HRS PRN PO TEMP OVER 100.4F; Start 03/18/20 at 10:00 Al Hydroxide/Mg Hydroxide (Mylanta Plus Xs) 30 ml PRN DAILY PRN PO HEARTBURN / GAS; Start 03/18/20 at 10:00 Sodium Monofluorophosphate (Fleet Adult) 133 ml PRN DAILY PRN [place] CONSTIPATION; Start 03/18/20 at 10:00 Docusate Sodium (Colace) 100 mg PRN BID PRN PO HARD STOOLS; Start 03/18/20 at 10:00 Albuterol Sulfate (Ventolin Neb Soln) 2.5 mg PRN Q4HRS PRN NEB SHORTNESS OF BREATH; Start 03/18/20 at 10:00 Guaifenesin (Robitussin) 200 mg PRN Q4HRS PRN PO COUGH; Start 03/18/20 at 10:00 Lorazepam (Ativan) 0.5 mg PRN Q4HRS PRN PO ANXIETY / AGITATION; Start 03/18/20 at 10:00 Hydromorphone HCl (Dilaudid) 0.6 mg PRN Q2HRS PRN IV PAIN MODERATE; Start 03/18/20 at 10:00 Enoxaparin Sodium (Lovenox 40mg Syringe) 40 mg Q24H SQ Last administered on 03/22/20at 08:29; Start 03/18/20 at 10:00 Insulin Human Lispro (HumaLOG) 0-5 UNITS TIDWMEALS SQ ; Start 03/18/20 at 12:00 Dextrose (Dextrose 50%-Water Syringe) 12.5 gm PRN Q15MIN PRN IV SEE COMMENTS; Start 03/18/20 at 10:00 Metoprolol Tartrate (Lopressor Vial) 5 mg PRN Q6HRS PRN IVP ELEVATED BP, SEE COMMENTS Last administered on 03/19/20at 01:21; Start 03/18/20 at 10:00; Stop 03/19/20 at 09:43; Status DC Bupivacaine HCl/ Epinephrine Bitart (Sensorcaine-Epi 0.25%-1:137704 Mpf) 30 ml 1X ONCE INJ ; Start 03/19/20 at 08:00; Stop 03/19/20 at 08:01; Status DC Cefazolin Sodium/ Dextrose 50 ml @ 100 mls/hr 1X PREOP PRN IV SEE COMMENTS; Start 03/19/20 at 12:00; Stop 03/21/20 at 11:06; Status DC Potassium Chloride (Klor-Con) 40 meq 1X ONCE PO Last administered on 03/19/20at 14:00; Start 03/19/20 at 10:30; Stop 03/19/20 at 10:31; Status DC Metoprolol Tartrate (Lopressor Vial) 10 mg PRN Q6HRS PRN IVP ELEVATED BP, SEE COMMENTS; Start 03/19/20 at 09:45 Fentanyl Citrate (Fentanyl 2ml Vial) 25 mcg PRN Q5MIN PRN IV MILD PAIN 1-3; Start 03/19/20 at 11:30; Stop 03/20/20 at 11:29; Status DC Fentanyl Citrate (Fentanyl 2ml Vial) 50 mcg PRN Q5MIN PRN IV MODERATE TO SEVERE PAIN; Start 03/19/20 at 11:30; Stop 03/20/20 at 11:29; Status DC Morphine Sulfate (Morphine Sulfate) 1 mg PRN Q10MIN PRN IV SEVERE PAIN 7-10 Last administered on 03/19/20at 13:03; Start 03/19/20 at 11:30; Stop 03/20/20 at 11:29; Status DC Ringer's Solution 1,000 ml @ 30 mls/hr Q24H IV ; Start 03/19/20 at 11:16; Stop 03/19/20 at 15:08; Status DC Hydromorphone HCl (Dilaudid) 0.5 mg PRN Q10MIN PRN IV SEV PAIN, Second choice; Start 03/19/20 at 11:30; Stop 03/20/20 at 11:29; Status DC Prochlorperazine Edisylate (Compazine) 5 mg PACU PRN PRN IV NAUSEA, MRX1; Start 03/19/20 at 11:30; Stop 03/20/20 at 11:29; Status DC Insulin Human Lispro (HumaLOG VIAL for OP,RR ONLY) 0-10 units PRN Q1HR PRN SQ PER PROTOCOL; Start 03/19/20 at 11:30; Stop 03/20/20 at 11:29; Status DC Ondansetron HCl (Zofran) 4 mg STK-MED ONCE .ROUTE ; Start 03/19/20 at 12:09; Stop 03/19/20 at 12:09; Status DC Lidocaine HCl (Lidocaine Pf 2% Vial) 5 ml STK-MED ONCE .ROUTE ; Start 03/19/20 at 12:20; Stop 03/19/20 at 12:21; Status DC Propofol (Diprivan) 200 mg STK-MED ONCE IV ; Start 03/19/20 at 12:20; Stop 03/19/20 at 12:21; Status DC Sevoflurane (Ultane) 15 ml STK-MED ONCE IH ; Start 03/19/20 at 12:20; Stop 03/19/20 at 12:21; Status DC Ketorolac Tromethamine (Toradol 30mg Vial) 15 mg Q6HRS IVP Last administered on 03/20/20at 05:41; Start 03/19/20 at 13:00; Stop 03/20/20 at 06:01; Status DC Oxycodone/ Acetaminophen (Percocet 5/325) 1 tab PRN Q4HRS PRN PO PAIN; Start 03/19/20 at 12:45 Oxycodone/ Acetaminophen (Percocet 5/325) 2 tab PRN Q4HRS PRN PO PAIN Last administered on 03/22/20at 10:08; Start 03/19/20 at 12:45 Potassium Chloride (Klor-Con) 40 meq 1X ONCE PO Last administered on 03/20/20at 12:55; Start 03/20/20 at 12:15; Stop 03/20/20 at 12:19; Status DC Potassium Chloride (Klor-Con) 20 meq DAILYWBKFT PO Last administered on 03/22/20at 08:29; Start 03/21/20 at 08:00 Cefazolin Sodium/ Dextrose (Ancef 2gm Premix) 2 gm STK-MED ONCE IV ; Start 03/19/20 at 15:00; Stop 03/20/20 at 15:20; Status DC Cefazolin Sodium (Ancef) 1 gm Q8HRS IVP Last administered on 03/22/20at 05:30; Start 03/21/20 at 14:00 Lactobacillus Rhamnosus (Culturelle) 1 cap BID PO Last administered on 03/22/20at 08:28; Start 03/21/20 at 21:00 Active Scripts Active Hydrocodone-Apap 5-325 (Hydrocodone Bit/Acetaminophen) 1 Tab Tablet 1 Tab PO PRN Q8HRS PRN Reported Hydrochlorothiazide 25 Mg Tablet 1 Tab PO DAILY Januvia (Sitagliptin Phosphate) 100 Mg Tablet 1 Tab PO DAILY Losartan Potassium 100 Mg Tablet 1 Tab PO DAILY Amlodipine Besylate 10 Mg Tablet 1 Tab PO DAILY Metformin Hcl Er (Metformin Hcl) 750 Mg Tab.er.24h 750 Mg PO DAILYWBKFT Benicar (Olmesartan Medoxomil) 40 Mg Tablet 40 Mg PO DAILY Hydrochlorothiazide Tablet (Hydrochlorothiazide) 50 Mg Tablet 25 Mg PO DAILY Norvasc (Amlodipine Besylate) 10 Mg Tablet 10 Mg PO DAILY Vitals/I & O Vital Sign - Last 24 Hours 03/21/20 03/21/20 03/21/20 03/21/20 11:03 15:00 16:35 17:35 Temp 98.4 98.7 98.4 98.7 Pulse 78 94 Resp 20 B/P (MAP) 135/78 (97) 150/72 (98) Pulse Ox 99 98 98 98 O2 Delivery Room Air Room Air Room Air Room Air 03/21/20 03/21/20 03/21/20 03/21/20 19:16 19:52 21:01 22:01 Temp 98.8 98.8 Pulse 97 Resp 18 20 B/P (MAP) 140/85 (103) Pulse Ox 95 O2 Delivery Room Air Room Air Room Air 03/21/20 03/22/20 03/22/20 03/22/20 22:22 02:03 02:52 03:03 Temp 98.7 98.3 98.7 98.3 Pulse 80 77 Resp 16 20 16 18 B/P (MAP) 147/ 143/66 (91) Pulse Ox 95 95 O2 Delivery Room Air Room Air Room Air 03/22/20 03/22/20 03/22/20 03/22/20 05:32 06:32 06:47 08:29 Temp 98.1 98.1 Pulse 74 74 Resp 20 18 16 B/P (MAP) 154/87 (109) 154/87 Pulse Ox 97 O2 Delivery Room Air Room Air 03/22/20 03/22/20 08:30 10:08 Pulse 74 Resp 16 B/P (MAP) 154/87 Pulse Ox 97 O2 Delivery Room Air Intake and Output 03/21/20 03/21/20 03/22/20 15:00 23:00 07:00 Intake Total 480 ml 0 ml 600 ml Balance 480 ml 0 ml 600 ml Justicifation of Admission Dx: Justifications for Admission: Justification of Admission Dx: Yes Sepsis: Altered Mental Status KIRK GAMBINO MD Mar 22, 2020 10:18
[2020-03-22 11:27] VITALS: BP 153/84
[2020-03-22 15:52] VITALS: BP 142/74
[2020-03-22 19:51] VITALS: BP 147/80
[2020-03-22 23:52] VITALS: BP 135/91
[2020-03-23 03:42] VITALS: BP 138/79
[2020-03-23] MEDS: oxyCODONE/APAP 5/325 1 TAB TABLET PO PRN ×3 (03:52→21:05)
[2020-03-23] MEDS: ceFAZolin SODIUM IV Push 1 GM VIAL. IVP SCH ×3 (05:05→21:05)
[2020-03-23 07:55] VITALS: BP 177/96
[2020-03-23] MEDS: POTASSIUM CHLORIDE 20 MEQ TABLET.ER. PO SCH ×2 (08:00→09:30)
[2020-03-23] MEDS: INSULIN LISPRO 300 UNITS/3 ML VIAL. SQ SCH ×3 (08:00→17:00)
--- NOTE | 2020-03-23 08:01 | PDOC ---
Infectious Disease Note Subjective Subjective Pt is feeling ok, no new complaints ROS ROS no n/v/d/sob Vital Sign Vital Signs Vital Signs Date Time Temp Pulse Resp B/P (MAP) Pulse Ox O2 Delivery O2 Flow Rate FiO2 03/23/20 04:52 18 Room Air 03/23/20 03:42 98.8 85 138/79 (98) 96 98.8 03/22/20 14:00 10.0 Physical Exam PHYSICAL EXAM GENERAL: Alert, oriented x 3, pleasant female, lying in bed comfortably, in no acute distress. HEENT: Normocephalic, atraumatic, anicteric. No thrush. NECK: Supple, no JVD. LUNGS: Clear bilaterally. No wheezing. HEART: S1, S2. No gallops or murmurs. ABDOMEN: Soft, obese. Bowel sounds present, nontender, nondistended. EXTREMITIES: Right lower extremity swollen, mainly around the ankle with purplish bruising, likely from underlying hematoma and blisters around the ankle, which have been incised medially, anteriorly and lateral posterior with no fluctuance, blackened skin, likely from previous blister. No underlying fluctuance, no warmth. Mild tenderness, which is from the ankle fracture. NEUROLOGIC: Alert and oriented x 3, grossly nonfocal. PSYCHIATRIC: Cooperative, appropriate mood and affect. DERMATOLOGIC: No generalized rash except for above. Labs Lab Laboratory Tests Test 03/22/20 08:04 03/22/20 12:05 03/22/20 17:18 03/22/20 20:48 Glucose (Fingerstick) 88 mg/dL (70-99) 134 mg/dL (70-99) 84 mg/dL (70-99) 148 mg/dL (70-99) Objective Assessment 1. Fracture blisters around right ankle fracture.Appears to be mechanical in nature from cast, No evidence of secondary bacterial infection at this time 2. History of mechanical fall. 3. Diabetes mellitus. 4. Hypertension. Plan Plan of Care Continue cefazolin for now. Local wound care as directed. Activity in cam walker usage instructions per Ortho. Follow-up labs and cultures. Continue supportive care.. Patient is awaiting surgery by orthopedics in the near future. Pain control per primary.. MADONNA TONY MD Mar 23, 2020 08:01
[2020-03-23] MEDS: hydroCHLOROthiazide 25 MG TABLET PO SCH (09:27)
[2020-03-23] MEDS: LOSARTAN POTASSIUM 50 MG TABLET. PO SCH (09:28)
[2020-03-23] MEDS: ENOXAPARIN 40 MG/0.4 ML SYRINGE. SQ SCH (09:29)
[2020-03-23] MEDS: LINAGLIPTIN 5 MG TABLET PO SCH (09:30)
[2020-03-23] MEDS: amLODIPine BESYLATE 10 MG TABLET PO SCH (09:31)
[2020-03-23] MEDS: LACTOBACILLUS RHAMNOSUS GG 1 CAPSULE. PO SCH ×2 (09:31→21:05)
[2020-03-23 11:04] VITALS: BP 147/86
--- NOTE | 2020-03-23 11:36 | PDOC ---
PROGRESS NOTES Date of Service: DATE: 03/23/20 TIME: 11:19 Chief Complaint Chief Complaint VTE Prophylaxis Ordered VTE Prophylaxis Devices: No VTE Pharmacological Prophylaxi: Yes Trimalleolar fracture OF right ankle after fall, twisting of right ankle FRACTURE BLISTERS medial blister is 12 cm x 5 cm. The anterior blister over the anterolateral joint is 5 cm x 4 cm. lateral posterior lateral fibular area is 9 cm x 5 cm. anteromedial ankle joint which is a blackened color and perhaps is a ruptured hemorrhagic blister is 3 cm x 1.5 cm. History of Present Illness History of Present Illness Identification/Chief Complaint 03/23/20 Pt seen and examined bedside DW RN who was redressing her wound DW daughter Discussed with case management Vitals Vitals Vital Signs Date Time Temp Pulse Resp B/P (MAP) Pulse Ox O2 Delivery O2 Flow Rate FiO2 03/23/20 11:04 98.0 90 18 147/86 (106) 96 Room Air 98.0 03/22/20 14:00 10.0 Physical Exam Physical Exam GENERAL: Alert, oriented x 3, pleasant female, lying in bed comfortably, in no acute distress. HEENT: Normocephalic, atraumatic, anicteric. No thrush. NECK: Supple, no JVD. LUNGS: Clear bilaterally. No wheezing. HEART: S1, S2. No gallops or murmurs. ABDOMEN: Soft, obese. Bowel sounds present, nontender, nondistended. EXTREMITIES: Right lower extremity swollen, mainly around the ankle with purplish bruising, likely from underlying hematoma and blisters around the ankle, which have been incised medially, anteriorly and lateral posterior with no fluctuance, blackened skin, likely from previous blister. No underlying fluctuance, no warmth. Mild tenderness, which is from the ankle fracture. NEUROLOGIC: Alert and oriented x 3, grossly nonfocal. PSYCHIATRIC: Cooperative, appropriate mood and affect. DERMATOLOGIC: No generalized rash except for above. General: Alert, Oriented X3, Cooperative, No acute distress, Other Heart: Regular rate, Normal S1, Normal S2, No murmurs Lungs: Clear Abdomen: Normal bowel sounds, Soft, No tenderness Extremities: No clubbing, No cyanosis, Other (Edematous right lower extremity with blisters noted) Skin: Other (Blisters on right ankle) Labs LABS Laboratory Tests Test 03/22/20 12:05 10/11/20 17:18 03/22/20 20:48 03/23/20 08:07 Glucose (Fingerstick) 134 mg/dL (70-99) 84 mg/dL (70-99) 148 mg/dL (70-99) 81 mg/dL (70-99) Review of Systems Review of Systems c/o pain in rt ankle c/o blisters Assessment and Plan Assessmemt and Plan Problems Medical Problems: (1) Blister (nonthermal), right lower leg, initial encounter Status: Acute (2) Displaced trimalleolar fracture of right lower leg, initial encounter for closed fracture Status: Acute (3) Trimalleolar fracture of ankle, closed Status: Acute Trimalleolar fracture Trauma blisters Plan I called Dr. Sujit Roberson he plans to do surgery in about a week (a total of 2 weeks after the injury Continue wound care of the trauma blisters IV PAIN CONTROL Maintain communication with daughter regarding care NPO home meds accuchecks replaced k IV antibiotics As needed pain meds Comment Review of Relevant I have reviewed the following items oracio (where applicable) has been applied. Labs Laboratory Tests Test 03/21/20 11:26 03/21/20 16:26 03/21/20 21:00 03/21/20 21:15 Glucose (Fingerstick) 143 mg/dL (70-99) 103 mg/dL (70-99) 120 mg/dL (70-99) Nasal Screen MRSA (PCR) Negative (NEGATIVE) Test 03/22/20 08:04 03/22/20 12:05 03/22/20 17:18 03/22/20 20:48 Glucose (Fingerstick) 88 mg/dL (70-99) 134 mg/dL (70-99) 84 mg/dL (70-99) 148 mg/dL (70-99) Test 03/23/20 08:07 Glucose (Fingerstick) 81 mg/dL (70-99) Laboratory Tests Test 03/22/20 12:05 03/22/20 17:18 03/22/20 20:48 03/23/20 08:07 Glucose (Fingerstick) 134 mg/dL (70-99) 84 mg/dL (70-99) 148 mg/dL (70-99) 81 mg/dL (70-99) Medications Current Medications Morphine Sulfate (Morphine Sulfate) 5 mg 1X ONCE IV Last administered on 03/17/20at 22:58; Start 03/17/20 at 22:15; Stop 03/17/20 at 22:16; Status DC Hydromorphone HCl (Dilaudid) 1 mg PRN Q4HRS PRN IVP SEVERE PAIN 7-10; Start 03/18/20 at 00:45; Stop 03/18/20 at 00:42; Status DC Hydromorphone HCl (Dilaudid) 1 mg PRN Q6HRS PRN IVP SEVERE PAIN 7-10 Last administered on 03/19/20at 08:26; Start 03/18/20 at 00:45; Stop 03/19/20 at 09:12; Status DC Sodium Chloride 1,000 ml @ 100 mls/hr Q10H IV Last administered on 03/18/20at 09:04; Start 03/18/20 at 01:00; Stop 03/18/20 at 09:56; Status DC Fentanyl Citrate (Fentanyl 2ml Vial) 50 mcg PRN Q3HRS PRN IVP SEVERE PAIN, 1ST CHOICE Last administered on 03/19/20at 05:58; Start 03/18/20 at 04:15 Amlodipine Besylate (Norvasc) 10 mg DAILY PO Last administered on 03/23/20at 09:31; Start 03/18/20 at 10:00 Amlodipine Besylate (Norvasc) 10 mg DAILY PO ; Start 03/19/20 at 09:00; Status UNV Hydrochlorothiazide (Hydrodiuril) 25 mg DAILY PO Last administered on 03/23/20at 09:27; Start 03/18/20 at 10:00 Non-Formulary Medication (Hydrochlorothiazide (Hydrochlorothiazide Tablet)) 25 mg DAILY PO ; Start 03/19/20 at 09:00; Status UNV Losartan Potassium (Cozaar) 100 mg DAILY PO Last administered on 03/23/20at 09:28; Start 03/18/20 at 10:00 Non-Formulary Medication (Olmesartan Medoxomil (Benicar)) 40 mg DAILY PO ; Start 03/19/20 at 09:00; Status UNV Linagliptin (Tradjenta) 5 mg DAILY PO Last administered on 03/23/20at 09:30; Start 03/18/20 at 10:00 Potassium Chloride (Klor-Con) 40 meq 1X ONCE PO Last administered on 03/18/20at 14:01; Start 03/18/20 at 10:00; Stop 03/18/20 at 10:01; Status DC Potassium Chloride (Klor-Con) 20 meq DAILYWBKFT PO Last administered on 03/23/20at 09:30; Start 03/19/20 at 08:00 Sodium Chloride (Normal Saline Flush) 3 ml QSHIFT PRN IV AFTER MEDS AND BLOOD DRAWS; Start 03/18/20 at 10:00 Sodium Chloride 1,000 ml @ 100 mls/hr Q10H IV Last administered on 03/20/20at 00:16; Start 03/18/20 at 09:47; Stop 03/20/20 at 18:09; Status DC Ondansetron HCl (Zofran) 4 mg PRN Q4HRS PRN IV NAUSEA/VOMITING; Start 03/18/20 at 10:00 Acetaminophen (Tylenol) 650 mg PRN Q4HRS PRN PO TEMP OVER 100.4F; Start 03/18/20 at 10:00 Al Hydroxide/Mg Hydroxide (Mylanta Plus Xs) 30 ml PRN DAILY PRN PO HEARTBURN / GAS Last administered on 03/23/20at 09:27; Start 03/18/20 at 10:00 Sodium Monofluorophosphate (Fleet Adult) 133 ml PRN DAILY PRN NE CONSTIPATION; Start 03/18/20 at 10:00 Docusate Sodium (Colace) 100 mg PRN BID PRN PO HARD STOOLS; Start 03/18/20 at 10:00 Albuterol Sulfate (Ventolin Neb Soln) 2.5 mg PRN Q4HRS PRN NEB SHORTNESS OF BREATH; Start 03/18/20 at 10:00 Guaifenesin (Robitussin) 200 mg PRN Q4HRS PRN PO COUGH; Start 03/18/20 at 10:00 Lorazepam (Ativan) 0.5 mg PRN Q4HRS PRN PO ANXIETY / AGITATION; Start 03/18/20 at 10:00 Hydromorphone HCl (Dilaudid) 0.6 mg PRN Q2HRS PRN IV PAIN MODERATE; Start 10/7/20 at 10:00 Enoxaparin Sodium (Lovenox 40mg Syringe) 40 mg Q24H SQ Last administered on 03/23/20at 09:29; Start 03/18/20 at 10:00 Insulin Human Lispro (HumaLOG) 0-5 UNITS TIDWMEALS SQ ; Start 03/18/20 at 12:00 Dextrose (Dextrose 50%-Water Syringe) 12.5 gm PRN Q15MIN PRN IV SEE COMMENTS; Start 03/18/20 at 10:00 Metoprolol Tartrate (Lopressor Vial) 5 mg PRN Q6HRS PRN IVP ELEVATED BP, SEE COMMENTS Last administered on 03/19/20at 01:21; Start 03/18/20 at 10:00; Stop 03/19/20 at 09:43; Status DC Bupivacaine HCl/ Epinephrine Bitart (Sensorcaine-Epi 0.25%-1:031819 Mpf) 30 ml 1X ONCE INJ ; Start 03/19/20 at 08:00; Stop 03/19/20 at 08:01; Status DC Cefazolin Sodium/ Dextrose 50 ml @ 100 mls/hr 1X PREOP PRN IV SEE COMMENTS; Start 03/19/20 at 12:00; Stop 03/21/20 at 11:06; Status DC Potassium Chloride (Klor-Con) 40 meq 1X ONCE PO Last administered on 03/19/20at 14:00; Start 03/19/20 at 10:30; Stop 03/19/20 at 10:31; Status DC Metoprolol Tartrate (Lopressor Vial) 10 mg PRN Q6HRS PRN IVP ELEVATED BP, SEE COMMENTS; Start 03/19/20 at 09:45 Fentanyl Citrate (Fentanyl 2ml Vial) 25 mcg PRN Q5MIN PRN IV MILD PAIN 1-3; Start 03/19/20 at 11:30; Stop 03/20/20 at 11:29; Status DC Fentanyl Citrate (Fentanyl 2ml Vial) 50 mcg PRN Q5MIN PRN IV MODERATE TO SEVERE PAIN; Start 03/19/20 at 11:30; Stop 03/20/20 at 11:29; Status DC Morphine Sulfate (Morphine Sulfate) 1 mg PRN Q10MIN PRN IV SEVERE PAIN 7-10 Last administered on 03/19/20at 13:03; Start 03/19/20 at 11:30; Stop 03/20/20 at 11:29; Status DC Ringer's Solution 1,000 ml @ 30 mls/hr Q24H IV ; Start 03/19/20 at 11:16; Stop 03/19/20 at 15:08; Status DC Hydromorphone HCl (Dilaudid) 0.5 mg PRN Q10MIN PRN IV SEV PAIN, Second choice; Start 03/19/20 at 11:30; Stop 03/20/20 at 11:29; Status DC Prochlorperazine Edisylate (Compazine) 5 mg PACU PRN PRN IV NAUSEA, MRX1; Start 03/19/20 at 11:30; Stop 03/20/20 at 11:29; Status DC Insulin Human Lispro (HumaLOG VIAL for OP,RR ONLY) 0-10 units PRN Q1HR PRN SQ PER PROTOCOL; Start 03/19/20 at 11:30; Stop 03/20/20 at 11:29; Status DC Ondansetron HCl (Zofran) 4 mg STK-MED ONCE .ROUTE ; Start 03/19/20 at 12:09; Stop 03/19/20 at 12:09; Status DC Lidocaine HCl (Lidocaine Pf 2% Vial) 5 ml STK-MED ONCE .ROUTE ; Start 03/19/20 at 12:20; Stop 03/19/20 at 12:21; Status DC Propofol (Diprivan) 200 mg STK-MED ONCE IV ; Start 03/19/20 at 12:20; Stop 03/19/20 at 12:21; Status DC Sevoflurane (Ultane) 15 ml STK-MED ONCE IH ; Start 03/19/20 at 12:20; Stop 03/19/20 at 12:21; Status DC Ketorolac Tromethamine (Toradol 30mg Vial) 15 mg Q6HRS IVP Last administered on 03/20/20at 05:41; Start 03/19/20 at 13:00; Stop 03/20/20 at 06:01; Status DC Oxycodone/ Acetaminophen (Percocet 5/325) 1 tab PRN Q4HRS PRN PO PAIN; Start 03/19/20 at 12:45 Oxycodone/ Acetaminophen (Percocet 5/325) 2 tab PRN Q4HRS PRN PO PAIN Last administered on 03/23/20at 03:52; Start 03/19/20 at 12:45 Potassium Chloride (Klor-Con) 40 meq 1X ONCE PO Last administered on 03/20/20at 12:55; Start 03/20/20 at 12:15; Stop 03/20/20 at 12:19; Status DC Potassium Chloride (Klor-Con) 20 meq DAILYWBKFT PO Last administered on 03/22/20at 08:29; Start 03/21/20 at 08:00 Cefazolin Sodium/ Dextrose (Ancef 2gm Premix) 2 gm STK-MED ONCE IV ; Start 03/19/20 at 15:00; Stop 03/20/20 at 15:20; Status DC Cefazolin Sodium (Ancef) 1 gm Q8HRS IVP Last administered on 03/23/20at 05:05; Start 03/21/20 at 14:00 Lactobacillus Rhamnosus (Culturelle) 1 cap BID PO Last administered on 03/23/20at 09:31; Start 03/21/20 at 21:00 Active Scripts Active Hydrocodone-Apap 5-325 (Hydrocodone Bit/Acetaminophen) 1 Tab Tablet 1 Tab PO PRN Q8HRS PRN Reported Hydrochlorothiazide 25 Mg Tablet 1 Tab PO DAILY Januvia (Sitagliptin Phosphate) 100 Mg Tablet 1 Tab PO DAILY Losartan Potassium 100 Mg Tablet 1 Tab PO DAILY Amlodipine Besylate 10 Mg Tablet 1 Tab PO DAILY Metformin Hcl Er (Metformin Hcl) 750 Mg Tab.er.24h 750 Mg PO DAILYWBKFT Benicar (Olmesartan Medoxomil) 40 Mg Tablet 40 Mg PO DAILY Hydrochlorothiazide Tablet (Hydrochlorothiazide) 50 Mg Tablet 25 Mg PO DAILY Norvasc (Amlodipine Besylate) 10 Mg Tablet 10 Mg PO DAILY Vitals/I & O Vital Sign - Last 24 Hours 03/22/20 03/22/20 03/22/20 03/22/20 11:27 14:00 15:00 15:52 Temp 98.3 98.0 98.3 98.0 Pulse 80 92 Resp 16 16 B/P (MAP) 153/84 (107) 142/74 (96) Pulse Ox 97 97 97 97 O2 Delivery Room Air Room Air Room Air Room Air O2 Flow Rate 10.0 03/22/20 03/22/20 03/22/2020 19:35 19:45 19:51 20:35 Temp 99.6 99.6 Pulse 91 Resp 18 16 18 B/P (MAP) 147/80 (102) Pulse Ox 97 O2 Delivery Room Air Room Air Room Air 03/22/20 03/23/20 03/23/20 03/23/20 23:52 00:00 01:00 03:42 Temp 98.8 98.8 98.8 98.8 Pulse 88 85 Resp 18 18 18 16 B/P (MAP) 135/91 (106) 138/79 (98) Pulse Ox 97 96 O2 Delivery Room Air Room Air 03/23/20 03/23/20 03/23/20 03/23/20 03:52 04:52 07:55 09:28 Temp 98.7 98.7 Pulse 79 79 Resp 18 18 16 B/P (MAP) 177/96 (123) 177/96 Pulse Ox 97 O2 Delivery Room Air Room Air 03/23/20 03/23/20 09:31 11:04 Temp 98.0 98.0 Pulse 79 90 Resp 18 B/P (MAP) 177/96 147/86 (106) Pulse Ox 96 O2 Delivery Room Air Intake and Output 03/22/20 03/22/20 03/23/20 15:00 23:00 07:00 Intake Total 700 ml 850 ml 300 ml Output Total 400 ml Balance 700 ml 450 ml 300 ml Justicifation of Admission Dx: Justifications for Admission: Justification of Admission Dx: Yes Sepsis: Altered Mental Status YADIRA ELIZONDO III DO Mar 23, 2020 11:36
--- NOTE | 2020-03-23 12:12 | PDOC ---
Provider Note Date of Service: DATE: 03/23/20 TIME: 12:12 Provider Note Please see my operative note regarding the timing of definitive surgery. My plan is office follow up on 03/30 to assess the amount of healing of the new epithelium, and to assess the health of the soft tissues. Surgery probably will be 2-3 weeks from the date of injury, to minimize the risk of infection. The patient has fracture blisters which are related to the original trauma. She has diabetes, which is a risk factor for fracture blister formation. She is having wound care, and the ankle is being stabilized with a CAM walker, as treatment for the blisters and as preliminary stabilization of the fractures. Here is some information on fracture blister management from [email or web address]: The most important aspect of fracture blisters is their implication for surgical repair of broken bones. If a patient has developed fracture blisters, surgery sh ould not be performed through the blistered skin. Doing surgery through a fracture blister significantly increases the chance of wound complications, including infection.... Surgery should be delayed: Surgery should not be performed through a fracture blister. The chance of wound complications, including infection, is too high, and surgery should be altered or delayed. Complete healing of a fracture blister may take several weeks.... When they develop, patience is necessary to allow the blister to resolve before proceeding with surgical treatment. Justifications for Admission Other Justification JAMMIE OH MD Mar 23, 2020 12:12
--- NOTE | 2020-03-23 13:10 | NUR ---
SS following up with discharge planning. SS reviewed pt chart and discussed with pt RN. Pt is currently on room air. COVID19 negative. PT/OT recommended home with home healthcare. SS discussed with physician. Pt has fracture blisters at this time preventing her from getting ankle surgery until a later date. Physician discussed with pt and daughter in room. Possible discharge tomorrow with home healthcare. SS met with pt and discussed discharge planning and home healthcare. Pt agreeable to home healthcare with no preference of company. SS phoned and faxed referral to [facility], ; fax [phone]. SS will continue to follow for discharge planning.
--- NOTE | 2020-03-23 14:38 | NUR ---
Wound Care Wound Type/Assessment: Wound care follow regarding right medial or lateral blisters. Wounds cleansed and assessed. pics and measurements taken if not done Monday. KENNETH Richards at bedside to reasses. Treatment Recommendations/Plan: ABD pads, Artiflex (cast padding order from [facility]) change daily. Wear CAM boot at all times. Education provided: Discussed that CAM boot will be serving as a splint for her ankle, and removal of the hard plastic part is not recommended. Educated to turn periodically to prevent pressure sores to other areas of her body. Offloading surface/device: Pillows for comfort, able to self turn Recommended Referrals/Tests: Will reassess 03/27/20 discharge Recommendations for dressings: continue current treatment plan. Bed lowered and call light in reach. Will follow patient regarding wound care.
[2020-03-23] MEDS: fentaNYL PF VIAL 100 MCG/2 ML VIAL IVP PRN (14:53)
[2020-03-23 15:07] VITALS: BP 131/84
[2020-03-23 19:00] VITALS: BP 160/81
[2020-03-23 23:49] VITALS: BP 145/94
[2020-03-24] MEDS: oxyCODONE/APAP 5/325 1 TAB TABLET PO PRN ×3 (02:30→15:23)
[2020-03-24] MEDS: fentaNYL PF VIAL 100 MCG/2 ML VIAL IVP PRN (03:29)
[2020-03-24 03:41] VITALS: BP 166/94
[2020-03-24] MEDS: ceFAZolin SODIUM IV Push 1 GM VIAL. IVP SCH ×2 (05:01→14:00)
[2020-03-24 06:10] LABS: BASO # 0.1 x10^3/uL (0.0-0.2); BASO % 1 % (0-3); EOS # 0.2 x10^3/uL (0.0-0.7); EOS % 3 % (0-3); HEMATOCRIT 36.4 % (36.0-47.0); HEMOGLOBIN 12.3 g/dL (12.0-15.5); LYMPH # 1.7 x10^3/uL (1.0-4.8); LYMPH % 22 % (24-48); MEAN CORPUSCULAR HEMOGLOBIN 30 pg (25-35); MEAN CORPUSCULAR HGB CONC 34 g/dL (31-37); MEAN CORPUSCULAR VOLUME 88 fL (79-100); MONO # 0.7 x10^3/uL (0.0-1.1); MONO % 9 % (0-9); NEUT # 4.9 x10^3/uL (1.8-7.7); NEUT % 65 % (31-73); PLATELET COUNT 285 x10^3/uL (140-400); RED BLOOD COUNT 4.15 x10^6/uL (3.50-5.40); WHITE BLOOD COUNT 7.6 x10^3/uL (4.0-11.0)
[2020-03-24 06:29] LABS: CALCIUM 9.2 mg/dL (8.5-10.1); CREATININE 0.8 mg/dL (0.6-1.0); GFR 86.8; POTASSIUM 3.7 mmol/L (3.5-5.1)
[2020-03-24 07:00] VITALS: BP 132/87
--- NOTE | 2020-03-24 07:52 | PDOC ---
Infectious Disease Note Subjective Subjective Pt is feeling ok, no new complaints ROS ROS no n/v/d/ Vital Sign Vital Signs Vital Signs Date Time Temp Pulse Resp B/P (MAP) Pulse Ox O2 Delivery O2 Flow Rate FiO2 03/24/20 03:59 20 03/24/20 03:41 98.4 85 166/94 (118) 97 Room Air 98.4 03/23/20 15:23 10.0 Physical Exam PHYSICAL EXAM GENERAL: Alert, oriented x 3, pleasant female, lying in bed comfortably, in no acute distress. HEENT: Normocephalic, atraumatic, anicteric. No thrush. NECK: Supple, no JVD. LUNGS: Clear bilaterally. No wheezing. HEART: S1, S2. No gallops or murmurs. ABDOMEN: Soft, obese. Bowel sounds present, nontender, nondistended. EXTREMITIES: Right lower extremity swollen, mainly around the ankle with purplish bruising, likely from underlying hematoma and blisters around the ankle, which have been incised medially, anteriorly and lateral posterior with no fluctuance, blackened skin, likely from previous blister. No underlying fluctuance, no warmth. Mild tenderness, which is from the ankle fracture. NEUROLOGIC: Alert and oriented x 3, grossly nonfocal. PSYCHIATRIC: Cooperative, appropriate mood and affect. DERMATOLOGIC: No generalized rash except for above. Labs Lab Laboratory Tests Test 03/23/20 08:07 03/23/20 11:17 03/23/20 17:21 03/23/20 20:59 Glucose (Fingerstick) 81 mg/dL (70-99) 94 mg/dL (70-99) 118 mg/dL (70-99) 118 mg/dL (70-99) Test 03/24/20 05:15 03/24/20 07:47 White Blood Count 7.6 x10^3/uL (4.0-11.0) Red Blood Count 4.15 x10^6/uL (3.50-5.40) Hemoglobin 12.3 g/dL (12.0-15.5) Hematocrit 36.4 % (36.0-47.0) Mean Corpuscular Volume 88 fL (79-100) Mean Corpuscular Hemoglobin 30 pg (25-35) Mean Corpuscular Hemoglobin Concent 34 g/dL (31-37) Red Cell Distribution Width 15.0 % (11.5-14.5) Platelet Count 285 x10^3/uL (140-400) Neutrophils (%) (Auto) 65 % (31-73) Lymphocytes (%) (Auto) 22 % (24-48) Monocytes (%) (Auto) 9 % (0-9) Eosinophils (%) (Auto) 3 % (0-3) Basophils (%) (Auto) 1 % (0-3) Neutrophils # (Auto) 4.9 x10^3/uL (1.8-7.7) Lymphocytes # (Auto) 1.7 x10^3/uL (1.0-4.8) Monocytes # (Auto) 0.7 x10^3/uL (0.0-1.1) Eosinophils # (Auto) 0.2 x10^3/uL (0.0-0.7) Basophils # (Auto) 0.1 x10^3/uL (0.0-0.2) Sodium Level 138 mmol/L (136-145) Potassium Level 3.7 mmol/L (3.5-5.1) Chloride Level 101 mmol/L (98-107) Carbon Dioxide Level 28 mmol/L (21-32) Anion Gap 9 (6-14) Blood Urea Nitrogen 13 mg/dL (7-20) Creatinine 0.8 mg/dL (0.6-1.0) Estimated GFR (Cockcroft-Gault) 86.8 Glucose Level 115 mg/dL (70-99) Calcium Level 9.2 mg/dL (8.5-10.1) Glucose (Fingerstick) 84 mg/dL (70-99) Objective Assessment 1. Fracture blisters around right ankle fracture.Appears to be mechanical in nature from cast, No evidence of secondary bacterial infection at this time 2. History of mechanical fall. 3. Diabetes mellitus. 4. Hypertension. Plan Plan of Care Continue cefazolin for now. Local wound care as directed. Activity in cam walker usage instructions per Ortho. Follow-up labs and cultures. Continue supportive care.. Patient is awaiting surgery by orthopedics in the near future. Pain control per primary.. MADONNA TONY MD Mar 24, 2020 07:52
[2020-03-24] MEDS: INSULIN LISPRO 300 UNITS/3 ML VIAL. SQ SCH ×3 (08:00→17:00)
[2020-03-24] MEDS: hydroCHLOROthiazide 25 MG TABLET PO SCH (08:49)
[2020-03-24] MEDS: ENOXAPARIN 40 MG/0.4 ML SYRINGE. SQ SCH (08:49)
[2020-03-24] MEDS: LINAGLIPTIN 5 MG TABLET PO SCH (08:49)
[2020-03-24] MEDS: POTASSIUM CHLORIDE 20 MEQ TABLET.ER. PO SCH (08:49)
[2020-03-24] MEDS: LOSARTAN POTASSIUM 50 MG TABLET. PO SCH (08:50)
[2020-03-24] MEDS: amLODIPine BESYLATE 10 MG TABLET PO SCH (08:50)
[2020-03-24] MEDS: LACTOBACILLUS RHAMNOSUS GG 1 CAPSULE. PO SCH (08:50)
[2020-03-24 11:00] VITALS: BP 130/76
--- NOTE | 2020-03-24 12:04 | PDOC ---
PROGRESS NOTES Date of Service: DATE: 03/24/20 TIME: 12:01 Chief Complaint Chief Complaint VTE Prophylaxis Ordered VTE Prophylaxis Devices: No VTE Pharmacological Prophylaxi: Yes Trimalleolar fracture OF right ankle after fall, twisting of right ankle FRACTURE BLISTERS medial blister is 12 cm x 5 cm. The anterior blister over the anterolateral joint is 5 cm x 4 cm. lateral posterior lateral fibular area is 9 cm x 5 cm. anteromedial ankle joint which is a blackened color and perhaps is a ruptured hemorrhagic blister is 3 cm x 1.5 cm. History of Present Illness History of Present Illness 03/24/20 Pt seen and examined DW daughter DW RN AMY case management 03/23/20 Pt seen and examined DW RN who was redressing her wound DW daughter Discussed with case management Vitals Vitals Vital Signs Date Time Temp Pulse Resp B/P (MAP) Pulse Ox O2 Delivery O2 Flow Rate FiO2 03/24/20 11:00 98.0 92 18 130/76 (94) 95 Room Air 98.0 03/23/20 15:23 10.0 Physical Exam Physical Exam General: Alert, Oriented X3, Cooperative, No acute distress, Other Heart: Regular rate, Normal S1, Normal S2, No murmurs Lungs: Clear, Other (no wheezing or crackles) Abdomen: Normal bowel sounds, Soft, No tenderness Extremities: No clubbing, No cyanosis, Other (Edematous right lower extremity with blisters noted) Skin: No rashes, Other (Blisters on right ankle) Labs LABS Laboratory Tests Test 03/23/20 17:21 03/23/20 20:59 03/24/20 05:15 03/24/20 07:47 Glucose (Fingerstick) 118 mg/dL (70-99) 118 mg/dL (70-99) 84 mg/dL (70-99) White Blood Count 7.6 x10^3/uL (4.0-11.0) Red Blood Count 4.15 x10^6/uL (3.50-5.40) Hemoglobin 12.3 g/dL (12.0-15.5) Hematocrit 36.4 % (36.0-47.0) Mean Corpuscular Volume 88 fL (79-100) Mean Corpuscular Hemoglobin 30 pg (25-35) Mean Corpuscular Hemoglobin Concent 34 g/dL (31-37) Red Cell Distribution Width 15.0 % (11.5-14.5) Platelet Count 285 x10^3/uL (140-400) Neutrophils (%) (Auto) 65 % (31-73) Lymphocytes (%) (Auto) 22 % (24-48) Monocytes (%) (Auto) 9 % (0-9) Eosinophils (%) (Auto) 3 % (0-3) Basophils (%) (Auto) 1 % (0-3) Neutrophils # (Auto) 4.9 x10^3/uL (1.8-7.7) Lymphocytes # (Auto) 1.7 x10^3/uL (1.0-4.8) Monocytes # (Auto) 0.7 x10^3/uL (0.0-1.1) Eosinophils # (Auto) 0.2 x10^3/uL (0.0-0.7) Basophils # (Auto) 0.1 x10^3/uL (0.0-0.2) Sodium Level 138 mmol/L (136-145) Potassium Level 3.7 mmol/L (3.5-5.1) Chloride Level 101 mmol/L (98-107) Carbon Dioxide Level 28 mmol/L (21-32) Anion Gap 9 (6-14) Blood Urea Nitrogen 13 mg/dL (7-20) Creatinine 0.8 mg/dL (0.6-1.0) Estimated GFR (Cockcroft-Gault) 86.8 Glucose Level 115 mg/dL (70-99) Calcium Level 9.2 mg/dL (8.5-10.1) Review of Systems Review of Systems co foot pain co swollen ankles Assessment and Plan Assessmemt and Plan Problems Medical Problems: (1) Blister (nonthermal), right lower leg, initial encounter Status: Acute (2) Displaced trimalleolar fracture of right lower leg, initial encounter for closed fracture Status: Acute (3) Trimalleolar fracture of ankle, closed Status: Acute Assessment Trimalleolar fracture Trauma blisters Plan Plan to discharge to home health Dr. Sujit Roberson he plans to do surgery in about a week (a total of 2 weeks after the injury) Continue wound care of the trauma blisters IV PAIN CONTROL Maintain communication with daughter regarding care NPO home meds accuchecks activity as tolerated IV antibiotics As needed pain meds Appreciate subspecialty input Comment Review of Relevant I have reviewed the following items oracio (where applicable) has been applied. Labs Laboratory Tests Test 03/22/20 12:05 03/22/20 17:18 03/22/20 20:48 03/23/20 08:07 Glucose (Fingerstick) 134 mg/dL (70-99) 84 mg/dL (70-99) 148 mg/dL (70-99) 81 mg/dL (70-99) Test 03/23/20 11:17 03/23/20 17:21 03/23/20 20:59 03/24/20 05:15 Glucose (Fingerstick) 94 mg/dL (70-99) 118 mg/dL (70-99) 118 mg/dL (70-99) White Blood Count 7.6 x10^3/uL (4.0-11.0) Red Blood Count 4.15 x10^6/uL (3.50-5.40) Hemoglobin 12.3 g/dL (12.0-15.5) Hematocrit 36.4 % (36.0-47.0) Mean Corpuscular Volume 88 fL (79-100) Mean Corpuscular Hemoglobin 30 pg (25-35) Mean Corpuscular Hemoglobin Concent 34 g/dL (31-37) Red Cell Distribution Width 15.0 % (11.5-14.5) Platelet Count 285 x10^3/uL (140-400) Neutrophils (%) (Auto) 65 % (31-73) Lymphocytes (%) (Auto) 22 % (24-48) Monocytes (%) (Auto) 9 % (0-9) Eosinophils (%) (Auto) 3 % (0-3) Basophils (%) (Auto) 1 % (0-3) Neutrophils # (Auto) 4.9 x10^3/uL (1.8-7.7) Lymphocytes # (Auto) 1.7 x10^3/uL (1.0-4.8) Monocytes # (Auto) 0.7 x10^3/uL (0.0-1.1) Eosinophils # (Auto) 0.2 x10^3/uL (0.0-0.7) Basophils # (Auto) 0.1 x10^3/uL (0.0-0.2) Sodium Level 138 mmol/L (136-145) Potassium Level 3.7 mmol/L (3.5-5.1) Chloride Level 101 mmol/L (98-107) Carbon Dioxide Level 28 mmol/L (21-32) Anion Gap 9 (6-14) Blood Urea Nitrogen 13 mg/dL (7-20) Creatinine 0.8 mg/dL (0.6-1.0) Estimated GFR (Cockcroft-Gault) 86.8 Glucose Level 115 mg/dL (70-99) Calcium Level 9.2 mg/dL (8.5-10.1) Test 03/24/20 07:47 Glucose (Fingerstick) 84 mg/dL (70-99) Laboratory Tests Test 03/23/20 17:21 03/23/20 20:59 03/24/20 05:15 03/24/20 07:47 Glucose (Fingerstick) 118 mg/dL (70-99) 118 mg/dL (70-99) 84 mg/dL (70-99) White Blood Count 7.6 x10^3/uL (4.0-11.0) Red Blood Count 4.15 x10^6/uL (3.50-5.40) Hemoglobin 12.3 g/dL (12.0-15.5) Hematocrit 36.4 % (36.0-47.0) Mean Corpuscular Volume 88 fL (79-100) Mean Corpuscular Hemoglobin 30 pg (25-35) Mean Corpuscular Hemoglobin Concent 34 g/dL (31-37) Red Cell Distribution Width 15.0 % (11.5-14.5) Platelet Count 285 x10^3/uL (140-400) Neutrophils (%) (Auto) 65 % (31-73) Lymphocytes (%) (Auto) 22 % (24-48) Monocytes (%) (Auto) 9 % (0-9) Eosinophils (%) (Auto) 3 % (0-3) Basophils (%) (Auto) 1 % (0-3) Neutrophils # (Auto) 4.9 x10^3/uL (1.8-7.7) Lymphocytes # (Auto) 1.7 x10^3/uL (1.0-4.8) Monocytes # (Auto) 0.7 x10^3/uL (0.0-1.1) Eosinophils # (Auto) 0.2 x10^3/uL (0.0-0.7) Basophils # (Auto) 0.1 x10^3/uL (0.0-0.2) Sodium Level 138 mmol/L (136-145) Potassium Level 3.7 mmol/L (3.5-5.1) Chloride Level 101 mmol/L (98-107) Carbon Dioxide Level 28 mmol/L (21-32) Anion Gap 9 (6-14) Blood Urea Nitrogen 13 mg/dL (7-20) Creatinine 0.8 mg/dL (0.6-1.0) Estimated GFR (Cockcroft-Gault) 86.8 Glucose Level 115 mg/dL (70-99) Calcium Level 9.2 mg/dL (8.5-10.1) Medications Current Medications Morphine Sulfate (Morphine Sulfate) 5 mg 1X ONCE IV Last administered on 03/17/20at 22:58; Start 03/17/20 at 22:15; Stop 03/17/20 at 22:16; Status DC Hydromorphone HCl (Dilaudid) 1 mg PRN Q4HRS PRN IVP SEVERE PAIN 7-10; Start 03/18/20 at 00:45; Stop 03/18/20 at 00:42; Status DC Hydromorphone HCl (Dilaudid) 1 mg PRN Q6HRS PRN IVP SEVERE PAIN 7-10 Last administered on 03/19/20at 08:26; Start 03/18/20 at 00:45; Stop 03/19/20 at 09:12; Status DC Sodium Chloride 1,000 ml @ 100 mls/hr Q10H IV Last administered on 03/18/20at 09:04; Start 03/18/20 at 01:00; Stop 03/18/20 at 09:56; Status DC Fentanyl Citrate (Fentanyl 2ml Vial) 50 mcg PRN Q3HRS PRN IVP SEVERE PAIN, 1ST CHOICE Last administered on 03/24/20at 03:29; Start 03/18/20 at 04:15 Amlodipine Besylate (Norvasc) 10 mg DAILY PO Last administered on 03/24/20at 08:50; Start 03/18/20 at 10:00 Amlodipine Besylate (Norvasc) 10 mg DAILY PO ; Start 03/19/20 at 09:00; Status UNV Hydrochlorothiazide (Hydrodiuril) 25 mg DAILY PO Last administered on 03/24/20at 08:49; Start 03/18/20 at 10:00 Non-Formulary Medication (Hydrochlorothiazide (Hydrochlorothiazide Tablet)) 25 mg DAILY PO ; Start 03/19/20 at 09:00; Status UNV Losartan Potassium (Cozaar) 100 mg DAILY PO Last administered on 03/24/20at 08:50; Start 03/18/20 at 10:00 Non-Formulary Medication (Olmesartan Medoxomil (Benicar)) 40 mg DAILY PO ; Start 03/19/20 at 09:00; Status UNV Linagliptin (Tradjenta) 5 mg DAILY PO Last administered on 03/24/20at 08:49; Start 03/18/20 at 10:00 Potassium Chloride (Klor-Con) 40 meq 1X ONCE PO Last administered on 03/18/20at 14:01; Start 03/18/20 at 10:00; Stop 03/18/20 at 10:01; Status DC Potassium Chloride (Klor-Con) 20 meq DAILYWBKFT PO Last administered on 03/24/20at 08:49; Start 03/19/20 at 08:00 Sodium Chloride (Normal Saline Flush) 3 ml QSHIFT PRN IV AFTER MEDS AND BLOOD DRAWS; Start 03/18/20 at 10:00 Sodium Chloride 1,000 ml @ 100 mls/hr Q10H IV Last administered on 03/20/20at 00:16; Start 03/18/20 at 09:47; Stop 03/20/20 at 18:09; Status DC Ondansetron HCl (Zofran) 4 mg PRN Q4HRS PRN IV NAUSEA/VOMITING; Start 03/18/20 at 10:00 Acetaminophen (Tylenol) 650 mg PRN Q4HRS PRN PO TEMP OVER 100.4F; Start 03/18/20 at 10:00 Al Hydroxide/Mg Hydroxide (Mylanta Plus Xs) 30 ml PRN DAILY PRN PO HEARTBURN / GAS Last administered on 03/23/20at 09:27; Start 03/18/20 at 10:00 Sodium Monofluorophosphate (Fleet Adult) 133 ml PRN DAILY PRN AR CONSTIPATION; Start 03/18/20 at 10:00 Docusate Sodium (Colace) 100 mg PRN BID PRN PO HARD STOOLS; Start 03/18/20 at 10:00 Albuterol Sulfate (Ventolin Neb Soln) 2.5 mg PRN Q4HRS PRN NEB SHORTNESS OF BREATH; Start 03/18/20 at 10:00 Guaifenesin (Robitussin) 200 mg PRN Q4HRS PRN PO COUGH; Start 03/18/20 at 10:00 Lorazepam (Ativan) 0.5 mg PRN Q4HRS PRN PO ANXIETY / AGITATION Last administered on 03/24/20at 03:00; Start 03/18/20 at 10:00 Hydromorphone HCl (Dilaudid) 0.6 mg PRN Q2HRS PRN IV PAIN MODERATE; Start 03/18/20 at 10:00 Enoxaparin Sodium (Lovenox 40mg Syringe) 40 mg Q24H SQ Last administered on 03/24/20at 08:49; Start 03/18/20 at 10:00 Insulin Human Lispro (HumaLOG) 0-5 UNITS TIDWMEALS SQ ; Start 03/18/20 at 12:00 Dextrose (Dextrose 50%-Water Syringe) 12.5 gm PRN Q15MIN PRN IV SEE COMMENTS; Start 03/18/20 at 10:00 Metoprolol Tartrate (Lopressor Vial) 5 mg PRN Q6HRS PRN IVP ELEVATED BP, SEE COMMENTS Last administered on 03/19/20at 01:21; Start 03/18/20 at 10:00; Stop 03/19/20 at 09:43; Status DC Bupivacaine HCl/ Epinephrine Bitart (Sensorcaine-Epi 0.25%-1:854508 Mpf) 30 ml 1X ONCE INJ ; Start 03/19/20 at 08:00; Stop 03/19/20 at 08:01; Status DC Cefazolin Sodium/ Dextrose 50 ml @ 100 mls/hr 1X PREOP PRN IV SEE COMMENTS; Start 03/19/20 at 12:00; Stop 03/21/20 at 11:06; Status DC Potassium Chloride (Klor-Con) 40 meq 1X ONCE PO Last administered on 03/19/20at 14:00; Start 03/19/20 at 10:30; Stop 03/19/20 at 10:31; Status DC Metoprolol Tartrate (Lopressor Vial) 10 mg PRN Q6HRS PRN IVP ELEVATED BP, SEE COMMENTS; Start 03/19/20 at 09:45 Fentanyl Citrate (Fentanyl 2ml Vial) 25 mcg PRN Q5MIN PRN IV MILD PAIN 1-3; Start 03/19/20 at 11:30; Stop 03/20/20 at 11:29; Status DC Fentanyl Citrate (Fentanyl 2ml Vial) 50 mcg PRN Q5MIN PRN IV MODERATE TO SEVERE PAIN; Start 03/19/20 at 11:30; Stop 03/20/20 at 11:29; Status DC Morphine Sulfate (Morphine Sulfate) 1 mg PRN Q10MIN PRN IV SEVERE PAIN 7-10 Last administered on 03/19/20at 13:03; Start 03/19/20 at 11:30; Stop 03/20/20 at 11:29; Status DC Ringer's Solution 1,000 ml @ 30 mls/hr Q24H IV ; Start 03/19/20 at 11:16; Stop 03/19/20 at 15:08; Status DC Hydromorphone HCl (Dilaudid) 0.5 mg PRN Q10MIN PRN IV SEV PAIN, Second choice; Start 03/19/20 at 11:30; Stop 03/20/20 at 11:29; Status DC Prochlorperazine Edisylate (Compazine) 5 mg PACU PRN PRN IV NAUSEA, MRX1; Start 03/19/20 at 11:30; Stop 03/20/20 at 11:29; Status DC Insulin Human Lispro (HumaLOG VIAL for OP,RR ONLY) 0-10 units PRN Q1HR PRN SQ PER PROTOCOL; Start 03/19/20 at 11:30; Stop 03/20/20 at 11:29; Status DC Ondansetron HCl (Zofran) 4 mg STK-MED ONCE .ROUTE ; Start 03/19/20 at 12:09; Stop 03/19/20 at 12:09; Status DC Lidocaine HCl (Lidocaine Pf 2% Vial) 5 ml STK-MED ONCE .ROUTE ; Start 03/19/20 at 12:20; Stop 03/19/20 at 12:21; Status DC Propofol (Diprivan) 200 mg STK-MED ONCE IV ; Start 03/19/20 at 12:20; Stop 03/19/20 at 12:21; Status DC Sevoflurane (Ultane) 15 ml STK-MED ONCE IH ; Start 03/19/20 at 12:20; Stop 03/19/20 at 12:21; Status DC Ketorolac Tromethamine (Toradol 30mg Vial) 15 mg Q6HRS IVP Last administered on 03/20/20at 05:41; Start 03/19/20 at 13:00; Stop 03/20/20 at 06:01; Status DC Oxycodone/ Acetaminophen (Percocet 5/325) 1 tab PRN Q4HRS PRN PO PAIN Last administered on 03/23/20at 11:19; Start 03/19/20 at 12:45 Oxycodone/ Acetaminophen (Percocet 5/325) 2 tab PRN Q4HRS PRN PO PAIN Last administered on 03/24/20at 08:53; Start 03/19/20 at 12:45 Potassium Chloride (Klor-Con) 40 meq 1X ONCE PO Last administered on 03/20/20at 12:55; Start 03/20/20 at 12:15; Stop 03/20/20 at 12:19; Status DC Potassium Chloride (Klor-Con) 20 meq DAILYWBKFT PO Last administered on 03/22/20at 08:29; Start 03/21/20 at 08:00; Stop 03/23/20 at 15:03; Status DC Cefazolin Sodium/ Dextrose (Ancef 2gm Premix) 2 gm STK-MED ONCE IV ; Start 03/19/20 at 15:00; Stop 03/20/20 at 15:20; Status DC Cefazolin Sodium (Ancef) 1 gm Q8HRS IVP Last administered on 03/24/20at 05:01; Start 03/21/20 at 14:00 Lactobacillus Rhamnosus (Culturelle) 1 cap BID PO Last administered on 03/24/20at 08:50; Start 03/21/20 at 21:00 Active Scripts Active Hydrocodone-Apap 5-325 (Hydrocodone Bit/Acetaminophen) 1 Tab Tablet 1 Tab PO PRN Q8HRS PRN Reported Hydrochlorothiazide 25 Mg Tablet 1 Tab PO DAILY Januvia (Sitagliptin Phosphate) 100 Mg Tablet 1 Tab PO DAILY Losartan Potassium 100 Mg Tablet 1 Tab PO DAILY Amlodipine Besylate 10 Mg Tablet 1 Tab PO DAILY Metformin Hcl Er (Metformin Hcl) 750 Mg Tab.er.24h 750 Mg PO DAILYWBKFT Benicar (Olmesartan Medoxomil) 40 Mg Tablet 40 Mg PO DAILY Hydrochlorothiazide Tablet (Hydrochlorothiazide) 50 Mg Tablet 25 Mg PO DAILY Norvasc (Amlodipine Besylate) 10 Mg Tablet 10 Mg PO DAILY Vitals/I & O Vital Sign - Last 24 Hours 03/23/20 03/23/20 03/23/20 03/23/20 12:19 15:07 15:23 19:00 Temp 99.1 99.2 99.1 99.2 Pulse 87 95 Resp 18 18 18 18 B/P (MAP) 131/84 (100) 160/81 (107) Pulse Ox 96 97 97 96 O2 Delivery Room Air Room Air Room Air Room Air O2 Flow Rate 10.0 10.0 03/23/20 03/23/20 03/23/20 03/23/20 19:42 21:05 22:05 23:49 Temp 98.8 98.8 Pulse 83 Resp 18 20 18 B/P (MAP) 145/94 (111) Pulse Ox 97 O2 Delivery Room Air Room Air Room Air 03/24/20 03/24/20 03/24/20 03/24/20 02:30 03:29 03:30 03:41 Temp 98.4 98.4 Pulse 85 Resp 18 18 18 18 B/P (MAP) 166/94 (118) Pulse Ox 97 O2 Delivery Room Air 03/24/20 03/24/20 03/24/20 03/24/20 03:59 07:00 08:00 08:50 Temp 98.4 98.4 Pulse 76 85 Resp 20 18 B/P (MAP) 132/87 (102) 132/87 Pulse Ox 99 O2 Delivery Room Air Room Air 03/24/20 03/24/20 03/24/20 03/24/20 08:50 08:53 09:53 11:00 Temp 98.0 98.0 Pulse 85 92 Resp 18 18 18 B/P (MAP) 132/87 130/76 (94) Pulse Ox 95 O2 Delivery Room Air Room Air Room Air Intake and Output 03/23/20 03/23/20 03/24/20 15:00 23:00 07:00 Intake Total 600 ml 900 ml 0 ml Output Total 400 ml 400 ml 450 ml Balance 200 ml 500 ml -450 ml Justicifation of Admission Dx: Justifications for Admission: Justification of Admission Dx: Yes Sepsis: Altered Mental Status YADIRA ELIZONDO III DO Mar 24, 2020 12:04
--- NOTE | 2020-03-24 12:38 | SNU/HH DC ---
DISCHARGE WITH HOME HEALTH DISCHARGE INFORMATION: Final Diagnosis: Problems Medical Problems: (1) Blister (nonthermal), right lower leg, initial encounter Status: Acute (2) Displaced trimalleolar fracture of right lower leg, initial encounter for closed fracture Status: Acute (3) Trimalleolar fracture of ankle, closed Status: Acute Condition on Discharge: Stable CODE STATUS: Code Status: Full HOME HEALTH: Face to Face: I certify this patient is under my care and that I, or a nurse practitioner or physician's assistant professor of biology working with me, had a face to face encounter that meets the physician face to face encounter requirements with this patient on []. Medical Complications: Other (Recent fall with trimalleolar fracture awaiting surgery next week) RN For Eval/Treatment: Yes Physical Therapy For: Evalulation/Treatment Occupational Therapy For: Evaluation/Treatment Home Health Aide For: Self-care HOST COORDINATOR For: Community Resources Pt Meets Homebound Status: Poor coordination w/ amb. POST DISCHARGE ORDERS: DIET AFTER DISCHARGE: Cardiac CERTIFICATION STATEMENT: Certification Statement: Certification Statement: Based on the above finding, I certify that this patient is confined to the home and needs intermittent prison care, physical therapy and/or speech therapy, or continues to need occupational therapy.~ This patient is under my care, and I have initiated the establishment of the plan of care.~ This patient will be followed by myself or a community physician who will periodically review the plan of care. Home Meds Active Scripts Hydrocodone Bit/Acetaminophen (HYDROCODONE-APAP 5-325 ) 1 Tab Tablet, 1 TAB PO PRN Q8HRS PRN for sev, #8 TAB 0 Refills Prov:CHAVEZ THOMPSON MD 07/31/19 Reported Medications Hydrochlorothiazide (Hydrochlorothiazide) 25 Mg Tablet, 1 TAB PO DAILY for HTN 03/18/20 Sitagliptin Phosphate (JANUVIA) 100 Mg Tablet, 1 TAB PO DAILY for blood sugar 03/18/20 Losartan Potassium (LOSARTAN POTASSIUM) 100 Mg Tablet, 1 TAB PO DAILY for HTN 03/18/20 Amlodipine Besylate (AMLODIPINE BESYLATE) 10 Mg Tablet, 1 TAB PO DAILY for HTN 03/18/20 Metformin Hcl (METFORMIN HCL ER) 750 Mg Tab.er.24h, 750 MG PO DAILYWBKFT for ANTI-DIABETIC, TAB 0 Refills 09/08/16 Olmesartan Medoxomil (BENICAR) 40 Mg Tablet, 40 MG PO DAILY, TAB 09/08/16 Hydrochlorothiazide (HYDROCHLOROTHIAZIDE TABLET) 50 Mg Tablet, 25 MG PO DAILY for DIURETIC, TAB 0 Refills 09/08/16 Amlodipine Besylate (NORVASC) 10 Mg Tablet, 10 MG PO DAILY, TAB 09/08/16 YADIRA ELIZONDO III DO Mar 24, 2020 12:38
[2020-03-24] MEDS ORDERED: OXYC1TAB22 PO (13:13)
[2020-03-24] MEDS ORDERED: AMOX1TAB61 PO (13:14)
--- NOTE | 2020-03-24 13:28 | NUR ---
SS following up with discharge planning. SS reviewed pt chart and discussed with pt RN. Pt is currently on room air. Discharge orders received for home healthcare. SS phoned and faxed discharge orders to [facility], ; [place] [phone]. Pt inquired about knee walker and a commode. SS notified pt that Medicare will not pay for knee walker. Pt reported that she would contact DME company to privately rent knee walker and commode. SS provided pt again with phone number to [employer], ; fax [phone], to make payment arrangements for DME. Pt reporting that she is calling now. Pt's RN notified. SS will continue to follow for discharge planning.
[2020-03-24 15:00] VITALS: BP 124/76
--- NOTE | 2020-03-24 16:45 | NUR ---
Wound Care Wound Type/Assessment: Wound care follow up, per pt and RN request prior to pt's discharge home, regarding right medial and lateral ankle blisters. Wounds cleansed, assessed, measured and photographed. Majority of blistering is deflated, fluid drained out or reabsorbed, remaining areas beneath blisters are dusky red and purplish bruising, unknown depth of tissue damage at this time. Pt has a small area of dry, stable eschar at anterior ankle, no fluctuance noted. Treatment Recommendations/Plan: ABD pads, Artiflex (cast padding), splint, per pt request, wrapped with kerlix, change 2-3x/week, depending on drainage. Education provided: Discussed that CAM boot will be serving as a splint for her ankle, and removal of the hard plastic part is not recommended. Pt declined using the Cam boot, and instead will use the splint, stating the Cam is too heavy. Readdressed NWB status and that pt may benefit from walker, in addition to knee scooter, pt agreed and stated she would purchase the walker. Offloading surface/device: ankle splint or Cam boot Recommended Referrals/Tests: Pt to f/u with Dr. Roberson Discharge Recommendations for dressings: continue current treatment plan above, or changes per Dr. Roberson. Assisted pt to BSC, brief changed, assisted back into recliner. POC discussed with nursing staff.
--- NOTE | 2020-03-24 19:20 | NUR ---
Discharge Note: SRAVANESPERANZA [address] Discharge instructions and discharge home medications reviewed with Patient and a copy given. All questions have been answered and understanding verbalized. Patient instructed to follow up with Dr. Roberson on 03/30/20 and Wound care as needed. Office numbers provided. All belongings taken with patient including CAM boot. Right ankle dressing changed. Education provided on new prescriptions Augmentin and Percocet. Discontinued lines and drains: Peripheral IV intact. Patient discharged to Home with Home Health with Spouse via Wheelchair.
== END 2020-03-24 19:20 | disposition home health service (06) | DRG 563 ==
LOC: ER 19:34 → 2 SOUTH 22:24
PROVIDERS: ADMIT Internal Medicine; ATTEND Internal Medicine
PROC: 2W3LX1Z Immobilization of Right Lower Extremity using Splint (ICD-10-PCS; principal; 2020-03-17)
DX: S82.851A Displaced trimalleolar fracture of right lower leg, initial encounter for closed fracture (principal); I10 Essential (primary) hypertension; E11.9 Type 2 diabetes mellitus without complications; E66.01 Morbid (severe) obesity due to excess calories; I07.1 Rheumatic tricuspid insufficiency; E87.6 Hypokalemia; Z20.828 Contact with and (suspected) exposure to other viral communicable diseases; W01.0XXA Fall on same level from slipping, tripping and stumbling without subsequent striking against object, initial encounter; Z53.8 Procedure and treatment not carried out for other reasons; Z87.442 Personal history of urinary calculi; Z82.49 Family history of ischemic heart disease and other diseases of the circulatory system; Z68.35 Body mass index [BMI] 35.0-35.9, adult; Y93.89 Activity, other specified; Y92.89 Other specified places as the place of occurrence of the external cause; Y99.8 Other external cause status
CPT/HCPCS: 36415; 71045; 73610; 80048; 82306; 82962; 83036; 84145; 85025; 85610; 87426; 87641; 93005; 96372; 96374; 99285; J0690; J1170; J1650; J1815; J1885; J2270; J2405; J2704; J3010; J3490; J7030; 97110-GO; 97110-GP; 97116-GP; 97530-GO; 97530-GP; 97535-GO; G0378; U0003-CS

== ENCOUNTER → 2020-04-03 | Outpatient (CLI) | payer MEDICARE, OTHER ==
[2020-03-24 15:00] VITALS: BP 124/76
[~2020-04-03] MED LIST changes: +AMLO-187 PO; +AMOX1TAB61 PO; +ASPI-630 PO; +FLUT16SP NS; +HYDR25TA10 PO; +LOSA100T14 PO; +OXYC1TAB19 PO; +OXYC1TAB22 PO; +SITA100T PO
== END ==
LOC: LAB 12:54
PROVIDERS: ATTEND Orthopaedic Surgery
DX: Z01.812 Encounter for preprocedural laboratory examination (principal); S82.891A Other fracture of right lower leg, initial encounter for closed fracture; Z20.828 Contact with and (suspected) exposure to other viral communicable diseases; X58.XXXA Exposure to other specified factors, initial encounter; Y93.89 Activity, other specified; Y92.89 Other specified places as the place of occurrence of the external cause; Y99.8 Other external cause status
CPT/HCPCS: U0003

== ENCOUNTER → 2020-06-23 | Outpatient (CLI) | payer MEDICARE, OTHER ==
[2020-04-10 07:50] VITALS: BP 142/79
[~2020-06-23] MED LIST changes: +CALCIUM; +CHOL2400 MC; +VITAMIN K
== END ==
LOC: SPEC 12:31
PROVIDERS: ATTEND Physician Assistant
DX: S82.851D Displaced trimalleolar fracture of right lower leg, subsequent encounter for closed fracture with routine healing (principal); T81.42XD Infection following a procedure, deep incisional surgical site, subsequent encounter; T84.84XD Pain due to internal orthopedic prosthetic devices, implants and grafts, subsequent encounter; X58.XXXD Exposure to other specified factors, subsequent encounter; Y83.1 Surgical operation with implant of artificial internal device as the cause of abnormal reaction of the patient, or of later complication, without mention of misadventure at the time of the procedure
CPT/HCPCS: 87071; 87075

== ENCOUNTER → 2020-06-23 | Outpatient (CLI) | payer MEDICARE, OTHER ==
[2020-04-10 07:50] VITALS: BP 142/79
[~2020-06-23] MED LIST changes: -HYDR50TA6 PO; +HYDR50TA9 PO
== END ==
LOC: LAB 14:45
PROVIDERS: ATTEND Orthopaedic Surgery
DX: Z01.812 Encounter for preprocedural laboratory examination (principal); Z20.828 Contact with and (suspected) exposure to other viral communicable diseases
CPT/HCPCS: U0003

== ENCOUNTER 2020-06-26 12:42 | Day surgery (SDC) | payer MEDICARE, OTHER ==
--- NOTE | 2020-06-25 19:48 | PDOC1 ---
History and Physical Date of Admission Date of Admission 06/26/2020 Identification/Chief Complaint Chief Complaint right ankle retained hardware, and infection Source Source: Chart review, Patient History of Present Illness History of Present Illness Esperanza had an ankle fracture about 10 weeks ago. She had syndesmosis fixation at that time. I recommended future hardware removal. Concurrently she has developed some drainage, and likely requires I&D in addition to the planned hardware removal. Past Medical History Past Medical History DM (Diabetes Mellitus). HTN (Hypertension). AR (Allergic Rhinitis). Colonoscopy 09/08/2016 colon polyps, internal hemorrhoids, diverticulosis. Breast Cancer. Uterine fibroids. Renal Calculus. Abnormal Pap smear. Pneumovax 02/26. Mammograms 06/29, 06/30, 07/01. Cardiovascular: HTN Heme/Onc: No pertinent hx Endocrine: Diabetes Past Surgical History Past Surgical History Breast biopsy 1996 Rt. breast biopsy 02/2013 right ankle ORIF 04/07/2020 Family History Family History: Hypertension Social History ALCOHOL: none Drugs: None Current Medications Current Medications Current Medications Ondansetron HCl (Zofran) 4 mg PRN Q6HRS PRN IV NAUSEA/VOMITING; Start 06/26/20 at 07:00; Stop 06/27/20 at 06:59 Fentanyl Citrate (Fentanyl 2ml Vial) 25 mcg PRN Q5MIN PRN IV MILD PAIN 1-3; Start 06/26/20 at 07:00; Stop 06/27/20 at 06:59 Fentanyl Citrate (Fentanyl 2ml Vial) 50 mcg PRN Q5MIN PRN IV MODERATE TO SEVERE PAIN; Start 06/26/20 at 07:00; Stop 06/27/20 at 06:59 Morphine Sulfate (Morphine Sulfate) 1 mg PRN Q10MIN PRN IV SEVERE PAIN 7-10; Start 06/26/20 at 07:00; Stop 06/27/20 at 06:59 Ringer's Solution 1,000 ml @ 30 mls/hr Q24H IV ; Start 06/26/20 at 07:00; Stop 06/26/20 at 18:59 Lidocaine HCl (Xylocaine-Mpf 1% 2ml Vial) 2 ml PRN 1X PRN ID PRIOR TO IV START; Start 06/26/20 at 07:00; Stop 06/27/20 at 06:59 Hydromorphone HCl (Dilaudid) 0.5 mg PRN Q10MIN PRN IV SEV PAIN, Second choice; Start 06/26/20 at 07:00; Stop 06/27/20 at 06:59 Prochlorperazine Edisylate (Compazine) 5 mg PACU PRN PRN IV NAUSEA, MRX1; Start 06/26/20 at 07:00; Stop 06/27/20 at 06:59 Active Scripts Active Reported Percocet 10-325 Mg Tablet (Oxycodone/Acetaminophen) 1 Each Tablet 1 Tab PO PRN Q4-6HRS PRN MDD 6 Tablet(s) 5 Days [vitamin K2/calcium] DAILY Vitamin D3 (Cholecalciferol (Vitamin D3)) 2,400 Unit/1 Ml Liquid 5,000 Unit MC DAILY Percocet 7.5-325 Mg Tablet (Oxycodone/Acetaminophen) 1 Each Tablet 1 Tab PO PRN Q6HRS PRN Aspirin 81 Mg Tab.chew 1 Tab PO DAILY Januvia (Sitagliptin Phosphate) 100 Mg Tablet 1 Tab PO DAILY Norvasc (Amlodipine Besylate) 10 Mg Tablet 10 Mg PO DAILY16 Hydrochlorothiazide 25 Mg Tablet 1 Tab PO DAILY Losartan Potassium 100 Mg Tablet 1 Tab PO DAILY Metformin Hcl Er (Metformin Hcl) 750 Mg Tab.er.24h 2 Tab PO HS Allergies Allergies: Coded Allergies: No Known Drug Allergies (Unverified , 06/24/20) Images Images [facility] [address] [place] [address] IMAGING REPORT Signed PATIENT: ESPERANZA HINSON ACCOUNT: [id number] : 1955 LOCATION: [facility] AGE: 64 SEX: F EXAM STATUS: PRE CLI ORD. PHYSICIAN: JAMMIE OH MD REASON: f/u right ankle sx 04/07 PROCEDURE: ANKLE RIGHT 3V EXAM: Right ankle 3 views. HISTORY: Fracture follow-up. COMPARISON: 05/04/2020 FINDINGS: Three views of the right ankle are obtained. There are changes of internal fixation of medial malleolar fracture with 2 interfragmentary screws. A distal fibular metadiaphyseal fracture is fixed by a lateral plate and screws and an interfragmentary screw. There are 2 syndesmotic screws. The medial malleolar fracture is detectable and may be healed. There is progressive bridging callus along the fibular fracture. A posterior malleolar fracture is superiorly displaced by 2 mm, unchanged. Early periosteal reaction indicates healing. Soft tissue swelling persists medially and laterally. The alignment of the mortise is maintained. There are moderate plantar and posterior calcaneal spurs. IMPRESSION: 1. Healing trimalleolar fracture as above. Electronically signed by: Shawna Potts MD (05/26/2020 2:09 PM) [facility] DICTATED and SIGNED BY: MATHIEU POTTS MD DATE: 05/26/20 [id number] VTE Prophylaxis Ordered VTE Prophylaxis Devices: Yes VTE Pharmacological Prophylaxi: Yes Assessment/Plan Assessment/Plan She appears infected. We reviewed her previous x-rays and discussed the natural history of the condition along with the risks, benefits, and alternatives to treatment. Although chronic suppression with oral antibiotics may be theoretically indicated, I'm concerned her infection may communicate deeper. Furthermore, she's very close to requiring her 12 week syndesmosis screw removal and would likely do better with washout. Plan for cultures today followed by right ankle incision and drainage with syndesmosis and possible plate hardware removal. We discussed the potential risks of infection, neurovascular injury, re-fracture, bleeding, blood clots, or other potential surgical or anesthetic complications. We also discussed postoperative treatment and expectations. All of her questions were answered and she desires to proceed surgery. Justifications for Admission Other Justification JAMMIE OH MD Jun 25, 2020 19:48
[~2020-06-26 12:42] MED LIST changes: +HYDROmorphone 2 MG/ML VIAL IV PRN; +IV RINGERS,LACTATED 1000ML 1,000 ML IV SCH; +LIDOCAINE 1% PF 2 ML VIAL. ID PRN; +MORPHINE SULFATE 2 MG/ML VIAL. IV PRN; +ONDANSETRON PF 4 MG/2 ML VIAL. IV PRN; +PROCHLORPERAZINE 10 MG/2 ML VIAL. IV PRN; +fentaNYL PF VIAL 100 MCG/2 ML VIAL IV PRN
[2020-06-26] MEDS ORDERED: INSULIN LISPRO 100 UNIT/ML 3ML VIAL for OP,RR ONLY. SQ PRN (13:00)
[2020-06-26] MEDS ORDERED: ONDANSETRON PF 4 MG/2 ML VIAL. ONE (13:26)
[2020-06-26] MEDS ORDERED: DEXAMETHASONE SOD PHOS 4 MG/ML VIAL ONE (13:26)
[2020-06-26] MEDS ORDERED: LIDOCAINE 2% PF 5 ML VIAL. ONE (13:26)
[2020-06-26] MEDS ORDERED: PROPOFOL 10 MG/ML (20ML) VIAL. IV ONE (13:26)
[2020-06-26] MEDS ORDERED: BUPIVACAINE-EPI 0.25%-1:200000 MPF 30 ML VIAL. INJ ONE (13:45)
[2020-06-26] MEDS ORDERED: ceFAZolin SODIUM IV Push 1 GM VIAL. IVP ONE (14:27)
[2020-06-26] MEDS ORDERED: SEVOFLURANE 61 TO 120 MINUTES. IH ONE (14:32)
[2020-06-26] MEDS ORDERED: fentaNYL PF VIAL 100 MCG/2 ML VIAL ONE ×3 (14:33→15:46)
[2020-06-26] MEDS ORDERED: KETOROLAC 30 MG/ML VIAL. ONE (14:34)
--- NOTE | 2020-06-26 16:13 | PDOC4 ---
Operative Note Operative Note Date of Procedure: June 26, 2020 Pre-Op Diagnosis: Other mechanical complication of internal fixation device of other bones, initial encounter T84.298A Infection and inflammatory reaction due to other internal prosthetic devices, implants and grafts, initial encounter T85.79XA Post-Op Diagnosis: same Procedure: CPT 82643 removal of implant deep (e.g., buried wire, pin, screw, nail, bruce, or plate) right ankle Irrigation and debridement right ankle wound Surgeon: Jammie Roberson MD Hard Candy Spinner: LUIS Wyatt Anesthesia: General EBL: 10 mL Specimens Obtained: none Complications: none Drains: none Tourniquet: 6 minutes at 300 mm Hg Indications for Procedure: The patient is a 64-year-old who had a severe trimalleolar ankle fracture dislocation about 3 months ago. She had syndesmosis fixation as part of the index surgery. I had told her at the time of that surgery that she would require removal of the syndesmosis in about 3 months p ostoperatively. Concurrently she has developed an area of drainage on the lateral incision and possible deep infection. I believe it is too early to take out the remaining plates and screws but the plan removal of the syndesmosis screws can proceed, and irrigation and debridement can be performed now with plans for chronic suppression with oral antibiotics until it is time to remove the remaining hardware. The patient and I discussed the risks, benefits and alternatives of surgery. I recommended hardware removal but I discussed the potential risks of refracture, infection, bleeding, blood clots, neurovascular injury, or other potential surgical or anesthetic complications. All of their questions were answered and they desired to proceed with surgery. Procedure in Detail: The patient was identified in the preoperative holding area. The correct right ankle was marked by me. The patient was taken to the operating room where general anesthetic was used. The patient was positioned on the operating table. Preoperative antibiotics were given intravenously. A timeout procedure was performed. A padded tourniquet was applied to the right calf. The limb was prepared in sterile fashion and sterile drapes were applied. Sterile gloves were placed over the toes and heel. An incision was made with a scalpel, utilizing the prior scar, and over the hardware laterally. Sharp dissection was used. There was trace amounts of purulent drainage and slight incisional dehiscence, and swab cultures were taken. Bovie electrocautery was used for dissection and hemostasis. The Julisa InterPulse meter reader chief was used. Copious saline irrigation was performed. The 2 syndesmosis screws were removed without difficulty using the large fragment screwdriver. Additional saline irrigation was performed with the [place] InterPulse meter reader chief. Sharp excisional dissection was performed of some of the deep tissue around the remaining plate and screws. That fracture appears to be healing without difficulty and none of the hardware appears loose. I do not feel it is appropriate to remove the remaining hardware at this time as that fracture has not healed completely. The tourniquet was released. Bovie electrocautery was used for hemostasis. Copious saline irrigation was used. The incision was closed by my market research assistant with #2-0 Vicryl inverted interrupted subcutaneous sutures, and #3-0 Prolene horizontal mattress skin sutures. Local anesthetic with epinephrine was injected into the skin edges. A bulky sterile dressing was applied. Needle and sponge counts were correct. There were no apparent complications. The patient returned to the recovery in stable condition. JAMMIE ROBERSON MD Jun 26, 2020 16:13
[2020-06-26 16:46] VITALS: BP 152/86
== END 2020-06-26 16:55 | disposition home or self-care (01) ==
LOC: SURG 12:42
PROVIDERS: ATTEND Orthopaedic Surgery
DX: T84.298A Other mechanical complication of internal fixation device of other bones, initial encounter (principal); T85.79XA Infection and inflammatory reaction due to other internal prosthetic devices, implants and grafts, initial encounter; T84.84XA Pain due to internal orthopedic prosthetic devices, implants and grafts, initial encounter; T81.42XA Infection following a procedure, deep incisional surgical site, initial encounter; I10 Essential (primary) hypertension; M19.90 Unspecified osteoarthritis, unspecified site; E11.9 Type 2 diabetes mellitus without complications; E66.9 Obesity, unspecified; Z79.82 Long term (current) use of aspirin; Z79.84 Long term (current) use of oral hypoglycemic drugs; Z79.899 Other long term (current) drug therapy; Z98.890 Other specified postprocedural states; X58.XXXA Exposure to other specified factors, initial encounter; Y93.89 Activity, other specified; Y92.89 Other specified places as the place of occurrence of the external cause; Y99.8 Other external cause status
CPT/HCPCS: 20680; 82962; 87071; 87075; A4461; J0690; J1100; J1885; J2405; J2704; J3010; J3490; 87076; 87077; 87186

== ENCOUNTER → 2020-11-16 | Outpatient (CLI) | payer MEDICARE, OTHER ==
[~2020-11-16] MED LIST changes: -HYDROmorphone 2 MG/ML VIAL IV PRN; -IV RINGERS,LACTATED 1000ML 1,000 ML IV SCH; -LIDOCAINE 1% PF 2 ML VIAL. ID PRN; -MORPHINE SULFATE 2 MG/ML VIAL. IV PRN; -ONDANSETRON PF 4 MG/2 ML VIAL. IV PRN; -PROCHLORPERAZINE 10 MG/2 ML VIAL. IV PRN; -fentaNYL PF VIAL 100 MCG/2 ML VIAL IV PRN
--- NOTE | 2020-11-16 12:56 | KCIC ---
EXAM: Abdomen and pelvis CT with intravenous contrast. HISTORY: Left lower quadrant pain. TECHNIQUE: Computed tomographic images of the abdomen and pelvis were obtained following the administ ration of intravenous contrast. Multiplanar reformatting was performed. *One or more of the following individualized dose reduction techniques were utilized for this examina tion: 1. Automated exposure control. 2. Adjustment of the mA and/or kV according to patient size. 3. Use of iterative reconstruction technique. COMPARISON: 07/31/2019. FINDINGS: Evaluation of the lower thorax demonstrates bilateral lower lobe atelectasis. There is no i nfiltrate or pleural effusion. There is stable small hypodense lesions within the liver, attenuation of which on the prior study favors cysts. The gallbladder is unremarkable. There is a stable prominen t common bile duct. No obstructing lesion is seen at the ampulla. The pancreas is unremarkable. There is a stable suspected cyst within the spleen. There is stable left greater than right adrenal gland thickening. There is left greater than right nephrolithiasis. This includes a 10 mm stone within the left renal p haris. There is mild right hydronephrosis and a prominent left renal pelvis. No obstructing stone is seen. There are multiple simple appearing left renal cysts. The bladder is unremarkable. There are ca lcified uterine fibroids. No adnexal mass is seen. There is no appendicitis. There is extensive colonic diverticulosis. There is no convincing acute diverticulitis. There is no b owel obstruction. The aorta is normal in caliber. There is no lymphadenopathy. There is degenerative change involving the spine. There is no acute or suspicious osseous finding. IMPRESSION: 1. Extensive colonic diverticulosis. There is no evidence of diverticulitis. 2. Left greater than right nephrolithiasis, including a 10 mm stone within the left renal pelvis. The re is mild right hydronephrosis and there is a dilated left renal pelvis. However, no obstructing ure teral stone is seen. 3. Multiple hepatic and left renal cysts and suspected small splenic cyst, stable in appearance. 4. Stable adrenal gland thickening. No discrete nodule is seen. Electronically signed by: Yohana Lainez MD (11/16/2020 12:54 PM) [id number]
== END ==
LOC: KCIC CT 10:09
PROVIDERS: ATTEND Family Medicine
DX: K57.30 Diverticulosis of large intestine without perforation or abscess without bleeding (principal); N20.0 Calculus of kidney; N13.30 Unspecified hydronephrosis; N28.1 Cyst of kidney, acquired; K76.89 Other specified diseases of liver; D73.4 Cyst of spleen
CPT/HCPCS: 74176

== ENCOUNTER → 2020-12-25 | Outpatient (CLI) | payer MEDICARE, OTHER ==
--- NOTE | 2020-12-25 17:37 | RAD ---
EXAMINATION: XR HAND_RIGHT 3 VIEWS CLINICAL HISTORY: Right hand pain TECHNIQUE: XR HAND_RIGHT 3 VIEWS Number of Images/Views: 3 COMPARISON: 12/25/2013 FINDINGS: Joint spaces and alignment maintained. No acute fracture. No focal soft tissue swelling. IMPRESSION: No acute osseous abnormality or significant interval change. Electronically signed by: Angelito Arguello DO (12/25/2020 5:35 PM) [id number]
== END ==
LOC: RAD 13:46
PROVIDERS: ATTEND Family Medicine
DX: M79.641 Pain in right hand (principal)
CPT/HCPCS: 73130

== ENCOUNTER → 2021-08-18 | Outpatient (CLI) | payer MEDICARE, OTHER ==
--- NOTE | 2021-08-19 09:30 | KCIC ---
EXAM: XR LUMBAR SPINE 2-3V 08/18/2021 2:57 PM CLINICAL INDICATION: Low back pain at multiple sites COMPARISON: CT abdomen and pelvis 11/16/2020 TECHNIQUE: 3 views of the lumbar spine FINDINGS: There are 5 nonrib-bearing lumbar vertebral bodies. No acute fracture. Alignment is normal . There is mild disc space narrowing and tiny anterior osteophytes throughout the lumbar spine, great est at L5-S1. Mild facet arthrosis at L4-L5. There is a 1 cm calcification in the left lower quadrant at the level of L3-L4, possibly a calculus in the inferior left renal pole or in the left ureter. IMPRESSION: 1. Mild degenerative disc disease. 2. 1 cm calculus in the inferior left renal pole versus left ureter. Electronically signed by: Shanti Valdez MD (08/19/2021 9:27 AM) [id number]
== END ==
LOC: KCIC 14:52
PROVIDERS: ATTEND Family Medicine
DX: M51.36 Other intervertebral disc degeneration, lumbar region (principal); N20.0 Calculus of kidney; M48.07 Spinal stenosis, lumbosacral region; M47.816 Spondylosis without myelopathy or radiculopathy, lumbar region
CPT/HCPCS: 72100

== ENCOUNTER 2021-09-20 06:06 | Day surgery (SDC) | payer MEDICARE, OTHER ==
[~2021-09-20] VITALS: Ht 168.9 cm; Wt 206.0 kg
[~2021-09-20 06:06] MED LIST changes: +ACET325T9 PO; +DICY20TA PO; +NAPR220T70 PO
[2021-09-20 06:35] VITALS: BP 155/88
[2021-09-20] MEDS ORDERED: INSULIN LISPRO 100 UNIT/ML 3ML VIAL for OP,RR ONLY. SQ PRN (06:45)
[2021-09-20] MEDS ORDERED: BUPIVACAINE MPF 0.25% 30 ML VIAL. ONE (06:57)
[2021-09-20] MEDS ORDERED: IV RINGERS,LACTATED 1000ML 1,000 ML IV SCH ×2 (07:00→08:15)
[2021-09-20] MEDS ORDERED: fentaNYL PF VIAL 100 MCG/2 ML VIAL ONE (07:01)
[2021-09-20] MEDS ORDERED: DEXAMETHASONE SOD PHOS 4 MG/ML VIAL ONE (07:01)
[2021-09-20] MEDS ORDERED: ONDANSETRON PF 4 MG/2 ML VIAL. ONE (07:01)
[2021-09-20] MEDS ORDERED: LIDOCAINE 2% PF 5 ML VIAL. ONE (07:01)
[2021-09-20] MEDS ORDERED: PROPOFOL 10 MG/ML (20ML) VIAL. IV ONE (07:01)
[2021-09-20] MEDS ORDERED: MIDAZOLAM HCL/PF 2 MG/2 ML VIAL. ONE (07:06)
[2021-09-20] MEDS ORDERED: TRAM50TA PO (07:34)
--- NOTE | 2021-09-20 08:04 | PDOC4 ---
OPERATIVE NOTE Date: Date: Sep 20, 2021 Pre-Op Diagnosis: Trigger finger right ring finger Post-Op Diagnosis: Same Procedure Performed: Trigger finger release right ring finger Surgeon: Summer Anesthesia Type: General Blood Loss: 5 mL Specimans Obtained: None Findings: See dictation Complications: None BRIAN TINSLEY Jr. DO Sep 20, 2021 08:04
[2021-09-20] MEDS ORDERED: PROCHLORPERAZINE 10 MG/2 ML VIAL. IVP PRN (08:15)
[2021-09-20] MEDS ORDERED: HYDROmorphone 2 MG/ML INJ. IVP PRN (08:15)
[2021-09-20] MEDS ORDERED: MORPHINE SULFATE 2 MG/ML INJ. IVP PRN (08:15)
[2021-09-20] MEDS ORDERED: fentaNYL PF VIAL 100 MCG/2 ML VIAL IVP PRN ×2 (08:15)
[2021-09-20 08:44] VITALS: BP 145/89
--- NOTE | 2021-09-20 11:20 | OP ---
DATE OF SURGERY: 09/20/2021 PREOPERATIVE DIAGNOSIS: Trigger finger, right ring finger. POSTOPERATIVE DIAGNOSIS: Trigger finger, right ring finger. PROCEDURE: Release A1 pedro, right ring finger. SURGEON: Guy Wheeler Jr, DO SAND BOBBER: EDMAR Marks ANESTHESIA: General. COMPLICATIONS: None. ESTIMATED BLOOD LOSS: 5 mL. DESCRIPTION OF PROCEDURE: Right upper extremity was then prepped and draped in a sterile fashion. Incision was made directly over the area of the A1 pedro. This was carefully taken through skin and subcutaneous tissues, dissecting down to identify the A1 pedro. This was easily identified and released in its entirety. The underlying tendons were noted to be intact without any tearing or fraying at this point. They were fully released and evaluated. This was then thoroughly irrigated. The wound was reapproximated in an interrupted fashion using 3-0 nylon. Local was placed within the area of the incision site itself. Sterile dressing was applied. Tourniquet was deflated with good return of pulses and capillary refill with no excessive bleeding noted. The patient was then taken from the operative bed to the postoperative bed, taken to the PACU in stable condition. ZAINAB DR: Geoffrey TID: [id number]
== END 2021-09-20 09:10 | disposition home or self-care (01) ==
LOC: SURG 06:06
PROVIDERS: ATTEND Orthopaedic Surgery
DX: M65.341 Trigger finger, right ring finger (principal); I10 Essential (primary) hypertension; E11.9 Type 2 diabetes mellitus without complications; E66.9 Obesity, unspecified; M19.90 Unspecified osteoarthritis, unspecified site; Z79.82 Long term (current) use of aspirin; Z79.84 Long term (current) use of oral hypoglycemic drugs; Z79.899 Other long term (current) drug therapy; Z98.890 Other specified postprocedural states
CPT/HCPCS: 26055; 82962; J0690; J1100; J2250; J2405; J2704; J3010; J3490; A4223; A4657; A4930; A6402; A6452